=== PATIENT | male | born 1940 | race Hispanic/Latino ===

== ENCOUNTER 2021-05-14 15:57 | Inpatient (IN) | payer MEDICARE, OTHER ==
--- NOTE | 2021-05-15 08:20 | History and Physical Report ---
GP History & Physical - History of Present Illness Date of admission: 05/15/21 Date of Examination: 05/15/21 Reason for Admission: Danger to self, Danger to others, Failure of Outpatient Treatment History of Present Illness: The patient is an 80 year male with history of dementia who was admitted for stabilization. In my encounter with the patient, he is alert to self and confused. The patient is not engaging. Unable to asses SI/HI/AVHs. PAST PSYCHIATRIC HISTORY PAST MEDICAL HISTORY: unknown Family Psychiatric History: unknown SOCIAL HISTORY REVIEW OF SYSTEMS MENTAL STATUS EXAMINATION Assessment and Plan (1) Dementia with behavioral disturbance Treatment Plan Patient admitted for inpatient psychiatric evaluation, medication adjustment and close monitoring The patient's behavior, mood, sleep and appetite will be closely monitored. Patient enrolled in individual and group therapeutic sessions and encouraged to attend. Patient provided with a safe and structured environment. Patient's physical health needs will be addressed by the Hospitalist. Hospitalist Consulted Labs including CBC, CMP, Lipid profile and Hemoglobin A1C levels ordered for baseline reference Social Assessment will be completed and the Primary Care Coordinator will work with patient and family to ensure a suitable and safe disposition Medication adjustment will be made as clinically indicated Continue home meds Usual Wellness Moravian/Preservation: - Start Trazodone 50 mg po QHS & 50 mg po QHS PRN between 10 PM & 2 AM for insomnia - Start Melatonin 5 mg po QHS to promote circadian rhythm The patient agreed on the treatment plan, understood the risk, benefit, alternative treatment, potential consequence of no treatment, and gave informed consent. Estimated days: 7 Post hospital care: primary care provider, psychiatric provider Case staffed with Dr. Morocho Medications and Allergies Patient Problems: Current Active Problems Medications and Allergies Medications and Allergies Allergies Allergy/AdvReac Type Severity Reaction Status Date / Time ibuprofen Allergy Unknown Unverified 05/14/21 16:04 Home Medications Medication Instructions Recorded Confirmed Last Taken Type ALPRAZolam [Xanax TAB] 0.25 mg PO UNK PRN 05/15/21 05/15/21 Unknown History Acyclovir [Zovirax Tab] 400 mg PO BID 05/15/21 05/15/21 Unknown History Apixaban [Eliquis] 2.5 mg PO QHS 05/15/21 05/15/21 Unknown History Aspirin [[place] Aspirin EC] 81 mg PO DAILY 05/15/21 05/15/21 Unknown History Carbidopa/Levodopa [Rytary ER 1 each PO UNK 05/15/21 05/15/21 Unknown History 61.25 mg-245 mg Cap] Famotidine [Pepcid] 40 mg PO DAILY 05/15/21 05/15/21 Unknown History Fluticasone/Salmeterol [Advair 1 each IH UNK 05/15/21 05/15/21 Unknown History 250-50 Diskus] Midodrine [Proamatine] 5 mg PO QDAY 05/15/21 05/15/21 Unknown History OLANzapine [ZyPREXA] 2.5 mg PO QHS 05/15/21 05/15/21 Unknown History Pimavanserin Tartrate [Nuplazid] 34 mg PO UNK 05/15/21 05/15/21 Unknown History Venlafaxine [Effexor] 75 mg PO DAILY 05/15/21 05/15/21 Unknown History amantadine HCL [Amantadine] 100 mg PO QDAY 05/15/21 05/15/21 Unknown History traZODone [Desyrel] 100 mg PO QHS 05/15/21 05/15/21 Unknown History Results - Results Labs/Vitals: Last Vital Signs Temp 98.9 F 05/14/21 22:55 Pulse 97 H 05/14/21 22:55 Resp 20 05/14/21 22:55 BP 177/102 05/14/21 22:55 Pulse Ox 98 05/14/21 22:55 Physical Examination - Constitutional Vitals: Vital Signs Temp Pulse Resp BP Pulse Ox 98.9 F 97 H 20 177/102 98 05/14/21 22:55 05/14/21 22:55 05/14/21 22:55 05/14/21 22:55 05/14/21 22:55 Temperature -Last 24 Hours Temperature 98.9 F Mental Status Exam - Vital signs Last Vital Signs Temp 98.9 F 05/14/21 22:55 Pulse 97 H 05/14/21 22:55 Resp 20 05/14/21 22:55 BP 177/102 05/14/21 22:55 Pulse Ox 98 05/14/21 22:55 Physician Certification - Certification Statement Physician Certification Statement: This is an acknowledgement statement that NAVEEN HOFFMAN JOSE is a 80 year old M who requires inpatient psychiatric admission for treatment which could reasonably be expected to improve the patient's condition for Estimated period of time patient will need to remain in the hospital: [ ] Plan for post-hospital care: [ ]
[2021-05-15] MEDS ORDERED: [UNRECOGNIZED DRUG - OTHER] PO SCH (08:30)
[2021-05-15] MEDS ORDERED: LEVODOPA PO SCH (08:30)
[2021-05-15] MEDS ORDERED: CARBIDOPA PO SCH (08:30)
[2021-05-15] MEDS ORDERED: NON-FORMULARY EACH (Fluticasone/Salmeterol [Advair Diskus 250-50 Mcg] 1 EACH Blst.W.Dev) IH SCH (08:30)
--- NOTE | 2021-05-15 09:11 | Consultation ---
History of Present Illness - Reason for Consult Consult date: 05/15/21 Medical consult Requesting physician: DIPAK HUDSON - History of Present Illness Patient was admitted to [facility] for further evaluation and management Hospitalist service was requested for medical consult Past History Past Medical History: other (Organic brain syndrome, depression, dementia, Parkinson's disease) Past Surgical History: No surgical history Social history: smoking (Former smoker/quit many years ago). denies: alcohol abuse Family history: no significant family history Medications and Allergies Allergies Allergy/AdvReac Type Severity Reaction Status Date / Time ibuprofen Allergy Unknown Unverified 05/14/21 16:04 Home Medications Medication Instructions Recorded Confirmed Last Taken Type ALPRAZolam [Xanax TAB] 0.25 mg PO UNK PRN 05/15/21 05/15/21 Unknown History Acyclovir [Zovirax Tab] 400 mg PO BID 05/15/21 05/15/21 Unknown History Apixaban [Eliquis] 2.5 mg PO QHS 05/15/21 05/15/21 Unknown History Aspirin [[place] Aspirin EC] 81 mg PO DAILY 05/15/21 05/15/21 Unknown History Carbidopa/Levodopa [Rytary ER 1 each PO QID 05/15/21 05/16/21 Unknown History 61.25 mg-245 mg Cap] Famotidine [Pepcid] 40 mg PO DAILY 05/15/21 05/15/21 Unknown History Fluticasone/Salmeterol [Advair 1 each IH UNK 05/15/21 05/15/21 Unknown History 250-50 Diskus] Midodrine [Proamatine] 5 mg PO QDAY 05/15/21 05/15/21 Unknown History OLANzapine [ZyPREXA] 2.5 mg PO QHS 05/15/21 05/15/21 Unknown History Pimavanserin Tartrate [Nuplazid] 34 mg PO UNK 05/15/21 05/15/21 Unknown History Venlafaxine [Effexor] 75 mg PO DAILY 05/15/21 05/15/21 Unknown History amantadine HCL [Amantadine] 100 mg PO QDAY 05/15/21 05/15/21 Unknown History traZODone [Desyrel] 100 mg PO QHS 05/15/21 05/15/21 Unknown History Active Meds: Active Medications Alprazolam (Alprazolam 0.25 Mg Tab) 0.25 mg PO UNK PRN PRN Reason: UNK Amantadine HCl (Amantadine 100 Mg Cap) 100 mg PO QDAY NIELS Aspirin (Aspirin Ec 81 Mg Tab) 81 mg PO DAILY NIELS Miscellaneous Medication (Acyclovir [Zovirax Tab]) 400 mg PO BID NIELS Miscellaneous Medication (Apixaban) 2.5 mg PO QHS NIELS Miscellaneous Medication (Carbidopa/Levodopa [Rytary Er 61.25 Mg-245 Mg Cap]) 1 each PO UNK NIELS Miscellaneous Medication (Famotidine [Pepcid]) 40 mg PO DAILY NIELS Miscellaneous Medication (Fluticasone/Salmeterol [Advair Diskus 250-50 Mcg]) 1 each IH UNK NIELS Olanzapine (Olanzapine 2.5 Mg Tab) 2.5 mg PO QHS NIELS Trazodone HCl (Trazodone 100 Mg Tab) 100 mg PO QHS NIELS Venlafaxine HCl (Venlafaxine 75 Mg Tab) 75 mg PO DAILY [facility] Review of Systems ROS unobtainable: due to mental status Exam - Constitutional Vitals: Temp Pulse Resp BP Pulse Ox 98.9 F 97 H 20 177/102 98 05/14/21 22:55 05/14/21 22:55 05/14/21 22:55 05/14/21 22:55 05/14/21 22:55 General appearance: Present: no acute distress, well-nourished - EENT Eyes: Present: PERRL, EOM intact - Neck Neck: Present: supple, normal ROM - Respiratory Respiratory effort: normal Respiratory: bilateral: diminished, negative: rales, rhonchi, wheezing - Cardiovascular Rhythm: regular Heart Sounds: Present: S1 & S2 - Extremities Extremities: no ischemia, No edema - Abdominal General gastrointestinal: Present: soft, non-tender, non-distended, normal bowel sounds - Integumentary Integumentary: Present: clear, warm - Musculoskeletal Musculoskeletal: strength equal bilaterally, generalized weakness - Psychiatric Psychiatric: appropriate mood/affect, cooperative, other (Confused at times) - Neurologic Neurologic: moves all extremities Results - Labs CBC & Chem 7: 05/15/21 14:49 05/15/21 14:49 Assessment and Plan --History of depression; Management per psych team Supportive care --Dementia; Resume home medications, supportive care --Parkinson's disease; Resume home Parkinson's medications Physical therapy, fall precautions Supportive care --History of atrial fibrillation; Rate controlled, continue current management --Chronic anticoagulation/A. fib Continue Eliquis, supportive care --DVT prophylaxis; Patient is already on Eliquis --Full CODE STATUS; Closely monitor the patient and adjust the management as needed Plan of care reviewed with the patient and his nurse Thank you for this consultation We will follow the patient along with you Call us with questions
[2021-05-15] MEDS ORDERED: ACYCLOVIR 400 MG PO SCH (10:00)
[2021-05-15] MEDS ORDERED: NON-FORMULARY EACH (Famotidine [Pepcid] 40 MG Tablet) PO SCH (10:00)
[2021-05-15] MEDS: ASPIRIN EC 81 MG TAB PO SCH (10:02)
[2021-05-15] MEDS: FAMOTIDINE 20 MG TAB PO SCH (10:03)
[2021-05-15] MEDS: VENLAFAXINE 75 MG TAB PO SCH (10:03)
[2021-05-15] MEDS: ACYCLOVIR 200 MG CAP PO SCH ×2 (13:00→21:04)
[2021-05-15] MEDS: APIXABAN 2.5 MG TAB PO SCH ×2 (14:45→21:04)
[2021-05-15 15:37] LABS: Basophils % (Auto) 0.6 % (0.0-1.8); Eosinophils # (Auto) 0.1 K/mm3 (0.0-0.4); Eosinophils % (Auto) 1.4 % (0.0-4.3); Hemoglobin 12.4 gm/dl (11.8-15.2); Lymphocytes # (Auto) 0.5 K/mm3 (1.2-5.4); Lymphocytes % (Auto) 6.8 % (13.4-35.0); Mean Corpuscular HGB Conc 34 % (32-34); Mean Corpuscular Volume 103 fl (84-94); Monocytes # (Auto) 0.5 K/mm3 (0.0-0.8); Monocytes % (Auto) 6.6 % (0.0-7.3); Platelet Count 292 K/mm3 (140-440); Red Blood Count 3.49 M/mm3 (3.65-5.03); Red Cell Distribution Width 13.4 % (13.2-15.2)
[2021-05-15 15:53] LABS: Albumin 4.3 g/dL (3.9-5); Calcium 9.5 mg/dL (8.4-10.2)
[2021-05-15 16:23] LABS: Chol/HDL Ratio 3.85 %
[2021-05-15] MEDS ORDERED: ALPRAZolam 0.25 MG TAB PO PRN (18:00)
[2021-05-15] MEDS: traZODone 100 MG TAB PO SCH (21:04)
[2021-05-15] MEDS ORDERED: NON-FORMULARY EACH (Apixaban 2.5 MG Tablet) PO SCH (22:00)
[2021-05-16] MEDS: APIXABAN 2.5 MG TAB PO SCH ×3 (01:46→21:28)
[2021-05-16] MEDS: traZODone 100 MG TAB PO SCH ×2 (01:46→21:23)
[2021-05-16] MEDS: ACYCLOVIR 200 MG CAP PO SCH ×3 (01:47→21:22)
[2021-05-16] MEDS: FAMOTIDINE 20 MG TAB PO SCH (09:35)
[2021-05-16] MEDS: ASPIRIN EC 81 MG TAB PO SCH (09:35)
[2021-05-16] MEDS: VENLAFAXINE 75 MG TAB PO SCH (09:35)
--- NOTE | 2021-05-16 10:32 | Progress Note ---
Subjective Date of service: 05/16/21 Subjective Comment: 05/16/21: The patient was seen this morning with his head downward and poor eye contact. The patient is confused. He states " I want to take a nap, that's all I want to do." He denies any current suicidal/homicidal ideation and denies hallucinations. per nurse, "pt is alert and oriented to person, irritable, combative, refused medication." REVIEW OF SYSTEMS MENTAL STATUS EXAMINATION Assessment and Plan (1) Dementia with behavioral disturbance Treatment Plan Patient admitted for inpatient psychiatric evaluation, medication adjustment and close monitoring The patient's behavior, mood, sleep and appetite will be closely monitored. Patient enrolled in individual and group therapeutic sessions and encouraged to attend. Patient provided with a safe and structured environment. Patient's physical health needs will be addressed by the Hospitalist. Hospitalist Consulted Labs including CBC, CMP, Lipid profile and Hemoglobin A1C levels ordered for baseline reference Social Assessment will be completed and the Auto Mechanics Instructor will work with patient and family to ensure a suitable and safe disposition Medication adjustment will be made as clinically indicated Continue home meds Usual Wellness Shinto/Preservation: - Start Trazodone 50 mg po QHS & 50 mg po QHS PRN between 10 PM & 2 AM for insomnia - Start Melatonin 5 mg po QHS to promote circadian rhythm The patient agreed on the treatment plan, understood the risk, benefit, alternative treatment, potential consequence of no treatment, and gave informed consent. Estimated days: 6 Post hospital care: primary care provider, psychiatric provider Case staffed with Dr. Morocho Medications and Allergies Patient Problems: Current Active Problems Medications and Allergies Medications and Allergies Allergies Allergy/AdvReac Type Severity Reaction Status Date / Time ibuprofen Allergy Unknown Unverified 05/14/21 16:04 Home Medications Medication Instructions Recorded Confirmed Last Taken Type ALPRAZolam [Xanax TAB] 0.25 mg PO UNK PRN 05/15/21 05/15/21 Unknown History Acyclovir [Zovirax Tab] 400 mg PO BID 05/15/21 05/15/21 Unknown History Apixaban [Eliquis] 2.5 mg PO QHS 05/15/21 05/15/21 Unknown History Aspirin [[place] Aspirin EC] 81 mg PO DAILY 05/15/21 05/15/21 Unknown History Carbidopa/Levodopa [Rytary ER 1 each PO UNK 05/15/21 05/15/21 Unknown History 61.25 mg-245 mg Cap] Famotidine [Pepcid] 40 mg PO DAILY 05/15/21 05/15/21 Unknown History Fluticasone/Salmeterol [Advair 1 each IH UNK 05/15/21 05/15/21 Unknown History 250-50 Diskus] Midodrine [Proamatine] 5 mg PO QDAY 05/15/21 05/15/21 Unknown History OLANzapine [ZyPREXA] 2.5 mg PO QHS 05/15/21 05/15/21 Unknown History Pimavanserin Tartrate [Nuplazid] 34 mg PO UNK 05/15/21 05/15/21 Unknown History Venlafaxine [Effexor] 75 mg PO DAILY 05/15/21 05/15/21 Unknown History amantadine HCL [Amantadine] 100 mg PO QDAY 05/15/21 05/15/21 Unknown History traZODone [Desyrel] 100 mg PO QHS 05/15/21 05/15/21 Unknown History Active Meds: Active Medications Acyclovir (Acyclovir 200 Mg Cap) 400 mg PO BID [facility] Last Admin: 05/16/21 09:35 Dose: 400 mg Alprazolam (Alprazolam 0.25 Mg Tab) 0.25 mg PO QPM PRN PRN Reason: NERVES Amantadine HCl (Amantadine 100 Mg Cap) 100 mg PO QDAY [facility] Last Admin: 05/15/21 13:00 Dose: 100 mg Apixaban (Apixaban 2.5 Mg Tab) 2.5 mg PO Q12HR [facility]; Protocol Last Admin: 05/16/21 09:35 Dose: 2.5 mg Arformoterol Tartrate (Arformoterol 15 Mcg/2 Ml Nebu) 15 mcg IH Q12HRT [facility] Aspirin (Aspirin Ec 81 Mg Tab) 81 mg PO DAILY [facility] Last Admin: 05/16/21 09:35 Dose: 81 mg Budesonide (Budesonide 0.5 Mg/2 Ml Nebu) 0.5 mg IH Q12HRT [facility] Famotidine (Famotidine 20 Mg Tab) 40 mg PO DAILY [facility] Last Admin: 05/16/21 09:35 Dose: 40 mg Miscellaneous Medication (Carbidopa/Levodopa [Rytary Er 61.25 Mg-245 Mg Cap]) 1 each PO UNK [facility] Olanzapine (Olanzapine 2.5 Mg Tab) 2.5 mg PO QHS [facility] Last Admin: 05/15/21 21:04 Dose: 2.5 mg Trazodone HCl (Trazodone 100 Mg Tab) 100 mg PO QHS [facility] Last Admin: 05/16/21 01:46 Dose: Not Given Venlafaxine HCl (Venlafaxine 75 Mg Tab) 75 mg PO DAILY [facility] Last Admin: 05/16/21 09:35 Dose: 75 mg Results - Results Labs/Vitals: Laboratory Last Values WBC 8.0 K/mm3 (4.5-11.0) 05/15/21 14:49 RBC 3.49 M/mm3 (3.65-5.03) L 05/15/21 14:49 Hgb 12.4 gm/dl (11.8-15.2) 05/15/21 14:49 Hct 36.0 % (35.5-45.6) 05/15/21 14:49 MCV 103 fl (84-94) H 05/15/21 14:49 MCH 36 pg (28-32) H 05/15/21 14:49 MCHC 34 % (32-34) 05/15/21 14:49 RDW 13.4 % (13.2-15.2) 05/15/21 14:49 Plt Count 292 K/mm3 (140-440) 05/15/21 14:49 Lymph % (Auto) 6.8 % (13.4-35.0) L 05/15/21 14:49 [place] % (Auto) 6.6 % (0.0-7.3) 05/15/21 14:49 Eos % (Auto) 1.4 % (0.0-4.3) 05/15/21 14:49 Baso % (Auto) 0.6 % (0.0-1.8) 05/15/21 14:49 Lymph # (Auto) 0.5 K/mm3 (1.2-5.4) L 05/15/21 14:49 [place] # (Auto) 0.5 K/mm3 (0.0-0.8) 05/15/21 14:49 Eos # (Auto) 0.1 K/mm3 (0.0-0.4) 05/15/21 14:49 Baso # (Auto) 0.0 K/mm3 (0.0-0.1) 05/15/21 14:49 Seg Neutrophils % 84.6 % (40.0-70.0) H 05/15/21 14:49 Seg Neutrophils # 6.8 K/mm3 (1.8-7.7) 05/15/21 14:49 Sodium 140 mmol/L (137-145) 05/15/21 14:49 Potassium 4.7 mmol/L (3.6-5.0) 05/15/21 14:49 Chloride 101.5 mmol/L (98-107) 05/15/21 14:49 Carbon Dioxide 21 mmol/L (22-30) L 05/15/21 14:49 Anion Gap 22 mmol/L 05/15/21 14:49 BUN 45 mg/dL (9-20) H 05/15/21 14:49 Creatinine 1.8 mg/dL (0.8-1.3) H 05/15/21 14:49 Estimated GFR 36 ml/min 05/15/21 14:49 BUN/Creatinine Ratio 25 % 05/15/21 14:49 Glucose 117 mg/dL (75-100) H 05/15/21 14:49 Hemoglobin A1c 4.9 % (4-6) 05/15/21 14:49 Calcium 9.5 mg/dL (8.4-10.2) 05/15/21 14:49 Total Bilirubin 0.30 mg/dL (0.1-1.2) 05/15/21 14:49 AST 19 units/L (5-40) 05/15/21 14:49 ALT 14 units/L (7-56) 05/15/21 14:49 Alkaline Phosphatase 89 units/L (35-129) 05/15/21 14:49 Total Protein 7.5 g/dL (6.3-8.2) 05/15/21 14:49 Albumin 4.3 g/dL (3.9-5) 05/15/21 14:49 Albumin/Globulin Ratio 1.3 % 05/15/21 14:49 Triglycerides 119 mg/dL (2-149) 05/15/21 14:49 Cholesterol 235 mg/dL (50-199) H 05/15/21 14:49 LDL Cholesterol Direct 161 mg/dL (50-130) H 05/15/21 14:49 HDL Cholesterol 61 mg/dL (40-59) H 05/15/21 14:49 Cholesterol/HDL Ratio 3.85 % 05/15/21 14:49 TSH 6.060 mlU/mL (0.270-4.200) H 05/15/21 14:49 Last Vital Signs Temp 98.7 F 05/15/21 19:20 Pulse 104 H 05/15/21 19:20 Resp 17 05/15/21 19:20 BP 176/88 05/15/21 19:20 Pulse Ox 96 05/15/21 19:20
[2021-05-16] MEDS: ARFORMOTEROL 15 MCG/2 ML NEBU IH SCH ×3 (12:21→22:17)
[2021-05-16] MEDS: BUDESONIDE 0.5 MG/2 ML NEBU IH SCH ×3 (12:22→22:17)
[2021-05-16] MEDS: LEVODOPA PO SCH ×2 (18:51→21:19)
[2021-05-16] MEDS: CARBIDOPA PO SCH ×2 (18:51→21:19)
--- NOTE | 2021-05-16 21:42 | Progress Note ---
Assessment and Plan Assessment and plan: --Parkinson's disease; Resume home Parkinson's medications Physical therapy, fall precautions Supportive care --History of atrial fibrillation; Rate controlled, continue current management --Chronic anticoagulation/A. fib Continue Eliquis, supportive care --History of depression; Management per psych team Supportive care --Dementia; Resume home medications, supportive care --DVT prophylaxis; Patient is already on Eliquis --Full CODE STATUS; Closely monitor the patient and adjust the management as needed Plan of care reviewed with the patient and his nurse Thank you for this consultation We will follow the patient along with you Call us with questions Continue current management Call us with questions History Interval history: I have seen and examined the patient in day room Fixing to have lunch, patient is cheerful Responding to simple questions appropriately No new complaints not in acute distress Vital signs reviewed Hospitalist Physical - Constitutional Vitals: Temp Pulse Resp BP Pulse Ox 98.6 F 80 20 159/81 97 05/16/21 19:59 05/16/21 19:59 05/16/21 19:59 05/16/21 19:59 05/16/21 19:59 General appearance: Present: no acute distress, well-nourished, other ( patient is cheerful) - EENT Eyes: Present: PERRL, EOM intact - Neck Neck: Present: supple, normal ROM - Respiratory Respiratory effort: normal Respiratory: bilateral: diminished, negative: rales, rhonchi, wheezing - Cardiovascular Rhythm: regular Heart Sounds: Present: S1 & S2 - Extremities Extremities: no ischemia, No edema - Abdominal General gastrointestinal: soft, non-tender, non-distended, normal bowel sounds - Integumentary Integumentary: Present: clear, warm - Psychiatric Psychiatric: appropriate mood/affect, cooperative - Neurologic Neurologic: CNII-XII intact, moves all extremities Results - Labs CBC & Chem 7: 05/15/21 14:49 05/15/21 14:49 Labs: Laboratory Last Values WBC 8.0 K/mm3 (4.5-11.0) 05/15/21 14:49 RBC 3.49 M/mm3 (3.65-5.03) L 05/15/21 14:49 Hgb 12.4 gm/dl (11.8-15.2) 05/15/21 14:49 Hct 36.0 % (35.5-45.6) 05/15/21 14:49 MCV 103 fl (84-94) H 05/15/21 14:49 MCH 36 pg (28-32) H 05/15/21 14:49 MCHC 34 % (32-34) 05/15/21 14:49 RDW 13.4 % (13.2-15.2) 05/15/21 14:49 Plt Count 292 K/mm3 (140-440) 05/15/21 14:49 Lymph % (Auto) 6.8 % (13.4-35.0) L 05/15/21 14:49 [place] % (Auto) 6.6 % (0.0-7.3) 05/15/21 14:49 Eos % (Auto) 1.4 % (0.0-4.3) 05/15/21 14:49 Baso % (Auto) 0.6 % (0.0-1.8) 05/15/21 14:49 Lymph # (Auto) 0.5 K/mm3 (1.2-5.4) L 05/15/21 14:49 [place] # (Auto) 0.5 K/mm3 (0.0-0.8) 05/15/21 14:49 Eos # (Auto) 0.1 K/mm3 (0.0-0.4) 05/15/21 14:49 Baso # (Auto) 0.0 K/mm3 (0.0-0.1) 05/15/21 14:49 Seg Neutrophils % 84.6 % (40.0-70.0) H 05/15/21 14:49 Seg Neutrophils # 6.8 K/mm3 (1.8-7.7) 05/15/21 14:49 Sodium 140 mmol/L (137-145) 05/15/21 14:49 Potassium 4.7 mmol/L (3.6-5.0) 05/15/21 14:49 Chloride 101.5 mmol/L (98-107) 05/15/21 14:49 Carbon Dioxide 21 mmol/L (22-30) L 05/15/21 14:49 Anion Gap 22 mmol/L 05/15/21 14:49 BUN 45 mg/dL (9-20) H 05/15/21 14:49 Creatinine 1.8 mg/dL (0.8-1.3) H 05/15/21 14:49 Estimated GFR 36 ml/min 05/15/21 14:49 BUN/Creatinine Ratio 25 % 05/15/21 14:49 Glucose 117 mg/dL (75-100) H 05/15/21 14:49 Hemoglobin A1c 4.9 % (4-6) 05/15/21 14:49 Calcium 9.5 mg/dL (8.4-10.2) 05/15/21 14:49 Total Bilirubin 0.30 mg/dL (0.1-1.2) 05/15/21 14:49 AST 19 units/L (5-40) 05/15/21 14:49 ALT 14 units/L (7-56) 05/15/21 14:49 Alkaline Phosphatase 89 units/L (35-129) 05/15/21 14:49 Total Protein 7.5 g/dL (6.3-8.2) 05/15/21 14:49 Albumin 4.3 g/dL (3.9-5) 05/15/21 14:49 Albumin/Globulin Ratio 1.3 % 05/15/21 14:49 Triglycerides 119 mg/dL (2-149) 05/15/21 14:49 Cholesterol 235 mg/dL (50-199) H 05/15/21 14:49 LDL Cholesterol Direct 161 mg/dL (50-130) H 05/15/21 14:49 HDL Cholesterol 61 mg/dL (40-59) H 05/15/21 14:49 Cholesterol/HDL Ratio 3.85 % 05/15/21 14:49 TSH 6.060 mlU/mL (0.270-4.200) H 05/15/21 14:49 Hernandez/IV: Voiding Method Diaper Active Medications - Current Medications Current Medications: Generic Name Dose Route Start Last Admin Trade Name Freq PRN Reason Stop Dose Admin Acyclovir 400 mg 05/15/21 10:00 05/16/21 21:22 Acyclovir 200 Mg Cap PO 400 mg BID NIELS Administration Alprazolam 0.25 mg 05/15/21 18:00 05/16/21 21:24 Alprazolam 0.25 Mg Tab PO 0.25 mg QPM PRN Administration NERVES Amantadine HCl 100 mg 05/15/21 10:00 05/16/21 10:46 Amantadine 100 Mg Cap PO Not Given QDAY NIELS Apixaban 2.5 mg 05/15/21 14:00 05/16/21 21:28 Apixaban 2.5 Mg Tab PO Not Given Q12HR [facility] Protocol Arformoterol Tartrate 15 mcg 05/15/21 12:00 05/16/21 12:22 Arformoterol 15 Mcg/2 Ml Nebu IH Not Given Q12HRT NIELS Aspirin 81 mg 05/15/21 10:00 05/16/21 09:35 Aspirin Ec 81 Mg Tab PO Not Given DAILY NIELS Budesonide 0.5 mg 05/15/21 12:00 05/16/21 12:23 Budesonide 0.5 Mg/2 Ml Nebu IH Not Given Q12HRT NIELS Famotidine 40 mg 05/15/21 10:00 05/16/21 09:35 Famotidine 20 Mg Tab PO Not Given DAILY NIELS Miscellaneous Medication 0 each 05/16/21 17:00 05/16/21 21:19 Carbidopa/Levodopa [Rytary Er 61.25 Mg-245 Mg Cap] PO 61.25 each 0700,1200,1700,2200 NIELS Administration Olanzapine 2.5 mg 05/15/21 22:00 05/16/21 21:27 Olanzapine 2.5 Mg Tab PO 2.5 mg QHS NIELS Administration Trazodone HCl 100 mg 05/15/21 22:00 05/16/21 21:23 Trazodone 100 Mg Tab PO 100 mg QHS NIELS Administration Venlafaxine HCl 75 mg 05/15/21 10:00 05/16/21 09:35 Venlafaxine 75 Mg Tab PO Not Given DAILY [facility]EL[facility]
[2021-05-17] MEDS: ARFORMOTEROL 15 MCG/2 ML NEBU IH SCH (07:56)
[2021-05-17] MEDS: BUDESONIDE 0.5 MG/2 ML NEBU IH SCH (07:56)
[2021-05-17] MEDS: LEVODOPA PO SCH ×4 (08:24→21:48)
[2021-05-17] MEDS: CARBIDOPA PO SCH ×4 (08:24→21:48)
--- NOTE | 2021-05-17 08:58 | Progress Note ---
Subjective Date of service: 05/17/21 Subjective Comment: 05/17/21: The patient was seen this morning. He asked time it was " I'm ready for breakfast." The patient states sleep and appetite as ok. He denies any current suicidal/homicidal ideation and when asked about AVHs he states " I don't know." 05/16/21: The patient was seen this morning with his head downward and poor eye contact. The patient is confused. He states " I want to take a nap, that's all I want to do." He denies any current suicidal/homicidal ideation and denies hallucinations. per nurse, "pt is alert and oriented to person, irritable, combative, refused medication." REVIEW OF SYSTEMS MENTAL STATUS EXAMINATION Assessment and Plan (1) Dementia with behavioral disturbance Treatment Plan Patient admitted for inpatient psychiatric evaluation, medication adjustment and close monitoring The patient's behavior, mood, sleep and appetite will be closely monitored. Patient enrolled in individual and group therapeutic sessions and encouraged to attend. Patient provided with a safe and structured environment. Patient's physical health needs will be addressed by the Hospitalist. Hospitalist Consulted Labs including CBC, CMP, Lipid profile and Hemoglobin A1C levels ordered for baseline reference Social Assessment will be completed and the Automatic Typewriter Inspector will work with patient and family to ensure a suitable and safe disposition Medication adjustment will be made as clinically indicated Continue home meds Usual Wellness Gnosticism/Preservation: - Start Trazodone 50 mg po QHS & 50 mg po QHS PRN between 10 PM & 2 AM for insomnia - Start Melatonin 5 mg po QHS to promote circadian rhythm The patient agreed on the treatment plan, understood the risk, benefit, alternative treatment, potential consequence of no treatment, and gave informed consent. Estimated days: 5 Post hospital care: primary care provider, psychiatric provider Case staffed with Dr. Morocho Medications and Allergies Patient Problems: Current Active Problems Medications and Allergies Medications and Allergies Allergies Allergy/AdvReac Type Severity Reaction Status Date / Time ibuprofen Allergy Unknown Unverified 05/14/21 16:04 Home Medications Medication Instructions Recorded Confirmed Last Taken Type ALPRAZolam [Xanax TAB] 0.25 mg PO UNK PRN 05/15/21 05/15/21 Unknown History Acyclovir [Zovirax Tab] 400 mg PO BID 05/15/21 05/15/21 Unknown History Apixaban [Eliquis] 2.5 mg PO QHS 05/15/21 05/15/21 Unknown History Aspirin [[place] Aspirin EC] 81 mg PO DAILY 05/15/21 05/15/21 Unknown History Carbidopa/Levodopa [Rytary ER 1 each PO QID 05/15/21 05/16/21 Unknown History 61.25 mg-245 mg Cap] Famotidine [Pepcid] 40 mg PO DAILY 05/15/21 05/15/21 Unknown History Fluticasone/Salmeterol [Advair 1 each IH UNK 05/15/21 05/15/21 Unknown History 250-50 Diskus] Midodrine [Proamatine] 5 mg PO QDAY 05/15/21 05/15/21 Unknown History OLANzapine [ZyPREXA] 2.5 mg PO QHS 05/15/21 05/15/21 Unknown History Pimavanserin Tartrate [Nuplazid] 34 mg PO UNK 05/15/21 05/15/21 Unknown History Venlafaxine [Effexor] 75 mg PO DAILY 05/15/21 05/15/21 Unknown History amantadine HCL [Amantadine] 100 mg PO QDAY 05/15/21 05/15/21 Unknown History traZODone [Desyrel] 100 mg PO QHS 05/15/21 05/15/21 Unknown History Active Meds: Active Medications Acyclovir (Acyclovir 200 Mg Cap) 400 mg PO BID [facility] Last Admin: 05/16/21 21:22 Dose: 400 mg Alprazolam (Alprazolam 0.25 Mg Tab) 0.25 mg PO QPM PRN PRN Reason: NERVES Last Admin: 05/16/21 21:24 Dose: 0.25 mg Amantadine HCl (Amantadine 100 Mg Cap) 100 mg PO QDAY [facility] Last Admin: 05/16/21 10:46 Dose: Not Given Apixaban (Apixaban 2.5 Mg Tab) 2.5 mg PO Q12HR [facility]; Protocol Last Admin: 05/16/21 21:28 Dose: Not Given Arformoterol Tartrate (Arformoterol 15 Mcg/2 Ml Nebu) 15 mcg IH Q12HRT [facility] Last Admin: 05/17/21 07:56 Dose: 15 mcg Aspirin (Aspirin Ec 81 Mg Tab) 81 mg PO DAILY [facility] Last Admin: 05/16/21 09:35 Dose: Not Given Budesonide (Budesonide 0.5 Mg/2 Ml Nebu) 0.5 mg IH Q12HRT [facility] Last Admin: 05/17/21 07:56 Dose: 0.5 mg Famotidine (Famotidine 20 Mg Tab) 40 mg PO DAILY [facility] Last Admin: 05/16/21 09:35 Dose: Not Given Miscellaneous Medication (Carbidopa/Levodopa [Rytary Er 61.25 Mg-245 Mg Cap]) 0 each PO 0700,1200,1700,2200 [facility] Last Admin: 05/17/21 08:24 Dose: Not Given Olanzapine (Olanzapine 2.5 Mg Tab) 2.5 mg PO QHS [facility] Last Admin: 05/16/21 21:27 Dose: 2.5 mg Trazodone HCl (Trazodone 100 Mg Tab) 100 mg PO QHS [facility] Last Admin: 05/16/21 21:23 Dose: 100 mg Venlafaxine HCl (Venlafaxine 75 Mg Tab) 75 mg PO DAILY [facility] Last Admin: 05/16/21 09:35 Dose: Not Given Results - Results Labs/Vitals: Laboratory Last Values WBC 8.0 K/mm3 (4.5-11.0) 05/15/21 14:49 RBC 3.49 M/mm3 (3.65-5.03) L 05/15/21 14:49 Hgb 12.4 gm/dl (11.8-15.2) 05/15/21 14:49 Hct 36.0 % (35.5-45.6) 05/15/21 14:49 MCV 103 fl (84-94) H 05/15/21 14:49 MCH 36 pg (28-32) H 05/15/21 14:49 MCHC 34 % (32-34) 05/15/21 14:49 RDW 13.4 % (13.2-15.2) 05/15/21 14:49 Plt Count 292 K/mm3 (140-440) 05/15/21 14:49 Lymph % (Auto) 6.8 % (13.4-35.0) L 05/15/21 14:49 [place] % (Auto) 6.6 % (0.0-7.3) 05/15/21 14:49 Eos % (Auto) 1.4 % (0.0-4.3) 05/15/21 14:49 Baso % (Auto) 0.6 % (0.0-1.8) 05/15/21 14:49 Lymph # (Auto) 0.5 K/mm3 (1.2-5.4) L 05/15/21 14:49 [place] # (Auto) 0.5 K/mm3 (0.0-0.8) 05/15/21 14:49 Eos # (Auto) 0.1 K/mm3 (0.0-0.4) 05/15/21 14:49 Baso # (Auto) 0.0 K/mm3 (0.0-0.1) 05/15/21 14:49 Seg Neutrophils % 84.6 % (40.0-70.0) H 05/15/21 14:49 Seg Neutrophils # 6.8 K/mm3 (1.8-7.7) 05/15/21 14:49 Sodium 140 mmol/L (137-145) 05/15/21 14:49 Potassium 4.7 mmol/L (3.6-5.0) 05/15/21 14:49 Chloride 101.5 mmol/L (98-107) 05/15/21 14:49 Carbon Dioxide 21 mmol/L (22-30) L 05/15/21 14:49 Anion Gap 22 mmol/L 05/15/21 14:49 BUN 45 mg/dL (9-20) H 05/15/21 14:49 Creatinine 1.8 mg/dL (0.8-1.3) H 05/15/21 14:49 Estimated GFR 36 ml/min 05/15/21 14:49 BUN/Creatinine Ratio 25 % 05/15/21 14:49 Glucose 117 mg/dL (75-100) H 05/15/21 14:49 Hemoglobin A1c 4.9 % (4-6) 05/15/21 14:49 Calcium 9.5 mg/dL (8.4-10.2) 05/15/21 14:49 Total Bilirubin 0.30 mg/dL (0.1-1.2) 05/15/21 14:49 AST 19 units/L (5-40) 05/15/21 14:49 ALT 14 units/L (7-56) 05/15/21 14:49 Alkaline Phosphatase 89 units/L (35-129) 05/15/21 14:49 Total Protein 7.5 g/dL (6.3-8.2) 05/15/21 14:49 Albumin 4.3 g/dL (3.9-5) 05/15/21 14:49 Albumin/Globulin Ratio 1.3 % 05/15/21 14:49 Triglycerides 119 mg/dL (2-149) 05/15/21 14:49 Cholesterol 235 mg/dL (50-199) H 05/15/21 14:49 LDL Cholesterol Direct 161 mg/dL (50-130) H 05/15/21 14:49 HDL Cholesterol 61 mg/dL (40-59) H 05/15/21 14:49 Cholesterol/HDL Ratio 3.85 % 05/15/21 14:49 TSH 6.060 mlU/mL (0.270-4.200) H 05/15/21 14:49 Last Vital Signs Temp 98.6 F 05/16/21 19:59 Pulse 69 05/17/21 07:56 Resp 18 05/17/21 07:56 BP 159/81 05/16/21 19:59 Pulse Ox 97 05/16/21 19:59
[2021-05-17] MEDS: VENLAFAXINE 75 MG TAB PO SCH (10:53)
[2021-05-17] MEDS: ACYCLOVIR 200 MG CAP PO SCH ×2 (11:10→21:52)
[2021-05-17] MEDS: ASPIRIN EC 81 MG TAB PO SCH (11:15)
[2021-05-17] MEDS: APIXABAN 2.5 MG TAB PO SCH ×2 (11:16→21:52)
[2021-05-17] MEDS: FAMOTIDINE 20 MG TAB PO SCH (11:52)
--- NOTE | 2021-05-17 20:48 | Progress Note ---
Assessment and Plan Assessment and plan: --History of atrial fibrillation; Rate controlled, continue current management --Chronic anticoagulation/A. fib On Eliquis, supportive care --History of depression; Management per psych team Supportive care --Parkinson's disease; Resume home Parkinson's medications Physical therapy, fall precautions Supportive care --Dementia; Resume home medications, supportive care --DVT prophylaxis; Patient is already on Eliquis --Full CODE STATUS; Closely monitor the patient and adjust the management as needed Plan of care reviewed with the patient and his nurse Thank you for this consultation We will follow the patient along with you Call us with questions Continue current management Call us with questions History Interval history: I have seen and examined the patient in his room No new events reported by the nursing staff Patient was reading a book, cheerful No new complaints Vital signs reviewed Hospitalist Physical - Constitutional Vitals: Temp Pulse Resp BP Pulse Ox 98.6 F 69 18 159/81 97 05/16/21 19:59 05/17/21 07:56 05/17/21 07:56 05/16/21 19:59 05/16/21 19:59 General appearance: Present: no acute distress, well-nourished, other ( patient is cheerful) - EENT Eyes: Present: PERRL, EOM intact - Neck Neck: Present: supple, normal ROM - Respiratory Respiratory effort: normal Respiratory: bilateral: diminished, negative: rales, rhonchi, wheezing - Cardiovascular Rhythm: regular Heart Sounds: Present: S1 & S2 - Extremities Extremities: no ischemia, No edema - Abdominal General gastrointestinal: soft, non-tender, non-distended, normal bowel sounds - Integumentary Integumentary: Present: clear, warm - Psychiatric Psychiatric: appropriate mood/affect, cooperative - Neurologic Neurologic: moves all extremities Results - Labs CBC & Chem 7: 05/15/21 14:49 05/15/21 14:49 Labs: Laboratory Last Values WBC 8.0 K/mm3 (4.5-11.0) 05/15/21 14:49 RBC 3.49 M/mm3 (3.65-5.03) L 05/15/21 14:49 Hgb 12.4 gm/dl (11.8-15.2) 05/15/21 14:49 Hct 36.0 % (35.5-45.6) 05/15/21 14:49 MCV 103 fl (84-94) H 05/15/21 14:49 MCH 36 pg (28-32) H 05/15/21 14:49 MCHC 34 % (32-34) 05/15/21 14:49 RDW 13.4 % (13.2-15.2) 05/15/21 14:49 Plt Count 292 K/mm3 (140-440) 05/15/21 14:49 Lymph % (Auto) 6.8 % (13.4-35.0) L 05/15/21 14:49 [place] % (Auto) 6.6 % (0.0-7.3) 05/15/21 14:49 Eos % (Auto) 1.4 % (0.0-4.3) 05/15/21 14:49 Baso % (Auto) 0.6 % (0.0-1.8) 05/15/21 14:49 Lymph # (Auto) 0.5 K/mm3 (1.2-5.4) L 05/15/21 14:49 [place] # (Auto) 0.5 K/mm3 (0.0-0.8) 05/15/21 14:49 Eos # (Auto) 0.1 K/mm3 (0.0-0.4) 05/15/21 14:49 Baso # (Auto) 0.0 K/mm3 (0.0-0.1) 05/15/21 14:49 Seg Neutrophils % 84.6 % (40.0-70.0) H 05/15/21 14:49 Seg Neutrophils # 6.8 K/mm3 (1.8-7.7) 05/15/21 14:49 Sodium 140 mmol/L (137-145) 05/15/21 14:49 Potassium 4.7 mmol/L (3.6-5.0) 05/15/21 14:49 Chloride 101.5 mmol/L (98-107) 05/15/21 14:49 Carbon Dioxide 21 mmol/L (22-30) L 05/15/21 14:49 Anion Gap 22 mmol/L 05/15/21 14:49 BUN 45 mg/dL (9-20) H 05/15/21 14:49 Creatinine 1.8 mg/dL (0.8-1.3) H 05/15/21 14:49 Estimated GFR 36 ml/min 05/15/21 14:49 BUN/Creatinine Ratio 25 % 05/15/21 14:49 Glucose 117 mg/dL (75-100) H 05/15/21 14:49 Hemoglobin A1c 4.9 % (4-6) 05/15/21 14:49 Calcium 9.5 mg/dL (8.4-10.2) 05/15/21 14:49 Total Bilirubin 0.30 mg/dL (0.1-1.2) 05/15/21 14:49 AST 19 units/L (5-40) 05/15/21 14:49 ALT 14 units/L (7-56) 05/15/21 14:49 Alkaline Phosphatase 89 units/L (35-129) 05/15/21 14:49 Total Protein 7.5 g/dL (6.3-8.2) 05/15/21 14:49 Albumin 4.3 g/dL (3.9-5) 05/15/21 14:49 Albumin/Globulin Ratio 1.3 % 05/15/21 14:49 Triglycerides 119 mg/dL (2-149) 05/15/21 14:49 Cholesterol 235 mg/dL (50-199) H 05/15/21 14:49 LDL Cholesterol Direct 161 mg/dL (50-130) H 05/15/21 14:49 HDL Cholesterol 61 mg/dL (40-59) H 05/15/21 14:49 Cholesterol/HDL Ratio 3.85 % 05/15/21 14:49 TSH 6.060 mlU/mL (0.270-4.200) H 05/15/21 14:49 Hernandez/IV: Voiding Method Diaper Active Medications - Current Medications Current Medications: Generic Name Dose Route Start Last Admin Trade Name Freq PRN Reason Stop Dose Admin Acyclovir 400 mg 05/15/21 10:00 05/17/21 11:10 Acyclovir 200 Mg Cap PO 400 mg BID NIELS Administration Alprazolam 0.25 mg 05/15/21 18:00 05/16/21 21:24 Alprazolam 0.25 Mg Tab PO 0.25 mg QPM PRN Administration NERVES Amantadine HCl 100 mg 05/15/21 10:00 05/17/21 11:05 Amantadine 100 Mg Cap PO 100 mg QDAY NIELS Administration Apixaban 2.5 mg 05/15/21 14:00 05/17/21 11:16 Apixaban 2.5 Mg Tab PO 2.5 mg Q12HR NIELS Administration Protocol Arformoterol Tartrate 15 mcg 05/15/21 12:00 05/17/21 07:56 Arformoterol 15 Mcg/2 Ml Nebu IH 15 mcg Q12HRT NIELS Administration Aspirin 81 mg 05/15/21 10:00 05/17/21 11:15 Aspirin Ec 81 Mg Tab PO 81 mg DAILY NIELS Administration Budesonide 0.5 mg 05/15/21 12:00 05/17/21 07:56 Budesonide 0.5 Mg/2 Ml Nebu IH 0.5 mg Q12HRT NIELS Administration Famotidine 40 mg 05/15/21 10:00 05/17/21 11:52 Famotidine 20 Mg Tab PO 40 mg DAILY NIELS Administration Miscellaneous Medication 0 each 05/16/21 17:00 05/17/21 18:37 Carbidopa/Levodopa [Rytary Er 61.25 Mg-245 Mg Cap] PO 1 each 0700,1200,1700,2200 NIELS Administration Olanzapine 2.5 mg 05/15/21 22:00 05/16/21 21:27 Olanzapine 2.5 Mg Tab PO 2.5 mg QHS NIELS Administration Trazodone HCl 100 mg 05/15/21 22:00 05/16/21 21:23 Trazodone 100 Mg Tab PO 100 mg QHS NIELS Administration Venlafaxine HCl 75 mg 05/15/21 10:00 05/17/21 10:53 Venlafaxine 75 Mg Tab PO 75 mg DAILY NIELS Administration
[2021-05-17] MEDS: traZODone 100 MG TAB PO SCH (21:51)
[2021-05-18] MEDS: ARFORMOTEROL 15 MCG/2 ML NEBU IH SCH ×2 (04:53→08:09)
[2021-05-18] MEDS: BUDESONIDE 0.5 MG/2 ML NEBU IH SCH ×2 (04:54→08:09)
[2021-05-18] MEDS: CARBIDOPA PO SCH ×4 (06:04→20:59)
[2021-05-18] MEDS: LEVODOPA PO SCH ×4 (06:04→20:59)
--- NOTE | 2021-05-18 08:49 | Progress Note ---
Subjective Date of service: 05/18/21 Subjective Comment: 05/18/21:The patient was seen this morning. He reports doing well. The patient is tearful and depressed. He reports having auditory hallucinations " I hear it everyday, it's like hearing a show on the TV." 05/17/21: The patient was seen this morning. He asked time it was " I'm ready for breakfast." The patient states sleep and appetite as ok. He denies any current suicidal/homicidal ideation and when asked about AVHs he states " I d on't know." 05/16/21: The patient was seen this morning with his head downward and poor eye contact. The patient is confused. He states " I want to take a nap, that's all I want to do." He denies any current suicidal/homicidal ideation and denies hallucinations. per nurse, "pt is alert and oriented to person, irritable, combative, refused medication." REVIEW OF SYSTEMS MENTAL STATUS EXAMINATION Assessment and Plan (1) Dementia with behavioral disturbance Treatment Plan Patient admitted for inpatient psychiatric evaluation, medication adjustment and close monitoring The patient's behavior, mood, sleep and appetite will be closely monitored. Patient enrolled in individual and group therapeutic sessions and encouraged to attend. Patient provided with a safe and structured environment. Patient's physical health needs will be addressed by the Hospitalist. Hospitalist Consulted Labs including CBC, CMP, Lipid profile and Hemoglobin A1C levels ordered for baseline reference Social Assessment will be completed and the Master Dyer will work with patient and family to ensure a suitable and safe disposition Medication adjustment will be made as clinically indicated Continue home meds Start Effexor 75mg po BID Usual Wellness Episcopal/Preservation: - Start Trazodone 50 mg po QHS & 50 mg po QHS PRN between 10 PM & 2 AM for insomnia - Start Melatonin 5 mg po QHS to promote circadian rhythm The patient agreed on the treatment plan, understood the risk, benefit, alternative treatment, potential consequence of no treatment, and gave informed consent. Estimated days: 5 Post hospital care: primary care provider, psychiatric provider Case staffed with Dr. Morocho Medications and Allergies Patient Problems: Current Active Problems Medications and Allergies Medications and Allergies Allergies Allergy/AdvReac Type Severity Reaction Status Date / Time ibuprofen Allergy Unknown Unverified 05/14/21 16:04 Home Medications Medication Instructions Recorded Confirmed Last Taken Type ALPRAZolam [Xanax TAB] 0.25 mg PO UNK PRN 05/15/21 05/15/21 Unknown History Acyclovir [Zovirax Tab] 400 mg PO BID 05/15/21 05/15/21 Unknown History Apixaban [Eliquis] 2.5 mg PO QHS 05/15/21 05/15/21 Unknown History Aspirin [[place] Aspirin EC] 81 mg PO DAILY 05/15/21 05/15/21 Unknown History Carbidopa/Levodopa [Rytary ER 1 each PO QID 05/15/21 05/16/21 Unknown History 61.25 mg-245 mg Cap] Famotidine [Pepcid] 40 mg PO DAILY 05/15/21 05/15/21 Unknown History Fluticasone/Salmeterol [Advair 1 each IH UNK 05/15/21 05/15/21 Unknown History 250-50 Diskus] Midodrine [Proamatine] 5 mg PO QDAY 05/15/21 05/15/21 Unknown History OLANzapine [ZyPREXA] 2.5 mg PO QHS 05/15/21 05/15/21 Unknown History Pimavanserin Tartrate [Nuplazid] 34 mg PO UNK 05/15/21 05/15/21 Unknown History Venlafaxine [Effexor] 75 mg PO DAILY 05/15/21 05/15/21 Unknown History amantadine HCL [Amantadine] 100 mg PO QDAY 05/15/21 05/15/21 Unknown History traZODone [Desyrel] 100 mg PO QHS 05/15/21 05/15/21 Unknown History Active Meds: Active Medications Acyclovir (Acyclovir 200 Mg Cap) 400 mg PO BID [facility] Last Admin: 05/17/21 21:52 Dose: 400 mg Alprazolam (Alprazolam 0.25 Mg Tab) 0.25 mg PO QPM PRN PRN Reason: NERVES Last Admin: 05/16/21 21:24 Dose: 0.25 mg Amantadine HCl (Amantadine 100 Mg Cap) 100 mg PO QDAY [facility] Last Admin: 05/17/21 11:05 Dose: 100 mg Apixaban (Apixaban 2.5 Mg Tab) 2.5 mg PO Q12HR [facility]; Protocol Last Admin: 05/17/21 21:52 Dose: 2.5 mg Arformoterol Tartrate (Arformoterol 15 Mcg/2 Ml Nebu) 15 mcg IH Q12HRT [facility] Last Admin: 05/18/21 08:09 Dose: 15 mcg Aspirin (Aspirin Ec 81 Mg Tab) 81 mg PO DAILY [facility] Last Admin: 05/17/21 11:15 Dose: 81 mg Budesonide (Budesonide 0.5 Mg/2 Ml Nebu) 0.5 mg IH Q12HRT [facility] Last Admin: 05/18/21 08:09 Dose: 0.5 mg Famotidine (Famotidine 20 Mg Tab) 40 mg PO DAILY [facility] Last Admin: 05/17/21 11:52 Dose: 40 mg Miscellaneous Medication (Carbidopa/Levodopa [Rytary Er 61.25 Mg-245 Mg Cap]) 0 each PO 0700,1200,1700,2200 [facility] Last Admin: 05/18/21 06:04 Dose: 3 each Olanzapine (Olanzapine 2.5 Mg Tab) 2.5 mg PO QHS [facility] Last Admin: 05/17/21 21:52 Dose: 2.5 mg Trazodone HCl (Trazodone 100 Mg Tab) 100 mg PO QHS [facility] Last Admin: 05/17/21 21:51 Dose: 100 mg Venlafaxine HCl (Venlafaxine 75 Mg Tab) 75 mg PO DAILY [facility] Last Admin: 05/17/21 10:53 Dose: 75 mg Results - Results Labs/Vitals: Laboratory Last Values WBC 8.0 K/mm3 (4.5-11.0) 05/15/21 14:49 RBC 3.49 M/mm3 (3.65-5.03) L 05/15/21 14:49 Hgb 12.4 gm/dl (11.8-15.2) 05/15/21 14:49 Hct 36.0 % (35.5-45.6) 05/15/21 14:49 MCV 103 fl (84-94) H 05/15/21 14:49 MCH 36 pg (28-32) H 05/15/21 14:49 MCHC 34 % (32-34) 05/15/21 14:49 RDW 13.4 % (13.2-15.2) 05/15/21 14:49 Plt Count 292 K/mm3 (140-440) 05/15/21 14:49 Lymph % (Auto) 6.8 % (13.4-35.0) L 05/15/21 14:49 [place] % (Auto) 6.6 % (0.0-7.3) 05/15/21 14:49 Eos % (Auto) 1.4 % (0.0-4.3) 05/15/21 14:49 Baso % (Auto) 0.6 % (0.0-1.8) 05/15/21 14:49 Lymph # (Auto) 0.5 K/mm3 (1.2-5.4) L 05/15/21 14:49 [place] # (Auto) 0.5 K/mm3 (0.0-0.8) 05/15/21 14:49 Eos # (Auto) 0.1 K/mm3 (0.0-0.4) 05/15/21 14:49 Baso # (Auto) 0.0 K/mm3 (0.0-0.1) 05/15/21 14:49 Seg Neutrophils % 84.6 % (40.0-70.0) H 05/15/21 14:49 Seg Neutrophils # 6.8 K/mm3 (1.8-7.7) 05/15/21 14:49 Sodium 140 mmol/L (137-145) 05/15/21 14:49 Potassium 4.7 mmol/L (3.6-5.0) 05/15/21 14:49 Chloride 101.5 mmol/L (98-107) 05/15/21 14:49 Carbon Dioxide 21 mmol/L (22-30) L 05/15/21 14:49 Anion Gap 22 mmol/L 05/15/21 14:49 BUN 45 mg/dL (9-20) H 05/15/21 14:49 Creatinine 1.8 mg/dL (0.8-1.3) H 05/15/21 14:49 Estimated GFR 36 ml/min 05/15/21 14:49 BUN/Creatinine Ratio 25 % 05/15/21 14:49 Glucose 117 mg/dL (75-100) H 05/15/21 14:49 Hemoglobin A1c 4.9 % (4-6) 05/15/21 14:49 Calcium 9.5 mg/dL (8.4-10.2) 05/15/21 14:49 Total Bilirubin 0.30 mg/dL (0.1-1.2) 05/15/21 14:49 AST 19 units/L (5-40) 05/15/21 14:49 ALT 14 units/L (7-56) 05/15/21 14:49 Alkaline Phosphatase 89 units/L (35-129) 05/15/21 14:49 Total Protein 7.5 g/dL (6.3-8.2) 05/15/21 14:49 Albumin 4.3 g/dL (3.9-5) 05/15/21 14:49 Albumin/Globulin Ratio 1.3 % 05/15/21 14:49 Triglycerides 119 mg/dL (2-149) 05/15/21 14:49 Cholesterol 235 mg/dL (50-199) H 05/15/21 14:49 LDL Cholesterol Direct 161 mg/dL (50-130) H 05/15/21 14:49 HDL Cholesterol 61 mg/dL (40-59) H 05/15/21 14:49 Cholesterol/HDL Ratio 3.85 % 05/15/21 14:49 TSH 6.060 mlU/mL (0.270-4.200) H 05/15/21 14:49 Last Vital Signs Temp 98.6 F 05/17/21 20:01 Pulse 74 05/18/21 08:09 Resp 18 05/18/21 08:09 BP 127/71 05/17/21 20:01 Pulse Ox 98 05/17/21 20:01
[2021-05-18] MEDS: FAMOTIDINE 20 MG TAB PO SCH (09:57)
[2021-05-18] MEDS: ASPIRIN EC 81 MG TAB PO SCH (09:58)
[2021-05-18] MEDS: VENLAFAXINE 75 MG TAB PO SCH ×2 (09:58→21:00)
[2021-05-18] MEDS: APIXABAN 2.5 MG TAB PO SCH ×2 (09:59→21:00)
[2021-05-18] MEDS: ACYCLOVIR 200 MG CAP PO SCH ×2 (09:59→20:59)
[2021-05-18] MEDS: traZODone 100 MG TAB PO SCH (21:00)
[2021-05-19] MEDS: BUDESONIDE 0.5 MG/2 ML NEBU IH SCH ×3 (04:04→22:44)
[2021-05-19] MEDS: ARFORMOTEROL 15 MCG/2 ML NEBU IH SCH ×3 (04:04→22:44)
[2021-05-19] MEDS: LEVODOPA PO SCH ×4 (08:31→21:02)
[2021-05-19] MEDS: CARBIDOPA PO SCH ×4 (08:31→21:02)
--- NOTE | 2021-05-19 08:52 | Progress Note ---
Subjective Date of service: 05/19/21 Subjective Comment: 05/19/21: The patient was seen eating breakfast. He states he is doing ok. He reports sleep and appetite as fair. The patient presents with constricted affect. He denies being depressed, rates anxiety as 9/10. He denies any current suicidal/homicidal ideation but admits to auditory hallucinations " voices don't make sense." 05/18/21:The patient was seen this morning. He reports doing well. The patient is tearful and depressed. He reports having auditory hallucinations " I hear it everyday, it's like hearing a show on the TV." 05/17/21: The patient was seen this morning. He asked time it was " I'm ready for breakfast." The patient states sleep and appetite as ok. He denies any current suicidal/homicidal ideation and when asked about AVHs he states " I don't know." 05/16/21: The patient was seen this morning with his head downward and poor eye contact. The patient is confused. He states " I want to take a nap, that's all I want to do." He denies any current suicidal/homicidal ideation and denies hallucinations. per nurse, "pt is alert and oriented to person, irritable, combative, refused medication." REVIEW OF SYSTEMS MENTAL STATUS EXAMINATION Assessment and Plan (1) Dementia with behavioral disturbance Treatment Plan Patient admitted for inpatient psychiatric evaluation, medication adjustment and close monitoring The patient's behavior, mood, sleep and appetite will be closely monitored. Patient enrolled in individual and group therapeutic sessions and encouraged to attend. Patient provided with a safe and structured environment. Patient's physical health needs will be addressed by the Hospitalist. Hospitalist Consulted Labs including CBC, CMP, Lipid profile and Hemoglobin A1C levels ordered for baseline reference Social Assessment will be completed and the Mobile Development Manager will work with patient and family to ensure a suitable and safe disposition Medication adjustment will be made as clinically indicated Continue home meds Start Effexor 75mg po BID Usual Wellness [employer]: - Start Trazodone 50 mg po QHS & 50 mg po QHS PRN between 10 PM & 2 AM for insomnia - Start Melatonin 5 mg po QHS to promote circadian rhythm The patient agreed on the treatment plan, understood the risk, benefit, alternative treatment, potential consequence of no treatment, and gave informed consent. Estimated days: 5 Post hospital care: primary care provider, psychiatric provider Case staffed with Dr. Morocho Medications and Allergies Patient Problems: Current Active Problems Medications and Allergies Medications and Allergies Allergies Allergy/AdvReac Type Severity Reaction Status Date / Time ibuprofen Allergy Unknown Unverified 05/14/21 16:04 Home Medications Medication Instructions Recorded Confirmed Last Taken Type ALPRAZolam [Xanax TAB] 0.25 mg PO UNK PRN 05/15/21 05/15/21 Unknown History Acyclovir [Zovirax Tab] 400 mg PO BID 05/15/21 05/15/21 Unknown History Apixaban [Eliquis] 2.5 mg PO QHS 05/15/21 05/15/21 Unknown History Aspirin [Wolfe Aspirin EC] 81 mg PO DAILY 05/15/21 05/15/21 Unknown History Carbidopa/Levodopa [Rytary ER 1 each PO QID 05/15/21 05/16/21 Unknown History 61.25 mg-245 mg Cap] Famotidine [Pepcid] 40 mg PO DAILY 05/15/21 05/15/21 Unknown History Fluticasone/Salmeterol [Advair 1 each IH UNK 05/15/21 05/15/21 Unknown History 250-50 Diskus] Midodrine [Proamatine] 5 mg PO QDAY 05/15/21 05/15/21 Unknown History OLANzapine [ZyPREXA] 2.5 mg PO QHS 05/15/21 05/15/21 Unknown History Pimavanserin Tartrate [Nuplazid] 34 mg PO UNK 05/15/21 05/15/21 Unknown History Venlafaxine [Effexor] 75 mg PO DAILY 05/15/21 05/15/21 Unknown History amantadine HCL [Amantadine] 100 mg PO QDAY 05/15/21 05/15/21 Unknown History traZODone [Desyrel] 100 mg PO QHS 05/15/21 05/15/21 Unknown History Active Meds: Active Medications Acyclovir (Acyclovir 200 Mg Cap) 400 mg PO BID NIELS Last Admin: 05/18/21 20:59 Dose: 400 mg Alprazolam (Alprazolam 0.25 Mg Tab) 0.25 mg PO QPM PRN PRN Reason: NERVES Last Admin: 05/16/21 21:24 Dose: 0.25 mg Amantadine HCl (Amantadine 100 Mg Cap) 100 mg PO QDAY [facility] Last Admin: 05/18/21 09:58 Dose: 100 mg Apixaban (Apixaban 2.5 Mg Tab) 2.5 mg PO Q12HR [facility]; Protocol Last Admin: 05/18/21 21:00 Dose: 2.5 mg Arformoterol Tartrate (Arformoterol 15 Mcg/2 Ml Nebu) 15 mcg IH Q12HRT [facility] Last Admin: 05/19/21 07:34 Dose: 15 mcg Aspirin (Aspirin Ec 81 Mg Tab) 81 mg PO DAILY [facility] Last Admin: 05/18/21 09:58 Dose: 81 mg Budesonide (Budesonide 0.5 Mg/2 Ml Nebu) 0.5 mg IH Q12HRT [facility] Last Admin: 05/19/21 07:35 Dose: 0.5 mg Famotidine (Famotidine 20 Mg Tab) 40 mg PO DAILY [facility] Last Admin: 05/18/21 09:57 Dose: 40 mg Miscellaneous Medication (Carbidopa/Levodopa [Rytary Er 61.25 Mg-245 Mg Cap]) 0 each PO 0700,1200,1700,2200 [facility] Last Admin: 05/19/21 08:31 Dose: 735 each Olanzapine (Olanzapine 2.5 Mg Tab) 2.5 mg PO QHS [facility] Last Admin: 05/18/21 21:00 Dose: 2.5 mg Trazodone HCl (Trazodone 100 Mg Tab) 100 mg PO QHS [facility] Last Admin: 05/18/21 21:00 Dose: 100 mg Venlafaxine HCl (Venlafaxine 75 Mg Tab) 75 mg PO BID [facility] Last Admin: 05/18/21 21:00 Dose: 75 mg Results - Results Labs/Vitals: Laboratory Last Values WBC 8.0 K/mm3 (4.5-11.0) 05/15/21 14:49 RBC 3.49 M/mm3 (3.65-5.03) L 05/15/21 14:49 Hgb 12.4 gm/dl (11.8-15.2) 05/15/21 14:49 Hct 36.0 % (35.5-45.6) 05/15/21 14:49 MCV 103 fl (84-94) H 05/15/21 14:49 MCH 36 pg (28-32) H 05/15/21 14:49 MCHC 34 % (32-34) 05/15/21 14:49 RDW 13.4 % (13.2-15.2) 05/15/21 14:49 Plt Count 292 K/mm3 (140-440) 05/15/21 14:49 Lymph % (Auto) 6.8 % (13.4-35.0) L 05/15/21 14:49 [place] % (Auto) 6.6 % (0.0-7.3) 05/15/21 14:49 Eos % (Auto) 1.4 % (0.0-4.3) 05/15/21 14:49 Baso % (Auto) 0.6 % (0.0-1.8) 05/15/21 14:49 Lymph # (Auto) 0.5 K/mm3 (1.2-5.4) L 05/15/21 14:49 [place] # (Auto) 0.5 K/mm3 (0.0-0.8) 05/15/21 14:49 Eos # (Auto) 0.1 K/mm3 (0.0-0.4) 05/15/21 14:49 Baso # (Auto) 0.0 K/mm3 (0.0-0.1) 05/15/21 14:49 Seg Neutrophils % 84.6 % (40.0-70.0) H 05/15/21 14:49 Seg Neutrophils # 6.8 K/mm3 (1.8-7.7) 05/15/21 14:49 Sodium 140 mmol/L (137-145) 05/15/21 14:49 Potassium 4.7 mmol/L (3.6-5.0) 05/15/21 14:49 Chloride 101.5 mmol/L (98-107) 05/15/21 14:49 Carbon Dioxide 21 mmol/L (22-30) L 05/15/21 14:49 Anion Gap 22 mmol/L 05/15/21 14:49 BUN 45 mg/dL (9-20) H 05/15/21 14:49 Creatinine 1.8 mg/dL (0.8-1.3) H 05/15/21 14:49 Estimated GFR 36 ml/min 05/15/21 14:49 BUN/Creatinine Ratio 25 % 05/15/21 14:49 Glucose 117 mg/dL (75-100) H 05/15/21 14:49 Hemoglobin A1c 4.9 % (4-6) 05/15/21 14:49 Calcium 9.5 mg/dL (8.4-10.2) 05/15/21 14:49 Total Bilirubin 0.30 mg/dL (0.1-1.2) 05/15/21 14:49 AST 19 units/L (5-40) 05/15/21 14:49 ALT 14 units/L (7-56) 05/15/21 14:49 Alkaline Phosphatase 89 units/L (35-129) 05/15/21 14:49 Total Protein 7.5 g/dL (6.3-8.2) 05/15/21 14:49 Albumin 4.3 g/dL (3.9-5) 05/15/21 14:49 Albumin/Globulin Ratio 1.3 % 05/15/21 14:49 Triglycerides 119 mg/dL (2-149) 05/15/21 14:49 Cholesterol 235 mg/dL (50-199) H 05/15/21 14:49 LDL Cholesterol Direct 161 mg/dL (50-130) H 05/15/21 14:49 HDL Cholesterol 61 mg/dL (40-59) H 05/15/21 14:49 Cholesterol/HDL Ratio 3.85 % 05/15/21 14:49 TSH 6.060 mlU/mL (0.270-4.200) H 05/15/21 14:49 Last Vital Signs Temp 97.5 F L 05/18/21 10:05 Pulse 75 05/19/21 07:35 Resp 18 05/19/21 07:35 BP 151/80 05/18/21 10:05 Pulse Ox 97 05/18/21 10:05
--- NOTE | 2021-05-19 09:39 | Event Note ---
Date: 05/19/21 Communicated with patient's Cristina Edwards @ [phone] and updated her on the current treatment plan. She states that the patient will be assessed for memory care placement this week.
[2021-05-19] MEDS: ASPIRIN EC 81 MG TAB PO SCH (09:40)
[2021-05-19] MEDS: APIXABAN 2.5 MG TAB PO SCH ×2 (09:41→21:03)
[2021-05-19] MEDS: VENLAFAXINE 75 MG TAB PO SCH ×2 (09:41→21:03)
[2021-05-19] MEDS: FAMOTIDINE 20 MG TAB PO SCH (09:41)
[2021-05-19] MEDS: ACYCLOVIR 200 MG CAP PO SCH ×2 (09:42→21:03)
--- NOTE | 2021-05-19 15:24 | Progress Note ---
Assessment and Plan Assessment and plan: --History of atrial fibrillation; Rate controlled, continue current management --Chronic anticoagulation/A. fib Continue Eliquis, supportive care --History of depression; Management per psych team Supportive care --Parkinson's disease; Resume home Parkinson's medications Physical therapy, fall precautions Supportive care --Dementia; Resume home medications, supportive care --DVT prophylaxis; Patient is already on Eliquis --Full CODE STATUS; Closely monitor the patient and adjust the management as needed Continue current management We will follow the patient along with you History Interval history: I have seen and examined the patient in his room Patient's chart and medications reviewed Patient has no new complaints No new new overnight events reported by nursing Vital signs stable Hospitalist Physical - Constitutional Vitals: Temp Pulse Resp BP Pulse Ox 98.4 F 84 18 138/74 99 05/19/21 09:32 05/19/21 09:32 05/19/21 09:32 05/19/21 09:32 05/19/21 09:32 General appearance: Present: no acute distress, well-nourished, other ( patient is cheerful) - EENT Eyes: Present: PERRL, EOM intact - Neck Neck: Present: supple, normal ROM - Respiratory Respiratory effort: normal Respiratory: bilateral: diminished, negative: rales, rhonchi, wheezing - Cardiovascular Rhythm: regular Heart Sounds: Present: S1 & S2 - Extremities Extremities: no ischemia, No edema - Abdominal General gastrointestinal: soft, non-tender, non-distended, normal bowel sounds - Integumentary Integumentary: Present: clear, warm, erythema - Psychiatric Psychiatric: appropriate mood/affect, cooperative, other - Neurologic Neurologic: moves all extremities Results - Labs CBC & Chem 7: 05/15/21 14:49 05/15/21 14:49 Labs: Laboratory Last Values WBC 8.0 K/mm3 (4.5-11.0) 05/15/21 14:49 RBC 3.49 M/mm3 (3.65-5.03) L 05/15/21 14:49 Hgb 12.4 gm/dl (11.8-15.2) 05/15/21 14:49 Hct 36.0 % (35.5-45.6) 05/15/21 14:49 MCV 103 fl (84-94) H 05/15/21 14:49 MCH 36 pg (28-32) H 05/15/21 14:49 MCHC 34 % (32-34) 05/15/21 14:49 RDW 13.4 % (13.2-15.2) 05/15/21 14:49 Plt Count 292 K/mm3 (140-440) 05/15/21 14:49 Lymph % (Auto) 6.8 % (13.4-35.0) L 05/15/21 14:49 [place] % (Auto) 6.6 % (0.0-7.3) 05/15/21 14:49 Eos % (Auto) 1.4 % (0.0-4.3) 05/15/21 14:49 Baso % (Auto) 0.6 % (0.0-1.8) 05/15/21 14:49 Lymph # (Auto) 0.5 K/mm3 (1.2-5.4) L 05/15/21 14:49 [place] # (Auto) 0.5 K/mm3 (0.0-0.8) 05/15/21 14:49 Eos # (Auto) 0.1 K/mm3 (0.0-0.4) 05/15/21 14:49 Baso # (Auto) 0.0 K/mm3 (0.0-0.1) 05/15/21 14:49 Seg Neutrophils % 84.6 % (40.0-70.0) H 05/15/21 14:49 Seg Neutrophils # 6.8 K/mm3 (1.8-7.7) 05/15/21 14:49 Sodium 140 mmol/L (137-145) 05/15/21 14:49 Potassium 4.7 mmol/L (3.6-5.0) 05/15/21 14:49 Chloride 101.5 mmol/L (98-107) 05/15/21 14:49 Carbon Dioxide 21 mmol/L (22-30) L 05/15/21 14:49 Anion Gap 22 mmol/L 05/15/21 14:49 BUN 45 mg/dL (9-20) H 05/15/21 14:49 Creatinine 1.8 mg/dL (0.8-1.3) H 05/15/21 14:49 Estimated GFR 36 ml/min 05/15/21 14:49 BUN/Creatinine Ratio 25 % 05/15/21 14:49 Glucose 117 mg/dL (75-100) H 05/15/21 14:49 Hemoglobin A1c 4.9 % (4-6) 05/15/21 14:49 Calcium 9.5 mg/dL (8.4-10.2) 05/15/21 14:49 Total Bilirubin 0.30 mg/dL (0.1-1.2) 05/15/21 14:49 AST 19 units/L (5-40) 05/15/21 14:49 ALT 14 units/L (7-56) 05/15/21 14:49 Alkaline Phosphatase 89 units/L (35-129) 05/15/21 14:49 Total Protein 7.5 g/dL (6.3-8.2) 05/15/21 14:49 Albumin 4.3 g/dL (3.9-5) 05/15/21 14:49 Albumin/Globulin Ratio 1.3 % 05/15/21 14:49 Triglycerides 119 mg/dL (2-149) 05/15/21 14:49 Cholesterol 235 mg/dL (50-199) H 05/15/21 14:49 LDL Cholesterol Direct 161 mg/dL (50-130) H 05/15/21 14:49 HDL Cholesterol 61 mg/dL (40-59) H 05/15/21 14:49 Cholesterol/HDL Ratio 3.85 % 05/15/21 14:49 TSH 6.060 mlU/mL (0.270-4.200) H 05/15/21 14:49 Hernandez/IV: Voiding Method Diaper Active Medications - Current Medications Current Medications: Generic Name Dose Route Start Last Admin Trade Name Freq PRN Reason Stop Dose Admin Acyclovir 400 mg 05/15/21 10:00 05/19/21 09:42 Acyclovir 200 Mg Cap PO 400 mg BID NIELS Administration Alprazolam 0.25 mg 05/15/21 18:00 05/16/21 21:24 Alprazolam 0.25 Mg Tab PO 0.25 mg QPM PRN Administration NERVES Amantadine HCl 100 mg 05/15/21 10:00 05/19/21 09:40 Amantadine 100 Mg Cap PO 100 mg QDAY NIELS Administration Apixaban 2.5 mg 05/15/21 14:00 05/19/21 09:41 Apixaban 2.5 Mg Tab PO 2.5 mg Q12HR NIELS Administration Protocol Arformoterol Tartrate 15 mcg 05/15/21 12:00 05/19/21 07:34 Arformoterol 15 Mcg/2 Ml Nebu IH 15 mcg Q12HRT NIELS Administration Aspirin 81 mg 05/15/21 10:00 05/19/21 09:40 Aspirin Ec 81 Mg Tab PO 81 mg DAILY NIELS Administration Budesonide 0.5 mg 05/15/21 12:00 05/19/21 07:35 Budesonide 0.5 Mg/2 Ml Nebu IH 0.5 mg Q12HRT NIELS Administration Famotidine 40 mg 05/15/21 10:00 05/19/21 09:41 Famotidine 20 Mg Tab PO 40 mg DAILY NIELS Administration Hydroxyzine Pamoate 25 mg 05/19/21 09:34 Hydroxyzine Pamoate 25 Mg Cap PO Q6H PRN Anxiety Miscellaneous Medication 0 each 05/16/21 17:00 05/19/21 12:50 Carbidopa/Levodopa [Rytary Er 61.25 Mg-245 Mg Cap] PO 490 each 0700,1200,1700,2200 NIELS Administration Olanzapine 2.5 mg 05/15/21 22:00 05/18/21 21:00 Olanzapine 2.5 Mg Tab PO 2.5 mg QHS NIELS Administration Trazodone HCl 100 mg 05/15/21 22:00 05/18/21 21:00 Trazodone 100 Mg Tab PO 100 mg QHS NIELS Administration Venlafaxine HCl 75 mg 05/18/21 10:00 05/19/21 09:41 Venlafaxine 75 Mg Tab PO 75 mg BID NIELS Administration
[2021-05-19] MEDS: traZODone 100 MG TAB PO SCH (21:03)
[2021-05-20] MEDS: hydrOXYzine PAMOATE 25 MG CAP PO PRN (00:34)
[2021-05-20] MEDS: CARBIDOPA PO SCH ×5 (08:20→21:04)
[2021-05-20] MEDS: LEVODOPA PO SCH ×5 (08:20→21:04)
--- NOTE | 2021-05-20 09:50 | Progress Note ---
Subjective Date of service: 05/20/21 Principal diagnosis: Dementia with Behavioral disturbance Subjective Comment: The patient was seen today. He is sleeping. He easily arouses. He is confused. He believes he's "at the front entrance." The patient denies SI/HI. When asked about hallucinations, the patient replies "not this time, but I've been asleep very deeply." 05/19/21: The patient was seen eating breakfast. He states he is doing ok. He reports sleep and appetite as fair. The patient presents with constricted affect. He denies being depressed, rates anxiety as 9/10. He denies any current suicidal/homicidal ideation but admits to auditory hallucinations " voices don't make sense." 05/18/21:The patient was seen this morning. He reports doing well. The patient is tearful and depressed. He reports having auditory hallucinations " I hear it everyday, it's like hearing a show on the TV." 05/17/21: The patient was seen this morning. He asked time it was " I'm ready for breakfast." The patient states sleep and appetite as ok. He denies any current suicidal/homicidal ideation and when asked about AVHs he states " I don't know." 05/16/21: The patient was seen this morning with his head downward and poor eye contact. The patient is confused. He states " I want to take a nap, that's all I want to do." He denies any current suicidal/homicidal ideation and denies hallucinations. per nurse, "pt is alert and oriented to person, irritable, combative, refused medication." REVIEW OF SYSTEMS MENTAL STATUS EXAMINATION Assessment and Plan (1) Dementia with behavioral disturbance Treatment Plan Patient admitted for inpatient psychiatric evaluation, medication adjustment and close monitoring The patient's behavior, mood, sleep and appetite will be closely monitored. Patient enrolled in individual and group therapeutic sessions and encouraged to attend. Patient provided with a safe and structured environment. Patient's physical health needs will be addressed by the Hospitalist. Hospitalist Consulted Labs including CBC, CMP, Lipid profile and Hemoglobin A1C levels ordered for baseline reference Social Assessment will be completed and the Linter Drier Operator will work with patient and family to ensure a suitable and safe disposition Medication adjustment will be made as clinically indicated Continue home meds Start Effexor 75mg po BID Usual Wellness [employer]/Preservation: - Start Trazodone 50 mg po QHS & 50 mg po QHS PRN between 10 PM & 2 AM for insomnia - Start Melatonin 5 mg po QHS to promote circadian rhythm The patient agreed on the treatment plan, understood the risk, benefit, alternative treatment, potential consequence of no treatment, and gave informed consent. Estimated days: 5 Post hospital care: primary care provider, psychiatric provider Case staffed with Dr. Morocho Medications and Allergies Allergies Allergy/AdvReac Type Severity Reaction Status Date / Time ibuprofen Allergy Unknown Unverified 05/14/21 16:04 Home Medications Medication Instructions Recorded Confirmed Last Taken Type ALPRAZolam [Xanax TAB] 0.25 mg PO UNK PRN 05/15/21 05/15/21 Unknown History Acyclovir [Zovirax Tab] 400 mg PO BID 05/15/21 05/15/21 Unknown History Apixaban [Eliquis] 2.5 mg PO QHS 05/15/21 05/15/21 Unknown History Aspirin [Ecru Aspirin EC] 81 mg PO DAILY 05/15/21 05/15/21 Unknown History Carbidopa/Levodopa [Rytary ER 1 each PO QID 05/15/21 05/16/21 Unknown History 61.25 mg-245 mg Cap] Famotidine [Pepcid] 40 mg PO DAILY 05/15/21 05/15/21 Unknown History Fluticasone/Salmeterol [Advair 1 each IH UNK 05/15/21 05/15/21 Unknown History 250-50 Diskus] Midodrine [Proamatine] 5 mg PO QDAY 05/15/21 05/15/21 Unknown History OLANzapine [ZyPREXA] 2.5 mg PO QHS 05/15/21 05/15/21 Unknown History Pimavanserin Tartrate [Nuplazid] 34 mg PO UNK 05/15/21 05/15/21 Unknown History Venlafaxine [Effexor] 75 mg PO DAILY 05/15/21 05/15/21 Unknown History amantadine HCL [Amantadine] 100 mg PO QDAY 05/15/21 05/15/21 Unknown History traZODone [Desyrel] 100 mg PO QHS 05/15/21 05/15/21 Unknown History Active Meds: Active Medications Acyclovir (Acyclovir 200 Mg Cap) 400 mg PO BID [facility] Last Admin: 05/19/21 21:03 Dose: 400 mg Alprazolam (Alprazolam 0.25 Mg Tab) 0.25 mg PO QPM PRN PRN Reason: NERVES Last Admin: 05/16/21 21:24 Dose: 0.25 mg Amantadine HCl (Amantadine 100 Mg Cap) 100 mg PO QDAY [facility] Last Admin: 05/19/21 09:40 Dose: 100 mg Apixaban (Apixaban 2.5 Mg Tab) 2.5 mg PO Q12HR [facility]; Protocol Last Admin: 05/19/21 21:03 Dose: 2.5 mg Arformoterol Tartrate (Arformoterol 15 Mcg/2 Ml Nebu) 15 mcg IH Q12HRT [facility] Last Admin: 05/19/21 22:44 Dose: Not Given Aspirin (Aspirin Ec 81 Mg Tab) 81 mg PO DAILY [facility] Last Admin: 05/19/21 09:40 Dose: 81 mg Budesonide (Budesonide 0.5 Mg/2 Ml Nebu) 0.5 mg IH Q12HRT [facility] Last Admin: 05/19/21 22:44 Dose: Not Given Famotidine (Famotidine 20 Mg Tab) 40 mg PO DAILY [facility] Last Admin: 05/19/21 09:41 Dose: 40 mg Hydroxyzine Pamoate (Hydroxyzine Pamoate 25 Mg Cap) 25 mg PO Q6H PRN PRN Reason: Anxiety Miscellaneous Medication (Carbidopa/Levodopa [Rytary Er 61.25 Mg-245 Mg Cap]) 0 each PO 0700,1200,1700,2200 [facility] Last Admin: 05/19/21 21:02 Dose: 1 each Olanzapine (Olanzapine 2.5 Mg Tab) 2.5 mg PO QHS [facility] Last Admin: 05/19/21 21:03 Dose: 2.5 mg Trazodone HCl (Trazodone 100 Mg Tab) 100 mg PO QHS [facility] Last Admin: 05/19/21 21:03 Dose: 100 mg Venlafaxine HCl (Venlafaxine 75 Mg Tab) 75 mg PO BID [facility] Last Admin: 05/19/21 21:03 Dose: 75 mg Results - Results Labs/Vitals: Laboratory Last Values WBC 8.0 K/mm3 (4.5-11.0) 05/15/21 14:49 RBC 3.49 M/mm3 (3.65-5.03) L 05/15/21 14:49 Hgb 12.4 gm/dl (11.8-15.2) 05/15/21 14:49 Hct 36.0 % (35.5-45.6) 05/15/21 14:49 MCV 103 fl (84-94) H 05/15/21 14:49 MCH 36 pg (28-32) H 05/15/21 14:49 MCHC 34 % (32-34) 05/15/21 14:49 RDW 13.4 % (13.2-15.2) 05/15/21 14:49 Plt Count 292 K/mm3 (140-440) 05/15/21 14:49 Lymph % (Auto) 6.8 % (13.4-35.0) L 05/15/21 14:49 [place] % (Auto) 6.6 % (0.0-7.3) 05/15/21 14:49 Eos % (Auto) 1.4 % (0.0-4.3) 05/15/21 14:49 Baso % (Auto) 0.6 % (0.0-1.8) 05/15/21 14:49 Lymph # (Auto) 0.5 K/mm3 (1.2-5.4) L 05/15/21 14:49 [place] # (Auto) 0.5 K/mm3 (0.0-0.8) 05/15/21 14:49 Eos # (Auto) 0.1 K/mm3 (0.0-0.4) 05/15/21 14:49 Baso # (Auto) 0.0 K/mm3 (0.0-0.1) 05/15/21 14:49 Seg Neutrophils % 84.6 % (40.0-70.0) H 05/15/21 14:49 Seg Neutrophils # 6.8 K/mm3 (1.8-7.7) 05/15/21 14:49 Sodium 140 mmol/L (137-145) 05/15/21 14:49 Potassium 4.7 mmol/L (3.6-5.0) 05/15/21 14:49 Chloride 101.5 mmol/L (98-107) 05/15/21 14:49 Carbon Dioxide 21 mmol/L (22-30) L 05/15/21 14:49 Anion Gap 22 mmol/L 05/15/21 14:49 BUN 45 mg/dL (9-20) H 05/15/21 14:49 Creatinine 1.8 mg/dL (0.8-1.3) H 05/15/21 14:49 Estimated GFR 36 ml/min 05/15/21 14:49 BUN/Creatinine Ratio 25 % 05/15/21 14:49 Glucose 117 mg/dL (75-100) H 05/15/21 14:49 Hemoglobin A1c 4.9 % (4-6) 05/15/21 14:49 Calcium 9.5 mg/dL (8.4-10.2) 05/15/21 14:49 Total Bilirubin 0.30 mg/dL (0.1-1.2) 05/15/21 14:49 AST 19 units/L (5-40) 05/15/21 14:49 ALT 14 units/L (7-56) 05/15/21 14:49 Alkaline Phosphatase 89 units/L (35-129) 05/15/21 14:49 Total Protein 7.5 g/dL (6.3-8.2) 05/15/21 14:49 Albumin 4.3 g/dL (3.9-5) 05/15/21 14:49 Albumin/Globulin Ratio 1.3 % 05/15/21 14:49 Triglycerides 119 mg/dL (2-149) 05/15/21 14:49 Cholesterol 235 mg/dL (50-199) H 05/15/21 14:49 LDL Cholesterol Direct 161 mg/dL (50-130) H 05/15/21 14:49 HDL Cholesterol 61 mg/dL (40-59) H 05/15/21 14:49 Cholesterol/HDL Ratio 3.85 % 05/15/21 14:49 TSH 6.060 mlU/mL (0.270-4.200) H 05/15/21 14:49 Last Vital Signs Temp 98.4 F 05/19/21 09:32 Pulse 80 05/19/21 19:19 Resp 17 05/19/21 19:19 BP 98/58 05/19/21 19:19 Pulse Ox 97 05/19/21 19:19
[2021-05-20] MEDS: BUDESONIDE 0.5 MG/2 ML NEBU IH SCH ×2 (10:20→20:45)
[2021-05-20] MEDS: ARFORMOTEROL 15 MCG/2 ML NEBU IH SCH ×2 (10:20→20:45)
[2021-05-20] MEDS: APIXABAN 2.5 MG TAB PO SCH ×2 (10:55→21:09)
[2021-05-20] MEDS: ASPIRIN EC 81 MG TAB PO SCH (10:55)
[2021-05-20] MEDS: VENLAFAXINE 75 MG TAB PO SCH ×2 (10:55→21:09)
[2021-05-20] MEDS: FAMOTIDINE 20 MG TAB PO SCH (10:56)
[2021-05-20] MEDS: ACYCLOVIR 200 MG CAP PO SCH ×2 (10:56→21:09)
--- NOTE | 2021-05-20 20:34 | Progress Note ---
Assessment and Plan Assessment and plan: --History of atrial fibrillation; Rate controlled, continue current management --Chronic anticoagulation/A. fib Continue Eliquis, supportive care --History of depression; Management per psych team Supportive care --Parkinson's disease; Resume home Parkinson's medications Physical therapy, fall precautions Supportive care --Dementia; Resume home medications, supportive care --DVT prophylaxis; Patient is already on Eliquis --Full CODE STATUS; Closely monitor the patient and adjust the management as needed Continue current management We will follow the patient along with you History Interval history: I have seen and examined the patient today Patient is sleeping in his room easily awakens No new events reported by nursing staff Patient does not have any complaints Vital signs reviewed Hospitalist Physical - Constitutional Vitals: Temp Pulse Resp BP Pulse Ox 98.2 F 84 18 101/62 98 05/20/21 09:12 05/20/21 14:00 05/20/21 10:20 05/20/21 14:00 05/20/21 09:12 General appearance: Present: no acute distress, well-nourished, other (Sleeping easily awakens) - EENT Eyes: Present: PERRL, EOM intact - Neck Neck: Present: supple, normal ROM - Respiratory Respiratory effort: normal Respiratory: bilateral: diminished, negative: rales, rhonchi, wheezing - Cardiovascular Rhythm: regular Heart Sounds: Present: S1 & S2 - Extremities Extremities: no ischemia, No edema - Abdominal General gastrointestinal: soft, non-tender, non-distended, normal bowel sounds - Integumentary Integumentary: Present: clear, warm - Psychiatric Psychiatric: appropriate mood/affect, cooperative - Neurologic Neurologic: CNII-XII intact, moves all extremities Results - Labs CBC & Chem 7: 05/15/21 14:49 05/15/21 14:49 Labs: Laboratory Last Values WBC 8.0 K/mm3 (4.5-11.0) 05/15/21 14:49 RBC 3.49 M/mm3 (3.65-5.03) L 05/15/21 14:49 Hgb 12.4 gm/dl (11.8-15.2) 05/15/21 14:49 Hct 36.0 % (35.5-45.6) 05/15/21 14:49 MCV 103 fl (84-94) H 05/15/21 14:49 MCH 36 pg (28-32) H 05/15/21 14:49 MCHC 34 % (32-34) 05/15/21 14:49 RDW 13.4 % (13.2-15.2) 05/15/21 14:49 Plt Count 292 K/mm3 (140-440) 05/15/21 14:49 Lymph % (Auto) 6.8 % (13.4-35.0) L 05/15/21 14:49 [place] % (Auto) 6.6 % (0.0-7.3) 05/15/21 14:49 Eos % (Auto) 1.4 % (0.0-4.3) 05/15/21 14:49 Baso % (Auto) 0.6 % (0.0-1.8) 05/15/21 14:49 Lymph # (Auto) 0.5 K/mm3 (1.2-5.4) L 05/15/21 14:49 [place] # (Auto) 0.5 K/mm3 (0.0-0.8) 05/15/21 14:49 Eos # (Auto) 0.1 K/mm3 (0.0-0.4) 05/15/21 14:49 Baso # (Auto) 0.0 K/mm3 (0.0-0.1) 05/15/21 14:49 Seg Neutrophils % 84.6 % (40.0-70.0) H 05/15/21 14:49 Seg Neutrophils # 6.8 K/mm3 (1.8-7.7) 05/15/21 14:49 Sodium 140 mmol/L (137-145) 05/15/21 14:49 Potassium 4.7 mmol/L (3.6-5.0) 05/15/21 14:49 Chloride 101.5 mmol/L (98-107) 05/15/21 14:49 Carbon Dioxide 21 mmol/L (22-30) L 05/15/21 14:49 Anion Gap 22 mmol/L 05/15/21 14:49 BUN 45 mg/dL (9-20) H 05/15/21 14:49 Creatinine 1.8 mg/dL (0.8-1.3) H 05/15/21 14:49 Estimated GFR 36 ml/min 05/15/21 14:49 BUN/Creatinine Ratio 25 % 05/15/21 14:49 Glucose 117 mg/dL (75-100) H 05/15/21 14:49 Hemoglobin A1c 4.9 % (4-6) 05/15/21 14:49 Calcium 9.5 mg/dL (8.4-10.2) 05/15/21 14:49 Total Bilirubin 0.30 mg/dL (0.1-1.2) 05/15/21 14:49 AST 19 units/L (5-40) 05/15/21 14:49 ALT 14 units/L (7-56) 05/15/21 14:49 Alkaline Phosphatase 89 units/L (35-129) 05/15/21 14:49 Total Protein 7.5 g/dL (6.3-8.2) 05/15/21 14:49 Albumin 4.3 g/dL (3.9-5) 05/15/21 14:49 Albumin/Globulin Ratio 1.3 % 05/15/21 14:49 Triglycerides 119 mg/dL (2-149) 05/15/21 14:49 Cholesterol 235 mg/dL (50-199) H 05/15/21 14:49 LDL Cholesterol Direct 161 mg/dL (50-130) H 05/15/21 14:49 HDL Cholesterol 61 mg/dL (40-59) H 05/15/21 14:49 Cholesterol/HDL Ratio 3.85 % 05/15/21 14:49 TSH 6.060 mlU/mL (0.270-4.200) H 05/15/21 14:49 Hernandez/IV: Voiding Method Diaper Active Medications - Current Medications Current Medications: Generic Name Dose Route Start Last Admin Trade Name Freq PRN Reason Stop Dose Admin Acyclovir 400 mg 05/15/21 10:00 05/20/21 10:56 Acyclovir 200 Mg Cap PO 400 mg BID NIELS Administration Alprazolam 0.25 mg 05/15/21 18:00 05/16/21 21:24 Alprazolam 0.25 Mg Tab PO 0.25 mg QPM PRN Administration NERVES Amantadine HCl 100 mg 05/15/21 10:00 05/20/21 10:55 Amantadine 100 Mg Cap PO 100 mg QDAY NIELS Administration Apixaban 2.5 mg 05/15/21 14:00 05/20/21 10:55 Apixaban 2.5 Mg Tab PO 2.5 mg Q12HR NIELS Administration Protocol Arformoterol Tartrate 15 mcg 05/15/21 12:00 05/20/21 10:20 Arformoterol 15 Mcg/2 Ml Nebu IH 15 mcg Q12HRT NIELS Administration Aspirin 81 mg 05/15/21 10:00 05/20/21 10:55 Aspirin Ec 81 Mg Tab PO 81 mg DAILY NIELS Administration Budesonide 0.5 mg 05/15/21 12:00 05/20/21 10:20 Budesonide 0.5 Mg/2 Ml Nebu IH 0.5 mg Q12HRT NIELS Administration Famotidine 40 mg 05/15/21 10:00 05/20/21 10:56 Famotidine 20 Mg Tab PO 40 mg DAILY NIELS Administration Hydroxyzine Pamoate 25 mg 05/19/21 09:34 Hydroxyzine Pamoate 25 Mg Cap PO Q6H PRN Anxiety Miscellaneous Medication 0 each 05/16/21 17:00 05/20/21 17:14 Carbidopa/Levodopa [Rytary Er 61.25 Mg-245 Mg Cap] PO 1 each 0700,1200,1700,2200 NIELS Administration Olanzapine 2.5 mg 05/15/21 22:00 05/19/21 21:03 Olanzapine 2.5 Mg Tab PO 2.5 mg QHS NIELS Administration Trazodone HCl 100 mg 05/15/21 22:00 05/19/21 21:03 Trazodone 100 Mg Tab PO 100 mg QHS NIELS Administration Venlafaxine HCl 75 mg 05/18/21 10:00 05/20/21 10:55 Venlafaxine 75 Mg Tab PO 75 mg BID NIELS Administration
[2021-05-20] MEDS: traZODone 100 MG TAB PO SCH (21:05)
[2021-05-21] MEDS: hydrOXYzine PAMOATE 25 MG CAP PO PRN (01:01)
[2021-05-21] MEDS ORDERED: WATER FOR INJ Sterile (PF) 10 ML ONE (01:21)
[2021-05-21] MEDS ORDERED: ZIPRASIDONE MESYLATE 20 MG VIAL IM ONE (01:30)
[2021-05-21] MEDS: CARBIDOPA PO SCH ×5 (06:12→21:39)
[2021-05-21] MEDS: LEVODOPA PO SCH ×5 (06:12→21:39)
--- NOTE | 2021-05-21 08:31 | Progress Note ---
Subjective Date of service: 05/21/21 Principal diagnosis: Dementia with Behavioral disturbance Subjective Comment: Per nurse note: Patient's bed alarm went off. Tech found patient with both legs over railing of bed. He was rocking back and forth to get himself out of bed. When staff attempted to assist him he became angry and tried to kick staff. He was confused and thought his daughter was in his room. Staff tried to reorient patient and help him calm down but he continued to call out and try to get out of bed. This telegraphic typewriter mechanic and tech asked patient how we could help him. He yelled and tried to kick and hit staff with his fists. Staff had to hold his ankles for a short time to keep him from kicking and getting out of bed. Patient yelled that he could walk and that he wanted to kill this telegraphic typewriter mechanic. Each time staff moved away from patient he would begin to try to throw his legs over the railing and rock to get up. Hospitalist was called and order received for Geodon 10 mg IM for agitation. Patient continually threatening staff with harm and threatening to get staff fired. After receiving Geodon the patient slowly relaxed and was able to sleep. Will continue to monitor patient for safety. The patient was seen today. He is lying in bed. He easily arouses. He is confused and shocked to hear that he is in the hospital. He replies "the hospital?" when I inform him. He says he slept well. He denies SI/HI. When asked about any hallucinations, the patient replies "I don't think so." The patient has episodes of combativeness, and agitation as reported by the nursing staff. 05/20 The patient was seen today. He is sleeping. He easily arouses. He is confused. He believes he's "at the front entrance." The patient denies SI/HI. When asked about hallucinations, the patient replies "not this time, but I've been asleep very deeply." 05/19/21: The patient was seen eating breakfast. He states he is doing ok. He reports sleep and appetite as fair. The patient presents with constricted affect. He denies being depressed, rates anxiety as 9/10. He denies any current suicidal/homicidal ideation but admits to auditory hallucinations " voices don't make sense." 05/18/21:The patient was seen this morning. He reports doing well. The patient is tearful and depressed. He reports having auditory hallucinations " I hear it everyday, it's like hearing a show on the TV." 05/17/21: The patient was seen this morning. He asked time it was " I'm ready for breakfast." The patient states sleep and appetite as ok. He denies any current suicidal/homicidal ideation and when asked about AVHs he states " I don't know." 05/16/21: The patient was seen this morning with his head downward and poor eye contact. The patient is confused. He states " I want to take a nap, that's all I want to do." He denies any current suicidal/homicidal ideation and denies hallucinations. per nurse, "pt is alert and oriented to person, irritable, combative, refused medication." REVIEW OF SYSTEMS MENTAL STATUS EXAMINATION Assessment and Plan (1) Dementia with behavioral disturbance Treatment Plan Patient admitted for inpatient psychiatric evaluation, medication adjustment and close monitoring The patient's behavior, mood, sleep and appetite will be closely monitored. Patient enrolled in individual and group therapeutic sessions and encouraged to attend. Patient provided with a safe and structured environment. Patient's physical health needs will be addressed by the Hospitalist. Hospitalist Consulted Labs including CBC, CMP, Lipid profile and Hemoglobin A1C levels ordered for baseline reference Social Assessment will be completed and the Steam Locomotive Firer/Fireman will work with patient and family to ensure a suitable and safe disposition Medication adjustment will be made as clinically indicated Start Valproic Acid 125mg po daily Usual Wellness Sikh/Preservation: - Start Trazodone 50 mg po QHS & 50 mg po QHS PRN between 10 PM & 2 AM for insomnia - Start Melatonin 5 mg po QHS to promote circadian rhythm The patient agreed on the treatment plan, understood the risk, benefit, alternative treatment, potential consequence of no treatment, and gave informed consent. Estimated days: 5 Post hospital care: primary care provider, psychiatric provider Case staffed with Dr. Morocho Medications and Allergies Allergies Allergy/AdvReac Type Severity Reaction Status Date / Time ibuprofen Allergy Unknown Unverified 05/14/21 16:04 Home Medications Medication Instructions Recorded Confirmed Last Taken Type ALPRAZolam [Xanax TAB] 0.25 mg PO UNK PRN 05/15/21 05/15/21 Unknown History Acyclovir [Zovirax Tab] 400 mg PO BID 05/15/21 05/15/21 Unknown History Apixaban [Eliquis] 2.5 mg PO QHS 05/15/21 05/15/21 Unknown History Aspirin [[place] Aspirin EC] 81 mg PO DAILY 05/15/21 05/15/21 Unknown History Carbidopa/Levodopa [Rytary ER 1 each PO QID 05/15/21 05/16/21 Unknown History 61.25 mg-245 mg Cap] Famotidine [Pepcid] 40 mg PO DAILY 05/15/21 05/15/21 Unknown History Fluticasone/Salmeterol [Advair 1 each IH UNK 05/15/21 05/15/21 Unknown History 250-50 Diskus] Midodrine [Proamatine] 5 mg PO QDAY 05/15/21 05/15/21 Unknown History OLANzapine [ZyPREXA] 2.5 mg PO QHS 05/15/21 05/15/21 Unknown History Pimavanserin Tartrate [Nuplazid] 34 mg PO UNK 05/15/21 05/15/21 Unknown History Venlafaxine [Effexor] 75 mg PO DAILY 05/15/21 05/15/21 Unknown History amantadine HCL [Amantadine] 100 mg PO QDAY 05/15/21 05/15/21 Unknown History traZODone [Desyrel] 100 mg PO QHS 05/15/21 05/15/21 Unknown History Active Meds: Active Medications Acyclovir (Acyclovir 200 Mg Cap) 400 mg PO BID [facility] Last Admin: 05/20/21 21:09 Dose: 400 mg Alprazolam (Alprazolam 0.25 Mg Tab) 0.25 mg PO QPM PRN PRN Reason: NERVES Last Admin: 05/16/21 21:24 Dose: 0.25 mg Amantadine HCl (Amantadine 100 Mg Cap) 100 mg PO QDAY [facility] Last Admin: 05/20/21 10:55 Dose: 100 mg Apixaban (Apixaban 2.5 Mg Tab) 2.5 mg PO Q12HR [facility]; Protocol Last Admin: 05/20/21 21:09 Dose: 2.5 mg Arformoterol Tartrate (Arformoterol 15 Mcg/2 Ml Nebu) 15 mcg IH Q12HRT [facility] Last Admin: 05/20/21 20:45 Dose: 15 mcg Aspirin (Aspirin Ec 81 Mg Tab) 81 mg PO DAILY [facility] Last Admin: 05/20/21 10:55 Dose: 81 mg Budesonide (Budesonide 0.5 Mg/2 Ml Nebu) 0.5 mg IH Q12HRT [facility] Last Admin: 05/20/21 20:45 Dose: 0.5 mg Famotidine (Famotidine 20 Mg Tab) 20 mg PO DAILY [facility] Hydroxyzine Pamoate (Hydroxyzine Pamoate 25 Mg Cap) 25 mg PO Q6H PRN PRN Reason: Anxiety Miscellaneous Medication (Carbidopa/Levodopa [Rytary Er 61.25 Mg-245 Mg Cap]) 0 each PO 0700,1200,1700,2200 [facility] Last Admin: 05/21/21 07:58 Dose: 3 each Olanzapine (Olanzapine 2.5 Mg Tab) 2.5 mg PO QHS [facility] Last Admin: 05/20/21 21:10 Dose: 2.5 mg Trazodone HCl (Trazodone 100 Mg Tab) 100 mg PO QHS [facility] Last Admin: 05/20/21 21:05 Dose: 100 mg Venlafaxine HCl (Venlafaxine 75 Mg Tab) 75 mg PO BID [facility] Last Admin: 05/20/21 21:09 Dose: 75 mg Results - Results Labs/Vitals: Laboratory Last Values WBC 8.0 K/mm3 (4.5-11.0) 05/15/21 14:49 RBC 3.49 M/mm3 (3.65-5.03) L 05/15/21 14:49 Hgb 12.4 gm/dl (11.8-15.2) 05/15/21 14:49 Hct 36.0 % (35.5-45.6) 05/15/21 14:49 MCV 103 fl (84-94) H 05/15/21 14:49 MCH 36 pg (28-32) H 05/15/21 14:49 MCHC 34 % (32-34) 05/15/21 14:49 RDW 13.4 % (13.2-15.2) 05/15/21 14:49 Plt Count 292 K/mm3 (140-440) 05/15/21 14:49 Lymph % (Auto) 6.8 % (13.4-35.0) L 05/15/21 14:49 [place] % (Auto) 6.6 % (0.0-7.3) 05/15/21 14:49 Eos % (Auto) 1.4 % (0.0-4.3) 05/15/21 14:49 Baso % (Auto) 0.6 % (0.0-1.8) 05/15/21 14:49 Lymph # (Auto) 0.5 K/mm3 (1.2-5.4) L 05/15/21 14:49 [place] # (Auto) 0.5 K/mm3 (0.0-0.8) 05/15/21 14:49 Eos # (Auto) 0.1 K/mm3 (0.0-0.4) 05/15/21 14:49 Baso # (Auto) 0.0 K/mm3 (0.0-0.1) 05/15/21 14:49 Seg Neutrophils % 84.6 % (40.0-70.0) H 05/15/21 14:49 Seg Neutrophils # 6.8 K/mm3 (1.8-7.7) 05/15/21 14:49 Sodium 140 mmol/L (137-145) 05/15/21 14:49 Potassium 4.7 mmol/L (3.6-5.0) 05/15/21 14:49 Chloride 101.5 mmol/L (98-107) 05/15/21 14:49 Carbon Dioxide 21 mmol/L (22-30) L 05/15/21 14:49 Anion Gap 22 mmol/L 05/15/21 14:49 BUN 45 mg/dL (9-20) H 05/15/21 14:49 Creatinine 1.8 mg/dL (0.8-1.3) H 05/15/21 14:49 Estimated GFR 36 ml/min 05/15/21 14:49 BUN/Creatinine Ratio 25 % 05/15/21 14:49 Glucose 117 mg/dL (75-100) H 05/15/21 14:49 Hemoglobin A1c 4.9 % (4-6) 05/15/21 14:49 Calcium 9.5 mg/dL (8.4-10.2) 05/15/21 14:49 Total Bilirubin 0.30 mg/dL (0.1-1.2) 05/15/21 14:49 AST 19 units/L (5-40) 05/15/21 14:49 ALT 14 units/L (7-56) 05/15/21 14:49 Alkaline Phosphatase 89 units/L (35-129) 05/15/21 14:49 Total Protein 7.5 g/dL (6.3-8.2) 05/15/21 14:49 Albumin 4.3 g/dL (3.9-5) 05/15/21 14:49 Albumin/Globulin Ratio 1.3 % 05/15/21 14:49 Triglycerides 119 mg/dL (2-149) 05/15/21 14:49 Cholesterol 235 mg/dL (50-199) H 05/15/21 14:49 LDL Cholesterol Direct 161 mg/dL (50-130) H 05/15/21 14:49 HDL Cholesterol 61 mg/dL (40-59) H 05/15/21 14:49 Cholesterol/HDL Ratio 3.85 % 05/15/21 14:49 TSH 6.060 mlU/mL (0.270-4.200) H 05/15/21 14:49 Last Vital Signs Temp 98.4 F 05/20/21 20:16 Pulse 68 05/20/21 20:45 Resp 16 05/20/21 20:45 BP 137/80 05/20/21 20:16 Pulse Ox 100 05/20/21 20:16
[2021-05-21] MEDS: ARFORMOTEROL 15 MCG/2 ML NEBU IH SCH ×2 (08:55→19:58)
[2021-05-21] MEDS: BUDESONIDE 0.5 MG/2 ML NEBU IH SCH ×2 (08:55→19:58)
[2021-05-21] MEDS: ASPIRIN EC 81 MG TAB PO SCH (09:57)
[2021-05-21] MEDS: APIXABAN 2.5 MG TAB PO SCH ×2 (09:57→21:30)
[2021-05-21] MEDS: VENLAFAXINE 75 MG TAB PO SCH ×2 (09:57→21:30)
[2021-05-21] MEDS: FAMOTIDINE 20 MG TAB PO SCH (09:58)
[2021-05-21] MEDS: ACYCLOVIR 200 MG CAP PO SCH ×2 (09:58→21:30)
[2021-05-21] MEDS: VALPROIC ACID 250 MG/5 ML ORAL LIQD PO SCH (10:23)
[2021-05-21] MEDS: traZODone 100 MG TAB PO SCH (21:30)
[2021-05-22] MEDS: CARBIDOPA PO SCH ×5 (08:00→21:13)
[2021-05-22] MEDS: LEVODOPA PO SCH ×5 (08:00→21:13)
[2021-05-22] MEDS: ARFORMOTEROL 15 MCG/2 ML NEBU IH SCH ×2 (08:20→21:46)
[2021-05-22] MEDS: BUDESONIDE 0.5 MG/2 ML NEBU IH SCH ×2 (08:20→21:46)
--- NOTE | 2021-05-22 09:04 | Progress Note ---
Subjective Date of service: 05/22/21 Principal diagnosis: Dementia with Behavioral disturbance Subjective Comment: 05/22 The patient was seen today. He is sleeping, but easily arouses. He says he's cold. I pulled the blanket up on the patient. He thanks me. He says he slept well. He denies SI/HI. The patient says "I'm ready to go home." 05/21 Per nurse note: Patient's bed alarm went off. Tech found patient with both legs over railing of bed. He was rocking back and forth to get himself out of bed. When staff attempted to assist him he became angry and tried to kick staff. He was confused and thought his daughter was in his room. Staff tried to reorient patient and help him calm down but he continued to call out and try to get out of bed. This communications writer and tech asked patient how we could help him. He yelled and tried to kick and hit staff with his fists. Staff had to hold his ankles for a short time to keep him from kicking and getting out of bed. Patient yelled that he could walk and that he wanted to kill this communications writer. Each time staff moved away from patient he would begin to try to throw his legs over the railing and rock to get up. Hospitalist was called and order received for Geodon 10 mg IM for agitation. Patient continually threatening staff with harm and threatening to get staff fired. After receiving Geodon the patient slowly relaxed and was able to sleep. Will continue to monitor patient for safety. The patient was seen today. He is lying in bed. He easily arouses. He is confused and shocked to hear that he is in the hospital. He replies "the hospital?" when I inform him. He says he slept well. He denies SI/HI. When asked about any hallucinations, the patient replies "I don't think so." The patient has episodes of combativeness, and agitation as reported by the nursing staff. 05/20 The patient was seen today. He is sleeping. He easily arouses. He is confused. He believes he's "at the front entrance." The patient denies SI/HI. When asked about hallucinations, the patient replies "not this time, but I've been asleep very deeply." 05/19/21: The patient was seen eating breakfast. He states he is doing ok. He reports sleep and appetite as fair. The patient presents with constricted affect. He denies being depressed, rates anxiety as 9/10. He denies any current suicidal/homicidal ideation but admits to auditory hallucinations " voices don't make sense." 05/18/21:The patient was seen this morning. He reports doing well. The patient is tearful and depressed. He reports having auditory hallucinations " I hear it everyday, it's like hearing a show on the TV." 05/17/21: The patient was seen this morning. He asked time it was " I'm ready for breakfast." The patient states sleep and appetite as ok. He denies any curre nt suicidal/homicidal ideation and when asked about AVHs he states " I don't know." 05/16/21: The patient was seen this morning with his head downward and poor eye contact. The patient is confused. He states " I want to take a nap, that's all I want to do." He denies any current suicidal/homicidal ideation and denies maribell lucinations. per nurse, "pt is alert and oriented to person, irritable, combative, refused medication." REVIEW OF SYSTEMS MENTAL STATUS EXAMINATION Assessment and Plan (1) Dementia with behavioral disturbance Treatment Plan Patient admitted for inpatient psychiatric evaluation, medication adjustment and close monitoring The patient's behavior, mood, sleep and appetite will be closely monitored. Patient enrolled in individual and group therapeutic sessions and encouraged to attend. Patient provided with a safe and structured environment. Patient's physical health needs will be addressed by the Hospitalist. Hospitalist Consulted Labs including CBC, CMP, Lipid profile and Hemoglobin A1C levels ordered for baseline reference Social Assessment will be completed and the Scrummaster will work with patient and family to ensure a suitable and safe disposition Medication adjustment will be made as clinically indicated Start Valproic Acid 125mg po daily Usual Wellness Muslim/Preservation: - Start Trazodone 50 mg po QHS & 50 mg po QHS PRN between 10 PM & 2 AM for insomnia - Start Melatonin 5 mg po QHS to promote circadian rhythm The patient agreed on the treatment plan, understood the risk, benefit, alternative treatment, potential consequence of no treatment, and gave informed consent. Estimated days: 5 Post hospital care: primary care provider, psychiatric provider Case staffed with Dr. Rashawn Medications and Allergies Allergies Allergy/AdvReac Type Severity Reaction Status Date / Time ibuprofen Allergy Unknown Unverified 05/14/21 16:04 Home Medications Medication Instructions Recorded Confirmed Last Taken Type ALPRAZolam [Xanax TAB] 0.25 mg PO UNK PRN 05/15/21 05/15/21 Unknown History Acyclovir [Zovirax Tab] 400 mg PO BID 05/15/21 05/15/21 Unknown History Apixaban [Eliquis] 2.5 mg PO QHS 05/15/21 05/15/21 Unknown History Aspirin [[place] Aspirin EC] 81 mg PO DAILY 05/15/21 05/15/21 Unknown History Carbidopa/Levodopa [Rytary ER 1 each PO QID 05/15/21 05/16/21 Unknown History 61.25 mg-245 mg Cap] Famotidine [Pepcid] 40 mg PO DAILY 05/15/21 05/15/21 Unknown History Fluticasone/Salmeterol [Advair 1 each IH UNK 05/15/21 05/15/21 Unknown History 250-50 Diskus] Midodrine [Proamatine] 5 mg PO QDAY 05/15/21 05/15/21 Unknown History OLANzapine [ZyPREXA] 2.5 mg PO QHS 05/15/21 05/15/21 Unknown History Pimavanserin Tartrate [Nuplazid] 34 mg PO UNK 05/15/21 05/15/21 Unknown History Venlafaxine [Effexor] 75 mg PO DAILY 05/15/21 05/15/21 Unknown History amantadine HCL [Amantadine] 100 mg PO QDAY 05/15/21 05/15/21 Unknown History traZODone [Desyrel] 100 mg PO QHS 05/15/21 05/15/21 Unknown History Active Meds: Active Medications Acyclovir (Acyclovir 200 Mg Cap) 400 mg PO BID [facility] Last Admin: 05/21/21 21:30 Dose: 400 mg Alprazolam (Alprazolam 0.25 Mg Tab) 0.25 mg PO QPM PRN PRN Reason: NERVES Last Admin: 05/16/21 21:24 Dose: 0.25 mg Amantadine HCl (Amantadine 100 Mg Cap) 100 mg PO QDAY [facility] Last Admin: 05/21/21 09:57 Dose: 100 mg Apixaban (Apixaban 2.5 Mg Tab) 2.5 mg PO Q12HR [facility]; Protocol Last Admin: 05/21/21 21:30 Dose: 2.5 mg Arformoterol Tartrate (Arformoterol 15 Mcg/2 Ml Nebu) 15 mcg IH Q12HRT [facility] Last Admin: 05/22/21 08:20 Dose: 15 mcg Aspirin (Aspirin Ec 81 Mg Tab) 81 mg PO DAILY [facility] Last Admin: 05/21/21 09:57 Dose: 81 mg Budesonide (Budesonide 0.5 Mg/2 Ml Nebu) 0.5 mg IH Q12HRT [facility] Last Admin: 05/22/21 08:20 Dose: 0.5 mg Famotidine (Famotidine 20 Mg Tab) 20 mg PO DAILY [facility] Last Admin: 05/21/21 09:58 Dose: 20 mg Hydroxyzine Pamoate (Hydroxyzine Pamoate 25 Mg Cap) 25 mg PO Q6H PRN PRN Reason: Anxiety Miscellaneous Medication (Carbidopa/Levodopa [Rytary Er 61.25 Mg-245 Mg Cap]) 0 each PO 0700,1200,1700,2200 [facility] Last Admin: 05/21/21 21:39 Dose: 1 each Olanzapine (Olanzapine 2.5 Mg Tab) 2.5 mg PO QHS [facility] Last Admin: 05/21/21 21:31 Dose: 2.5 mg Trazodone HCl (Trazodone 100 Mg Tab) 100 mg PO QHS [facility] Last Admin: 05/21/21 21:30 Dose: 100 mg Valproic Acid (Valproic Acid 250 Mg/5 Ml Oral Liqd) 125 mg PO DAILY [facility] Last Admin: 05/21/21 10:23 Dose: 125 mg Venlafaxine HCl (Venlafaxine 75 Mg Tab) 75 mg PO BID [facility] Last Admin: 05/21/21 21:30 Dose: 75 mg Results - Results Labs/Vitals: Laboratory Last Values WBC 8.0 K/mm3 (4.5-11.0) 05/15/21 14:49 RBC 3.49 M/mm3 (3.65-5.03) L 05/15/21 14:49 Hgb 12.4 gm/dl (11.8-15.2) 05/15/21 14:49 Hct 36.0 % (35.5-45.6) 05/15/21 14:49 MCV 103 fl (84-94) H 05/15/21 14:49 MCH 36 pg (28-32) H 05/15/21 14:49 MCHC 34 % (32-34) 05/15/21 14:49 RDW 13.4 % (13.2-15.2) 05/15/21 14:49 Plt Count 292 K/mm3 (140-440) 05/15/21 14:49 Lymph % (Auto) 6.8 % (13.4-35.0) L 05/15/21 14:49 [place] % (Auto) 6.6 % (0.0-7.3) 05/15/21 14:49 Eos % (Auto) 1.4 % (0.0-4.3) 05/15/21 14:49 Baso % (Auto) 0.6 % (0.0-1.8) 05/15/21 14:49 Lymph # (Auto) 0.5 K/mm3 (1.2-5.4) L 05/15/21 14:49 [place] # (Auto) 0.5 K/mm3 (0.0-0.8) 05/15/21 14:49 Eos # (Auto) 0.1 K/mm3 (0.0-0.4) 05/15/21 14:49 Baso # (Auto) 0.0 K/mm3 (0.0-0.1) 05/15/21 14:49 Seg Neutrophils % 84.6 % (40.0-70.0) H 05/15/21 14:49 Seg Neutrophils # 6.8 K/mm3 (1.8-7.7) 05/15/21 14:49 Sodium 140 mmol/L (137-145) 05/15/21 14:49 Potassium 4.7 mmol/L (3.6-5.0) 05/15/21 14:49 Chloride 101.5 mmol/L (98-107) 05/15/21 14:49 Carbon Dioxide 21 mmol/L (22-30) L 05/15/21 14:49 Anion Gap 22 mmol/L 05/15/21 14:49 BUN 45 mg/dL (9-20) H 05/15/21 14:49 Creatinine 1.8 mg/dL (0.8-1.3) H 05/15/21 14:49 Estimated GFR 36 ml/min 05/15/21 14:49 BUN/Creatinine Ratio 25 % 05/15/21 14:49 Glucose 117 mg/dL (75-100) H 05/15/21 14:49 Hemoglobin A1c 4.9 % (4-6) 05/15/21 14:49 Calcium 9.5 mg/dL (8.4-10.2) 05/15/21 14:49 Total Bilirubin 0.30 mg/dL (0.1-1.2) 05/15/21 14:49 AST 19 units/L (5-40) 05/15/21 14:49 ALT 14 units/L (7-56) 05/15/21 14:49 Alkaline Phosphatase 89 units/L (35-129) 05/15/21 14:49 Total Protein 7.5 g/dL (6.3-8.2) 05/15/21 14:49 Albumin 4.3 g/dL (3.9-5) 05/15/21 14:49 Albumin/Globulin Ratio 1.3 % 05/15/21 14:49 Triglycerides 119 mg/dL (2-149) 05/15/21 14:49 Cholesterol 235 mg/dL (50-199) H 05/15/21 14:49 LDL Cholesterol Direct 161 mg/dL (50-130) H 05/15/21 14:49 HDL Cholesterol 61 mg/dL (40-59) H 05/15/21 14:49 Cholesterol/HDL Ratio 3.85 % 05/15/21 14:49 TSH 6.060 mlU/mL (0.270-4.200) H 05/15/21 14:49 Last Vital Signs Temp 98.4 F 05/21/21 19:42 Pulse 72 05/22/21 08:30 Resp 16 05/22/21 08:30 BP 157/80 05/21/21 19:42 Pulse Ox 99 05/21/21 19:42
[2021-05-22] MEDS: ACYCLOVIR 200 MG CAP PO SCH ×2 (10:59→21:14)
[2021-05-22] MEDS: ASPIRIN EC 81 MG TAB PO SCH (10:59)
[2021-05-22] MEDS: APIXABAN 2.5 MG TAB PO SCH ×2 (10:59→21:14)
[2021-05-22] MEDS: FAMOTIDINE 20 MG TAB PO SCH (11:00)
[2021-05-22] MEDS: VALPROIC ACID 250 MG/5 ML ORAL LIQD PO SCH (11:00)
[2021-05-22] MEDS: VENLAFAXINE 75 MG TAB PO SCH ×2 (11:00→21:14)
--- NOTE | 2021-05-22 12:34 | Event Note ---
Date: 05/22/21 Spoke with the patient's spouse concerning treatment plan, progress and discharge planning. She says the patient has been combative at home and del usional. The patient is awaiting placement.
--- NOTE | 2021-05-22 16:36 | Progress Note ---
Assessment and Plan - Patient Problems (1) Atrial fibrillation Current Visit: Yes Status: Acute Plan to address problem: Continue therapeutic anticoagulation, supportive care, outpatient primary care physician follow-up. (2) Vascular dementia with behavior disturbance Current Visit: Yes Status: Acute Plan to address problem: Verbal prompting, verbal redirection, benzodiazepine therapy as clinical indicated. (3) Cerebral atherosclerosis Current Visit: Yes Status: Acute Plan to address problem: Risk factor reduction, antiplatelet therapy as clinically indicated, supportive care. Continue medical management. (4) Malnutrition Current Visit: Yes Status: Acute Qualifiers: Protein-calorie malnutrition severity: moderate Plan to address problem: Increase protein intake, dietary supplementation. (5) Advance care planning Current Visit: Yes Status: Acute Plan to address problem: Disease education done, care plan discussed, diagnoses discussed, prognosis discussed, patient is full code. Patient knowledges understanding and agreed w ith care plan, +30 minutes. History Interval history: 80 YO Male with Vascular Dementia with Behavioral Disturbance, Cerebral Atherosclerosis, HTN, Atrial Fib on therapeutic anticoagulation, Malnutrition, admitted to [facility] for psychiatric stabilization. Consult placed by Dr. Gr for medical management. The patient was seen and evaluated in the recreation room. No reported nursing events. Patient is at baseline level of cognition and function. Hospitalist Physical - Constitutional Vitals: Temp Pulse Resp BP Pulse Ox 98.4 F 72 16 157/80 99 05/21/21 19:42 05/22/21 08:30 05/22/21 08:30 05/21/21 19:42 05/21/21 19:42 General appearance: Present: no acute distress, well-nourished, other ( patient is cheerful) - EENT Eyes: Present: PERRL ENT: hearing decreased - Neck Neck: Present: supple - Respiratory Respiratory effort: normal Respiratory: bilateral: CTA - Cardiovascular Rhythm: irregularly irregular - Extremities Extremities: no ischemia Peripheral Pulses: within normal limits - Abdominal General gastrointestinal: soft, non-tender, non-distended - Integumentary Integumentary: Present: clear, dry - Psychiatric Psychiatric: cooperative - Neurologic Neurologic: CNII-XII intact Results - Labs CBC & Chem 7: 05/15/21 14:49 05/15/21 14:49 Labs: Laboratory Last Values WBC 8.0 K/mm3 (4.5-11.0) 05/15/21 14:49 RBC 3.49 M/mm3 (3.65-5.03) L 05/15/21 14:49 Hgb 12.4 gm/dl (11.8-15.2) 05/15/21 14:49 Hct 36.0 % (35.5-45.6) 05/15/21 14:49 MCV 103 fl (84-94) H 05/15/21 14:49 MCH 36 pg (28-32) H 05/15/21 14:49 MCHC 34 % (32-34) 05/15/21 14:49 RDW 13.4 % (13.2-15.2) 05/15/21 14:49 Plt Count 292 K/mm3 (140-440) 05/15/21 14:49 Lymph % (Auto) 6.8 % (13.4-35.0) L 05/15/21 14:49 [place] % (Auto) 6.6 % (0.0-7.3) 05/15/21 14:49 Eos % (Auto) 1.4 % (0.0-4.3) 05/15/21 14:49 Baso % (Auto) 0.6 % (0.0-1.8) 05/15/21 14:49 Lymph # (Auto) 0.5 K/mm3 (1.2-5.4) L 05/15/21 14:49 [place] # (Auto) 0.5 K/mm3 (0.0-0.8) 05/15/21 14:49 Eos # (Auto) 0.1 K/mm3 (0.0-0.4) 05/15/21 14:49 Baso # (Auto) 0.0 K/mm3 (0.0-0.1) 05/15/21 14:49 Seg Neutrophils % 84.6 % (40.0-70.0) H 05/15/21 14:49 Seg Neutrophils # 6.8 K/mm3 (1.8-7.7) 05/15/21 14:49 Sodium 140 mmol/L (137-145) 05/15/21 14:49 Potassium 4.7 mmol/L (3.6-5.0) 05/15/21 14:49 Chloride 101.5 mmol/L (98-107) 05/15/21 14:49 Carbon Dioxide 21 mmol/L (22-30) L 05/15/21 14:49 Anion Gap 22 mmol/L 05/15/21 14:49 BUN 45 mg/dL (9-20) H 05/15/21 14:49 Creatinine 1.8 mg/dL (0.8-1.3) H 05/15/21 14:49 Estimated GFR 36 ml/min 05/15/21 14:49 BUN/Creatinine Ratio 25 % 05/15/21 14:49 Glucose 117 mg/dL (75-100) H 05/15/21 14:49 Hemoglobin A1c 4.9 % (4-6) 05/15/21 14:49 Calcium 9.5 mg/dL (8.4-10.2) 05/15/21 14:49 Total Bilirubin 0.30 mg/dL (0.1-1.2) 05/15/21 14:49 AST 19 units/L (5-40) 05/15/21 14:49 ALT 14 units/L (7-56) 05/15/21 14:49 Alkaline Phosphatase 89 units/L (35-129) 05/15/21 14:49 Total Protein 7.5 g/dL (6.3-8.2) 05/15/21 14:49 Albumin 4.3 g/dL (3.9-5) 05/15/21 14:49 Albumin/Globulin Ratio 1.3 % 05/15/21 14:49 Triglycerides 119 mg/dL (2-149) 05/15/21 14:49 Cholesterol 235 mg/dL (50-199) H 05/15/21 14:49 LDL Cholesterol Direct 161 mg/dL (50-130) H 05/15/21 14:49 HDL Cholesterol 61 mg/dL (40-59) H 05/15/21 14:49 Cholesterol/HDL Ratio 3.85 % 05/15/21 14:49 TSH 6.060 mlU/mL (0.270-4.200) H 05/15/21 14:49 Hernandez/IV: Voiding Method Diaper Active Medications - Current Medications Current Medications: Generic Name Dose Route Start Last Admin Trade Name Freq PRN Reason Stop Dose Admin Acyclovir 400 mg 05/15/21 10:00 05/22/21 10:59 Acyclovir 200 Mg Cap PO 400 mg BID NIELS Administration Alprazolam 0.25 mg 05/15/21 18:00 05/16/21 21:24 Alprazolam 0.25 Mg Tab PO 0.25 mg QPM PRN Administration NERVES Amantadine HCl 100 mg 05/15/21 10:00 05/22/21 11:00 Amantadine 100 Mg Cap PO 100 mg QDAY NIELS Administration Apixaban 2.5 mg 05/15/21 14:00 05/22/21 10:59 Apixaban 2.5 Mg Tab PO 2.5 mg Q12HR NIELS Administration Protocol Arformoterol Tartrate 15 mcg 05/15/21 12:00 05/22/21 08:20 Arformoterol 15 Mcg/2 Ml Nebu IH 15 mcg Q12HRT NIELS Administration Aspirin 81 mg 05/15/21 10:00 05/22/21 10:59 Aspirin Ec 81 Mg Tab PO 81 mg DAILY NIELS Administration Budesonide 0.5 mg 05/15/21 12:00 05/22/21 08:20 Budesonide 0.5 Mg/2 Ml Nebu IH 0.5 mg Q12HRT NIELS Administration Famotidine 20 mg 05/21/21 10:00 05/22/21 11:00 Famotidine 20 Mg Tab PO 20 mg DAILY NIELS Administration Hydroxyzine Pamoate 25 mg 05/19/21 09:34 Hydroxyzine Pamoate 25 Mg Cap PO Q6H PRN Anxiety Miscellaneous Medication 0 each 05/16/21 17:00 05/22/21 14:58 Carbidopa/Levodopa [Rytary Er 61.25 Mg-245 Mg Cap] PO Not Given 0700,1200,1700,2200 NIELS Olanzapine 2.5 mg 05/15/21 22:00 05/21/21 21:31 Olanzapine 2.5 Mg Tab PO 2.5 mg QHS NIELS Administration Trazodone HCl 100 mg 05/15/21 22:00 05/21/21 21:30 Trazodone 100 Mg Tab PO 100 mg QHS NIELS Administration Valproic Acid 125 mg 05/21/21 10:00 05/22/21 11:00 Valproic Acid 250 Mg/5 Ml Oral Liqd PO 125 mg DAILY [facility]S Administration Venlafaxine HCl 75 mg 05/18/21 10:00 05/22/21 11:00 Venlafaxine 75 Mg Tab PO 75 mg BID NIELS Administration
[2021-05-22] MEDS: traZODone 100 MG TAB PO SCH (21:14)
[2021-05-23] MEDS: ARFORMOTEROL 15 MCG/2 ML NEBU IH SCH ×2 (07:48→20:15)
[2021-05-23] MEDS: BUDESONIDE 0.5 MG/2 ML NEBU IH SCH ×2 (07:48→20:15)
--- NOTE | 2021-05-23 07:56 | Progress Note ---
Subjective Date of service: 05/23/21 Principal diagnosis: Dementia with Behavioral disturbance Subjective Comment: 05/23 The patient was seen today. He is sleeping. He is confused, but pleasant. He says he slept well. He denies SI/HI. When asking about hallucinations, he says "I don't think I do." According to the spouse, the patient hallucinates a lot and is very delusional. 05/22 The patient was seen today. He is sleeping, but easily arouses. He says he's cold. I pulled the blanket up on the patient. He thanks me. He says he slept well. He denies SI/HI. The patient says "I'm ready to go home." 05/21 Per nurse note: Patient's bed alarm went off. Tech found patient with both legs over railing of bed. He was rocking back and forth to get himself out of bed. When staff attempted to assist him he became angry and tried to kick staff. He was confused and thought his daughter was in his room. Staff tried to reorient patient and help him calm down but he continued to call out and try to get out of bed. This ticket writer and tech asked patient how we could help him. He yelled and tried to kick and hit staff with his fists. Staff had to hold his ankles for a short time to keep him from kicking and getting out of bed. Patient yelled that he could walk and that he wanted to kill this ticket writer. Each time staff moved away from patient he would begin to try to throw his legs over the railing and rock to get up. Hospitalist was called and order received for Geodon 10 mg IM for agitation. Patient continually threatening staff with harm and threatening to get staff fired. After receiving Geodon the patient slowly relaxed and was able to sleep. Will continue to monitor patient for safety. The patient was seen today. He is lying in bed. He easily arouses. He is confused and shocked to hear that he is in the hospital. He replies "the ho spital?" when I inform him. He says he slept well. He denies SI/HI. When asked about any hallucinations, the patient replies "I don't think so." The patient has episodes of combativeness, and agitation as reported by the nursing staff. 05/20 The patient was seen today. He is sleeping. He easily arouses. He is confused. He believes he's "at the front entrance." The patient denies SI/HI. When asked about hallucinations, the patient replies "not this time, but I've been asleep very deeply." 05/19/21: The patient was seen eating breakfast. He states he is doing ok. He reports sleep and appetite as fair. The patient presents with constricted affect. He denies being depressed, rates anxiety as 9/10. He denies any current suicidal/homicidal ideation but admits to auditory hallucinations " voices don't make sense." 05/18/21:The patient was seen this morning. He reports doing well. The patient is tearful and depressed. He reports having auditory hallucinations " I hear it everyday, it's like hearing a show on the TV." 05/17/21: The patient was seen this morning. He asked time it was " I'm ready for breakfast." The patient states sleep and appetite as ok. He denies any current suicidal/homicidal ideation and when asked about AVHs he states " I don't know." 05/16/21: The patient was seen this morning with his head downward and poor eye contact. The patient is confused. He states " I want to take a nap, that's all I want to do." He denies any current suicidal/homicidal ideation and denies hallucinations. per nurse, "pt is alert and oriented to person, irritable, combative, refused medication." REVIEW OF SYSTEMS MENTAL STATUS EXAMINATION Assessment and Plan (1) Dementia with behavioral disturbance Treatment Plan Patient admitted for inpatient psychiatric evaluation, medication adjustment and close monitoring The patient's behavior, mood, sleep and appetite will be closely monitored. Patient enrolled in individual and group therapeutic sessions and encouraged to attend. Patient provided with a safe and structured environment. Patient's physical health needs will be addressed by the Hospitalist. Hospitalist Consulted Labs including CBC, CMP, Lipid profile and Hemoglobin A1C levels ordered for baseline reference Social Assessment will be completed and the Local Delivery Driver will work with patient and family to ensure a suitable and safe disposition Medication adjustment will be made as clinically indicated Start Valproic Acid 125mg po daily yesterday Increase Olanzapine 5mg po daily [facility]/Preservation: - Start Trazodone 50 mg po QHS & 50 mg po QHS PRN between 10 PM & 2 AM for insomnia - Start Melatonin 5 mg po QHS to promote circadian rhythm The patient agreed on the treatment plan, understood the risk, benefit, alternative treatment, potential consequence of no treatment, and gave informed consent. Estimated days: 5 Post hospital care: primary care provider, psychiatric provider Case staffed with Dr. Morocho Medications and Allergies Allergies Allergy/AdvReac Type Severity Reaction Status Date / Time ibuprofen Allergy Unknown Unverified 05/14/21 16:04 Home Medications Medication Instructions Recorded Confirmed Last Taken Type ALPRAZolam [Xanax TAB] 0.25 mg PO UNK PRN 05/15/21 05/15/21 Unknown History Acyclovir [Zovirax Tab] 400 mg PO BID 05/15/21 05/15/21 Unknown History Apixaban [Eliquis] 2.5 mg PO QHS 05/15/21 05/15/21 Unknown History Aspirin [[place] Aspirin EC] 81 mg PO DAILY 05/15/21 05/15/21 Unknown History Carbidopa/Levodopa [Rytary ER 1 each PO QID 05/15/21 05/16/21 Unknown History 61.25 mg-245 mg Cap] Famotidine [Pepcid] 40 mg PO DAILY 05/15/21 05/15/21 Unknown History Fluticasone/Salmeterol [Advair 1 each IH UNK 05/15/21 05/15/21 Unknown History 250-50 Diskus] Midodrine [Proamatine] 5 mg PO QDAY 05/15/21 05/15/21 Unknown History OLANzapine [ZyPREXA] 2.5 mg PO QHS 05/15/21 05/15/21 Unknown History Pimavanserin Tartrate [Nuplazid] 34 mg PO UNK 05/15/21 05/15/21 Unknown History Venlafaxine [Effexor] 75 mg PO DAILY 05/15/21 05/15/21 Unknown History amantadine HCL [Amantadine] 100 mg PO QDAY 05/15/21 05/15/21 Unknown History traZODone [Desyrel] 100 mg PO QHS 05/15/21 05/15/21 Unknown History Active Meds: Active Medications Acyclovir (Acyclovir 200 Mg Cap) 400 mg PO BID NIELS Last Admin: 05/22/21 21:14 Dose: 400 mg Alprazolam (Alprazolam 0.25 Mg Tab) 0.25 mg PO QPM PRN PRN Reason: NERVES Last Admin: 05/16/21 21:24 Dose: 0.25 mg Amantadine HCl (Amantadine 100 Mg Cap) 100 mg PO QDAY [facility] Last Admin: 05/22/21 11:00 Dose: 100 mg Apixaban (Apixaban 2.5 Mg Tab) 2.5 mg PO Q12HR [facility]; Protocol Last Admin: 05/22/21 21:14 Dose: 2.5 mg Arformoterol Tartrate (Arformoterol 15 Mcg/2 Ml Nebu) 15 mcg IH Q12HRT [facility] Last Admin: 05/23/21 07:48 Dose: 15 mcg Aspirin (Aspirin Ec 81 Mg Tab) 81 mg PO DAILY [facility] Last Admin: 05/22/21 10:59 Dose: 81 mg Budesonide (Budesonide 0.5 Mg/2 Ml Nebu) 0.5 mg IH Q12HRT [facility] Last Admin: 05/23/21 07:48 Dose: 0.5 mg Famotidine (Famotidine 20 Mg Tab) 20 mg PO DAILY [facility] Last Admin: 05/22/21 11:00 Dose: 20 mg Hydroxyzine Pamoate (Hydroxyzine Pamoate 25 Mg Cap) 25 mg PO Q6H PRN PRN Reason: Anxiety Miscellaneous Medication (Carbidopa/Levodopa [Rytary Er 61.25 Mg-245 Mg Cap]) 0 each PO 0700,1200,1700,2200 [facility] Last Admin: 05/22/21 21:13 Dose: 1 each Olanzapine (Olanzapine 2.5 Mg Tab) 2.5 mg PO QHS [facility] Last Admin: 05/22/21 21:14 Dose: 2.5 mg Trazodone HCl (Trazodone 100 Mg Tab) 100 mg PO QHS [facility] Last Admin: 05/22/21 21:14 Dose: 100 mg Valproic Acid (Valproic Acid 250 Mg/5 Ml Oral Liqd) 125 mg PO DAILY [facility] Last Admin: 05/22/21 11:00 Dose: 125 mg Venlafaxine HCl (Venlafaxine 75 Mg Tab) 75 mg PO BID [facility] Last Admin: 05/22/21 21:14 Dose: 75 mg Results - Results Labs/Vitals: Laboratory Last Values WBC 8.0 K/mm3 (4.5-11.0) 05/15/21 14:49 RBC 3.49 M/mm3 (3.65-5.03) L 05/15/21 14:49 Hgb 12.4 gm/dl (11.8-15.2) 05/15/21 14:49 Hct 36.0 % (35.5-45.6) 05/15/21 14:49 MCV 103 fl (84-94) H 05/15/21 14:49 MCH 36 pg (28-32) H 05/15/21 14:49 MCHC 34 % (32-34) 05/15/21 14:49 RDW 13.4 % (13.2-15.2) 05/15/21 14:49 Plt Count 292 K/mm3 (140-440) 05/15/21 14:49 Lymph % (Auto) 6.8 % (13.4-35.0) L 05/15/21 14:49 [place] % (Auto) 6.6 % (0.0-7.3) 05/15/21 14:49 Eos % (Auto) 1.4 % (0.0-4.3) 05/15/21 14:49 Baso % (Auto) 0.6 % (0.0-1.8) 05/15/21 14:49 Lymph # (Auto) 0.5 K/mm3 (1.2-5.4) L 05/15/21 14:49 [place] # (Auto) 0.5 K/mm3 (0.0-0.8) 05/15/21 14:49 Eos # (Auto) 0.1 K/mm3 (0.0-0.4) 05/15/21 14:49 Baso # (Auto) 0.0 K/mm3 (0.0-0.1) 05/15/21 14:49 Seg Neutrophils % 84.6 % (40.0-70.0) H 05/15/21 14:49 Seg Neutrophils # 6.8 K/mm3 (1.8-7.7) 05/15/21 14:49 Sodium 140 mmol/L (137-145) 05/15/21 14:49 Potassium 4.7 mmol/L (3.6-5.0) 05/15/21 14:49 Chloride 101.5 mmol/L (98-107) 05/15/21 14:49 Carbon Dioxide 21 mmol/L (22-30) L 05/15/21 14:49 Anion Gap 22 mmol/L 05/15/21 14:49 BUN 45 mg/dL (9-20) H 05/15/21 14:49 Creatinine 1.8 mg/dL (0.8-1.3) H 05/15/21 14:49 Estimated GFR 36 ml/min 05/15/21 14:49 BUN/Creatinine Ratio 25 % 05/15/21 14:49 Glucose 117 mg/dL (75-100) H 05/15/21 14:49 Hemoglobin A1c 4.9 % (4-6) 05/15/21 14:49 Calcium 9.5 mg/dL (8.4-10.2) 05/15/21 14:49 Total Bilirubin 0.30 mg/dL (0.1-1.2) 05/15/21 14:49 AST 19 units/L (5-40) 05/15/21 14:49 ALT 14 units/L (7-56) 05/15/21 14:49 Alkaline Phosphatase 89 units/L (35-129) 05/15/21 14:49 Total Protein 7.5 g/dL (6.3-8.2) 05/15/21 14:49 Albumin 4.3 g/dL (3.9-5) 05/15/21 14:49 Albumin/Globulin Ratio 1.3 % 05/15/21 14:49 Triglycerides 119 mg/dL (2-149) 05/15/21 14:49 Cholesterol 235 mg/dL (50-199) H 05/15/21 14:49 LDL Cholesterol Direct 161 mg/dL (50-130) H 05/15/21 14:49 HDL Cholesterol 61 mg/dL (40-59) H 05/15/21 14:49 Cholesterol/HDL Ratio 3.85 % 05/15/21 14:49 TSH 6.060 mlU/mL (0.270-4.200) H 05/15/21 14:49 Last Vital Signs Temp 98.3 F 05/22/21 19:24 Pulse 74 05/22/21 21:47 Resp 18 05/22/21 21:47 BP 121/70 05/22/21 19:24 Pulse Ox 97 05/22/21 19:24
[2021-05-23] MEDS: VALPROIC ACID 250 MG/5 ML ORAL LIQD PO SCH (09:22)
[2021-05-23] MEDS: ASPIRIN EC 81 MG TAB PO SCH (09:23)
[2021-05-23] MEDS: FAMOTIDINE 20 MG TAB PO SCH (09:23)
[2021-05-23] MEDS: VENLAFAXINE 75 MG TAB PO SCH ×2 (09:23→21:09)
[2021-05-23] MEDS: CARBIDOPA PO SCH ×4 (09:27→21:07)
[2021-05-23] MEDS: LEVODOPA PO SCH ×4 (09:27→21:07)
[2021-05-23] MEDS: APIXABAN 2.5 MG TAB PO SCH ×2 (09:27→21:09)
[2021-05-23] MEDS: ACYCLOVIR 200 MG CAP PO SCH ×2 (09:51→21:09)
--- NOTE | 2021-05-23 20:25 | Progress Note ---
Assessment and Plan - Patient Problems (1) Atrial fibrillation Current Visit: Yes Status: Acute Plan to address problem: Continue therapeutic anticoagulation, supportive care, outpatient primary care physician follow-up. (2) Vascular dementia with behavior disturbance Current Visit: Yes Status: Acute Plan to address problem: Verbal prompting, verbal redirection, benzodiazepine therapy as clinical indicated. (3) Cerebral atherosclerosis Current Visit: Yes Status: Acute Plan to address problem: Risk factor reduction, antiplatelet therapy as clinically indicated, supportive care. Continue medical management. (4) Malnutrition Current Visit: Yes Status: Acute Qualifiers: Protein-calorie malnutrition severity: moderate Plan to address problem: Increase protein intake, dietary supplementation. (5) Advance care planning Current Visit: Yes Status: Acute Plan to address problem: Disease education done, care plan discussed, diagnoses discussed, prognosis discussed, patient is full code. Patient knowledges understanding and agreed w ith care plan, +30 minutes. History Interval history: 80 YO Male with Vascular Dementia with Behavioral Disturbance, Cerebral Atherosclerosis, HTN, Atrial Fib on therapeutic anticoagulation, Malnutrition, admitted to [facility] psych unit for psychiatric stabilization. Consult placed by Dr. Gr for medical management. The patient was seen and evaluated in the recreation room. No reported nursing events. Patient is at baseline level of cognition and function. Hospitalist Physical - Constitutional Vitals: Temp Pulse Resp BP Pulse Ox 98.3 F 89 16 121/70 97 05/22/21 19:24 05/23/21 20:00 05/23/21 20:00 05/22/21 19:24 05/22/21 19:24 General appearance: Present: no acute distress, well-nourished, other (Sleeping easily awakens) - EENT Eyes: Present: PERRL ENT: hearing decreased - Neck Neck: Present: supple - Respiratory Respiratory effort: normal Respiratory: bilateral: CTA - Cardiovascular Rhythm: regular Heart Sounds: Present: S1 & S2 - Extremities Extremities: no ischemia Peripheral Pulses: within normal limits - Abdominal General gastrointestinal: soft, non-tender, non-distended - Integumentary Integumentary: Present: clear, dry - Psychiatric Psychiatric: cooperative - Neurologic Neurologic: CNII-XII intact Results - Labs CBC & Chem 7: 05/15/21 14:49 05/15/21 14:49 Labs: Laboratory Last Values WBC 8.0 K/mm3 (4.5-11.0) 05/15/21 14:49 RBC 3.49 M/mm3 (3.65-5.03) L 05/15/21 14:49 Hgb 12.4 gm/dl (11.8-15.2) 05/15/21 14:49 Hct 36.0 % (35.5-45.6) 05/15/21 14:49 MCV 103 fl (84-94) H 05/15/21 14:49 MCH 36 pg (28-32) H 05/15/21 14:49 MCHC 34 % (32-34) 05/15/21 14:49 RDW 13.4 % (13.2-15.2) 05/15/21 14:49 Plt Count 292 K/mm3 (140-440) 05/15/21 14:49 Lymph % (Auto) 6.8 % (13.4-35.0) L 05/15/21 14:49 [place] % (Auto) 6.6 % (0.0-7.3) 05/15/21 14:49 Eos % (Auto) 1.4 % (0.0-4.3) 05/15/21 14:49 Baso % (Auto) 0.6 % (0.0-1.8) 05/15/21 14:49 Lymph # (Auto) 0.5 K/mm3 (1.2-5.4) L 05/15/21 14:49 [place] # (Auto) 0.5 K/mm3 (0.0-0.8) 05/15/21 14:49 Eos # (Auto) 0.1 K/mm3 (0.0-0.4) 05/15/21 14:49 Baso # (Auto) 0.0 K/mm3 (0.0-0.1) 05/15/21 14:49 Seg Neutrophils % 84.6 % (40.0-70.0) H 05/15/21 14:49 Seg Neutrophils # 6.8 K/mm3 (1.8-7.7) 05/15/21 14:49 Sodium 140 mmol/L (137-145) 05/15/21 14:49 Potassium 4.7 mmol/L (3.6-5.0) 05/15/21 14:49 Chloride 101.5 mmol/L (98-107) 05/15/21 14:49 Carbon Dioxide 21 mmol/L (22-30) L 05/15/21 14:49 Anion Gap 22 mmol/L 05/15/21 14:49 BUN 45 mg/dL (9-20) H 05/15/21 14:49 Creatinine 1.8 mg/dL (0.8-1.3) H 05/15/21 14:49 Estimated GFR 36 ml/min 05/15/21 14:49 BUN/Creatinine Ratio 25 % 05/15/21 14:49 Glucose 117 mg/dL (75-100) H 05/15/21 14:49 Hemoglobin A1c 4.9 % (4-6) 05/15/21 14:49 Calcium 9.5 mg/dL (8.4-10.2) 05/15/21 14:49 Total Bilirubin 0.30 mg/dL (0.1-1.2) 05/15/21 14:49 AST 19 units/L (5-40) 05/15/21 14:49 ALT 14 units/L (7-56) 05/15/21 14:49 Alkaline Phosphatase 89 units/L (35-129) 05/15/21 14:49 Total Protein 7.5 g/dL (6.3-8.2) 05/15/21 14:49 Albumin 4.3 g/dL (3.9-5) 05/15/21 14:49 Albumin/Globulin Ratio 1.3 % 05/15/21 14:49 Triglycerides 119 mg/dL (2-149) 05/15/21 14:49 Cholesterol 235 mg/dL (50-199) H 05/15/21 14:49 LDL Cholesterol Direct 161 mg/dL (50-130) H 05/15/21 14:49 HDL Cholesterol 61 mg/dL (40-59) H 05/15/21 14:49 Cholesterol/HDL Ratio 3.85 % 05/15/21 14:49 TSH 6.060 mlU/mL (0.270-4.200) H 05/15/21 14:49 Hernandez/IV: Voiding Method Diaper Active Medications - Current Medications Current Medications: Generic Name Dose Route Start Last Admin Trade Name Freq PRN Reason Stop Dose Admin Acyclovir 400 mg 05/15/21 10:00 05/23/21 09:51 Acyclovir 200 Mg Cap PO 400 mg BID NIELS Administration Alprazolam 0.25 mg 05/15/21 18:00 05/16/21 21:24 Alprazolam 0.25 Mg Tab PO 0.25 mg QPM PRN Administration NERVES Amantadine HCl 100 mg 05/15/21 10:00 05/23/21 09:51 Amantadine 100 Mg Cap PO 100 mg QDAY NIELS Administration Apixaban 2.5 mg 05/15/21 14:00 05/23/21 09:27 Apixaban 2.5 Mg Tab PO 2.5 mg Q12HR NIELS Administration Protocol Arformoterol Tartrate 15 mcg 05/15/21 12:00 05/23/21 20:15 Arformoterol 15 Mcg/2 Ml Nebu IH 15 mcg Q12HRT NIELS Administration Aspirin 81 mg 05/15/21 10:00 05/23/21 09:23 Aspirin Ec 81 Mg Tab PO 81 mg DAILY NIELS Administration Budesonide 0.5 mg 05/15/21 12:00 05/23/21 20:15 Budesonide 0.5 Mg/2 Ml Nebu IH 0.5 mg Q12HRT NIELS Administration Famotidine 20 mg 05/21/21 10:00 05/23/21 09:23 Famotidine 20 Mg Tab PO 20 mg DAILY NIELS Administration Hydroxyzine Pamoate 25 mg 05/19/21 09:34 Hydroxyzine Pamoate 25 Mg Cap PO Q6H PRN Anxiety Melatonin 5 mg 05/23/21 22:00 Melatonin 5 Mg Tab PO QHS PRN Sleep Miscellaneous Medication 0 each 05/16/21 17:00 05/23/21 16:40 Carbidopa/Levodopa [Rytary Er 61.25 Mg-245 Mg Cap] PO 1 each 0700,1200,1700,2200 NIELS Administration Olanzapine 5 mg 05/23/21 22:00 Olanzapine 5 Mg Tab PO QHS NIELS Trazodone HCl 100 mg 05/15/21 22:00 05/22/21 21:14 Trazodone 100 Mg Tab PO 100 mg QHS NIELS Administration Valproic Acid 125 mg 05/21/21 10:00 05/23/21 09:22 Valproic Acid 250 Mg/5 Ml Oral Liqd PO 125 mg DAILY NIELS Administration Venlafaxine HCl 75 mg 05/18/21 10:00 05/23/21 09:23 Venlafaxine 75 Mg Tab PO 75 mg BID NIELS Administration Nutrition/Malnutrition Assess - Dietary Evaluation Nutrition/Malnutrition Findings: Nutrition Notes Start: 05/23/21 17:07 Freq: Status: Active Protocol: Document 05/23/21 17:08 ZAHRAA (Rec: 05/23/21 17:13 [email or web address] [id number]) Nutrition Notes Need for Assessment generated from: LOS Initial or Follow up Assessment Other Pertinent Diagnosis Dementia w/Behavioral Disturbance. Current Diet Regular Diet (since B 05/15). Labs/Tests 05/23: N/A. Pertinent Medications 05/23: Nutritionally unremarkable. Height 6 ft Weight 64.8 kg [place] Body Weight (kg) 80.90 BMI 19.3 Intake Prior to Admission Good Weight change and time frame Pt states being unsure if loss body weight [employer]OUN[employer]. Weight Status Appropriate Subjective/Other Information RD consult for LOS assessment. Pt's PO intake of meals has been Good (75-100%), according to ADL notes. Percent of energy/protein needs met: Prescribed Regular Diet provides for energy/protein needs (2,289 Kcal/89 g) during LOS. Burn Absent Trauma Absent GI Symptoms None Food Allergy No Skin Integrity/Comment R-Elbow Bruises. Current % PO Good (75-100%) Minimum of two criteria No #1 Nutrition Diagnosis No nutrition diagnosis at this time Is patient on ventilator? No Is Patient Ambulatory and/or Out of Bed Yes REE-([place]-ambulatory/OOB) [ 1801.800 [id number]] Kcal/Kg value to use for calculation 31 Approximate Energy Requirements Using 2009 kcal/Kg Calculation Used for Recommendations Kcal/kg Additional Notes Protein: 1-1.2 g/Kg IBW; 81-97 g/day. Fluids: 1 ml/Kcal, or as per MD. Nutrition Intervention Revisit per MD consult or patient Sign Off request: Additional Comments Continue monitoring food tolerance, %PO intake of meals , and BM.
[2021-05-23] MEDS: traZODone 100 MG TAB PO SCH (21:08)
[2021-05-23] MEDS ORDERED: MELATONIN 5 MG TAB PO PRN (22:00)
[2021-05-24] MEDS: LEVODOPA PO SCH ×4 (06:13→21:00)
[2021-05-24] MEDS: CARBIDOPA PO SCH ×4 (06:13→21:00)
[2021-05-24] MEDS: BUDESONIDE 0.5 MG/2 ML NEBU IH SCH (08:54)
[2021-05-24] MEDS: ARFORMOTEROL 15 MCG/2 ML NEBU IH SCH (08:55)
--- NOTE | 2021-05-24 09:19 | Progress Note ---
Subjective Date of service: 05/24/21 Principal diagnosis: Dementia with Behavioral disturbance Subjective Comment: 05/24/21:The patient was seen today. He states he feels fine. The patient presents with constricted affect. He denies depression and denies suicidal/homicidal ideation. The patient reports having intermittent auditory hallucinations but unable to state what the voice is saying. Denies visual hallucinations. No aggressive behavior reported. 05/22 The patient was seen today. He is sleeping, but easily arouses. He says he's cold. I pulled the blanket up on the patient. He thanks me. He says he slept well. He denies SI/HI. The patient says "I'm ready to go home." 05/21 Per nurse note: Patient's bed alarm went off. Tech found patient with both legs over railing of bed. He was rocking back and forth to get himself out of be d. When staff attempted to assist him he became angry and tried to kick staff. He was confused and thought his daughter was in his room. Staff tried to reorient patient and help him calm down but he continued to call out and try to get out of bed. This copy writer and tech asked patient how we could help him. He yelled and tried to kick and hit staff with his fists. Staff had to hold his ankles for a short time to keep him from kicking and getting out of bed. Patient yelled that he could walk and that he wanted to kill this copy writer. Each time staff moved away from patient he would begin to try to throw his legs over the railing and rock to get up. Hospitalist was called and order received for Geodon 10 mg IM for agitation. Patient continually threatening staff with harm and threatening to get staff fired. After receiving Geodon the patient slowly relaxed and was able to sleep. Will continue to monitor patient for safety. The patient was seen today. He is lying in bed. He easily arouses. He is confused and shocked to hear that he is in the hospital. He replies "the hospital?" when I inform him. He says he slept well. He denies SI/HI. When asked about any hallucinations, the patient replies "I don't think so." The patient has episodes of combativeness, and agitation as reported by the nursing staff. 05/20 The patient was seen today. He is sleeping. He easily arouses. He is confused. He believes he's "at the front entrance." The patient denies SI/HI. When asked about hallucinations, the patient replies "not this time, but I've been asleep very deeply." 05/19/21: The patient was seen eating breakfast. He states he is doing ok. He reports sleep and appetite as fair. The patient presents with constricted affect. He denies being depressed, rates anxiety as 9/10. He denies any current suicidal/homicidal ideation but admits to auditory hallucinations " voices don't make sense." 05/18/21:The patient was seen this morning. He reports doing well. The patient is tearful and depressed. He reports having auditory hallucinations " I hear it everyday, it's like hearing a show on the TV." 05/17/21: The patient was seen this morning. He asked time it was " I'm ready for breakfast." The patient states sleep and appetite as ok. He denies any current suicidal/homicidal ideation and when asked about AVHs he states " I don't know." 05/16/21: The patient was seen this morning with his head downward and poor eye contact. The patient is confused. He states " I want to take a nap, that's all I want to do." He denies any current suicidal/homicidal ideation and denies hallucinations. per nurse, "pt is alert and oriented to person, irritable, combative, refused medication." REVIEW OF SYSTEMS MENTAL STATUS EXAMINATION Assessment and Plan (1) Dementia with behavioral disturbance Treatment Plan Patient admitted for inpatient psychiatric evaluation, medication adjustment and close monitoring The patient's behavior, mood, sleep and appetite will be closely monitored. Patient enrolled in individual and group therapeutic sessions and encouraged to attend. Patient provided with a safe and structured environment. Patient's physical health needs will be addressed by the Hospitalist. Hospitalist Consulted Labs including CBC, CMP, Lipid profile and Hemoglobin A1C levels ordered for baseline reference Social Assessment will be completed and the Geoscience Professor will work with patient and family to ensure a suitable and safe disposition Medication adjustment will be made as clinically indicated Start Valproic Acid 125mg po daily yesterday Increase Olanzapine 5mg po daily Usual Wellness [facility]/Preservation: - Start Trazodone 50 mg po QHS & 50 mg po QHS PRN between 10 PM & 2 AM for insomnia - Start Melatonin 5 mg po QHS to promote circadian rhythm The patient agreed on the treatment plan, understood the risk, benefit, alternative treatment, potential consequence of no treatment, and gave informed consent. Estimated days: 5 Post hospital care: primary care provider, psychiatric provider Case staffed with Dr. Morocho Medications and Allergies Medications and Allergies Allergies Allergy/AdvReac Type Severity Reaction Status Date / Time ibuprofen Allergy Unknown Unverified 05/14/21 16:04 Home Medications Medication Instructions Recorded Confirmed Last Taken Type ALPRAZolam [Xanax TAB] 0.25 mg PO UNK PRN 05/15/21 05/15/21 Unknown History Acyclovir [Zovirax Tab] 400 mg PO BID 05/15/21 05/15/21 Unknown History Apixaban [Eliquis] 2.5 mg PO QHS 05/15/21 05/15/21 Unknown History Aspirin [[place] Aspirin EC] 81 mg PO DAILY 05/15/21 05/15/21 Unknown History Carbidopa/Levodopa [Rytary ER 1 each PO QID 05/15/21 05/16/21 Unknown History 61.25 mg-245 mg Cap] Famotidine [Pepcid] 40 mg PO DAILY 05/15/21 05/15/21 Unknown History Fluticasone/Salmeterol [Advair 1 each IH UNK 05/15/21 05/15/21 Unknown History 250-50 Diskus] Midodrine [Proamatine] 5 mg PO QDAY 05/15/21 05/15/21 Unknown History OLANzapine [ZyPREXA] 2.5 mg PO QHS 05/15/21 05/15/21 Unknown History Pimavanserin Tartrate [Nuplazid] 34 mg PO UNK 05/15/21 05/15/21 Unknown History Venlafaxine [Effexor] 75 mg PO DAILY 05/15/21 05/15/21 Unknown History amantadine HCL [Amantadine] 100 mg PO QDAY 05/15/21 05/15/21 Unknown History traZODone [Desyrel] 100 mg PO QHS 05/15/21 05/15/21 Unknown History Active Meds: Active Medications Acyclovir (Acyclovir 200 Mg Cap) 400 mg PO BID [facility] Last Admin: 05/23/21 21:09 Dose: 400 mg Alprazolam (Alprazolam 0.25 Mg Tab) 0.25 mg PO QPM PRN PRN Reason: NERVES Last Admin: 05/16/21 21:24 Dose: 0.25 mg Amantadine HCl (Amantadine 100 Mg Cap) 100 mg PO QDAY [facility] Last Admin: 05/23/21 09:51 Dose: 100 mg Apixaban (Apixaban 2.5 Mg Tab) 2.5 mg PO Q12HR [facility]; Protocol Last Admin: 05/23/21 21:09 Dose: 2.5 mg Arformoterol Tartrate (Arformoterol 15 Mcg/2 Ml Nebu) 15 mcg IH Q12HRT [facility] Last Admin: 05/24/21 08:55 Dose: 15 mcg Aspirin (Aspirin Ec 81 Mg Tab) 81 mg PO DAILY [facility] Last Admin: 05/23/21 09:23 Dose: 81 mg Budesonide (Budesonide 0.5 Mg/2 Ml Nebu) 0.5 mg IH Q12HRT [facility] Last Admin: 05/24/21 08:54 Dose: 0.5 mg Famotidine (Famotidine 20 Mg Tab) 20 mg PO DAILY [facility] Last Admin: 05/23/21 09:23 Dose: 20 mg Hydroxyzine Pamoate (Hydroxyzine Pamoate 25 Mg Cap) 25 mg PO Q6H PRN PRN Reason: Anxiety Melatonin (Melatonin 5 Mg Tab) 5 mg PO QHS PRN PRN Reason: Sleep Miscellaneous Medication (Carbidopa/Levodopa [Rytary Er 61.25 Mg-245 Mg Cap]) 0 each PO 0700,1200,1700,2200 [facility] Last Admin: 05/24/21 06:13 Dose: 2 each Olanzapine (Olanzapine 5 Mg Tab) 5 mg PO QHS [facility] Last Admin: 05/23/21 21:10 Dose: 5 mg Trazodone HCl (Trazodone 100 Mg Tab) 100 mg PO QHS [facility] Last Admin: 05/23/21 21:08 Dose: 100 mg Valproic Acid (Valproic Acid 250 Mg/5 Ml Oral Liqd) 125 mg PO DAILY [facility] Last Admin: 05/23/21 09:22 Dose: 125 mg Venlafaxine HCl (Venlafaxine 75 Mg Tab) 75 mg PO BID [facility] Last Admin: 05/23/21 21:09 Dose: 75 mg Results - Results Labs/Vitals: Laboratory Last Values WBC 8.0 K/mm3 (4.5-11.0) 05/15/21 14:49 RBC 3.49 M/mm3 (3.65-5.03) L 05/15/21 14:49 Hgb 12.4 gm/dl (11.8-15.2) 05/15/21 14:49 Hct 36.0 % (35.5-45.6) 05/15/21 14:49 MCV 103 fl (84-94) H 05/15/21 14:49 MCH 36 pg (28-32) H 05/15/21 14:49 MCHC 34 % (32-34) 05/15/21 14:49 RDW 13.4 % (13.2-15.2) 05/15/21 14:49 Plt Count 292 K/mm3 (140-440) 05/15/21 14:49 Lymph % (Auto) 6.8 % (13.4-35.0) L 05/15/21 14:49 [place] % (Auto) 6.6 % (0.0-7.3) 05/15/21 14:49 Eos % (Auto) 1.4 % (0.0-4.3) 05/15/21 14:49 Baso % (Auto) 0.6 % (0.0-1.8) 05/15/21 14:49 Lymph # (Auto) 0.5 K/mm3 (1.2-5.4) L 05/15/21 14:49 [place] # (Auto) 0.5 K/mm3 (0.0-0.8) 05/15/21 14:49 Eos # (Auto) 0.1 K/mm3 (0.0-0.4) 05/15/21 14:49 Baso # (Auto) 0.0 K/mm3 (0.0-0.1) 05/15/21 14:49 Seg Neutrophils % 84.6 % (40.0-70.0) H 05/15/21 14:49 Seg Neutrophils # 6.8 K/mm3 (1.8-7.7) 05/15/21 14:49 Sodium 140 mmol/L (137-145) 05/15/21 14:49 Potassium 4.7 mmol/L (3.6-5.0) 05/15/21 14:49 Chloride 101.5 mmol/L (98-107) 05/15/21 14:49 Carbon Dioxide 21 mmol/L (22-30) L 05/15/21 14:49 Anion Gap 22 mmol/L 05/15/21 14:49 BUN 45 mg/dL (9-20) H 05/15/21 14:49 Creatinine 1.8 mg/dL (0.8-1.3) H 05/15/21 14:49 Estimated GFR 36 ml/min 05/15/21 14:49 BUN/Creatinine Ratio 25 % 05/15/21 14:49 Glucose 117 mg/dL (75-100) H 05/15/21 14:49 Hemoglobin A1c 4.9 % (4-6) 05/15/21 14:49 Calcium 9.5 mg/dL (8.4-10.2) 05/15/21 14:49 Total Bilirubin 0.30 mg/dL (0.1-1.2) 05/15/21 14:49 AST 19 units/L (5-40) 05/15/21 14:49 ALT 14 units/L (7-56) 05/15/21 14:49 Alkaline Phosphatase 89 units/L (35-129) 05/15/21 14:49 Total Protein 7.5 g/dL (6.3-8.2) 05/15/21 14:49 Albumin 4.3 g/dL (3.9-5) 05/15/21 14:49 Albumin/Globulin Ratio 1.3 % 05/15/21 14:49 Triglycerides 119 mg/dL (2-149) 05/15/21 14:49 Cholesterol 235 mg/dL (50-199) H 05/15/21 14:49 LDL Cholesterol Direct 161 mg/dL (50-130) H 05/15/21 14:49 HDL Cholesterol 61 mg/dL (40-59) H 05/15/21 14:49 Cholesterol/HDL Ratio 3.85 % 05/15/21 14:49 TSH 6.060 mlU/mL (0.270-4.200) H 05/15/21 14:49 Last Vital Signs Temp 97.7 F 05/23/21 19:37 Pulse 73 05/24/21 08:58 Resp 16 05/24/21 08:58 BP 149/78 05/23/21 19:37 Pulse Ox 98 05/23/21 19:37
[2021-05-24] MEDS: APIXABAN 2.5 MG TAB PO SCH ×2 (11:00→21:04)
[2021-05-24] MEDS: ASPIRIN EC 81 MG TAB PO SCH (11:15)
[2021-05-24] MEDS: VENLAFAXINE 75 MG TAB PO SCH ×2 (11:16→21:03)
[2021-05-24] MEDS: FAMOTIDINE 20 MG TAB PO SCH (11:17)
[2021-05-24] MEDS: ACYCLOVIR 200 MG CAP PO SCH ×2 (11:18→21:04)
[2021-05-24] MEDS: VALPROIC ACID 250 MG/5 ML ORAL LIQD PO SCH (11:18)
[2021-05-24] MEDS: traZODone 100 MG TAB PO SCH (21:03)
[2021-05-25] MEDS: BUDESONIDE 0.5 MG/2 ML NEBU IH SCH ×2 (01:42→13:40)
[2021-05-25] MEDS: ARFORMOTEROL 15 MCG/2 ML NEBU IH SCH ×2 (01:42→13:40)
[2021-05-25] MEDS: CARBIDOPA PO SCH ×4 (08:05→21:14)
[2021-05-25] MEDS: LEVODOPA PO SCH ×4 (08:05→21:14)
--- NOTE | 2021-05-25 08:35 | Progress Note ---
Subjective Date of service: 05/25/21 Principal diagnosis: Dementia with Behavioral disturbance Subjective Comment: 05/25/21: The patient was seen this morning. He states he is doing fine. He reports sleep and appetite as good. The patient denies depression and denies suicidal/homicidal ideation. The patient reports having intermittent auditory hallucinations " whatever is on the screen." 05/24/21:The patient was seen today. He states he feels fine. The patient pres ents with constricted affect. He denies depression and denies suicidal/homicidal ideation. The patient reports having intermittent auditory hallucinations but unable to state what the voice is saying. Denies visual hallucinations. No aggressive behavior reported. 05/22 The patient was seen today. He is sleeping, but easily arouses. He says he's cold. I pulled the blanket up on the patient. He thanks me. He says he slept well. He denies SI/HI. The patient says "I'm ready to go home." 05/21 Per nurse note: Patient's bed alarm went off. Tech found patient with both legs over railing of bed. He was rocking back and forth to get himself out of bed. When staff attempted to assist him he became angry and tried to kick staff. He was confused and thought his daughter was in his room. Staff tried to reorient patient and help him calm down but he continued to call out and try to get out of bed. This blurb writer and tech asked patient how we could help him. He yelled and tried to kick and hit staff with his fists. Staff had to hold his ankles for a short time to keep him from kicking and getting out of bed. Patient yelled that he could walk and that he wanted to kill this blurb writer. Each time staff moved away from patient he would begin to try to throw his legs over the railing and rock to get up. Hospitalist was called and order received for Geodon 10 mg IM for agitation. Patient continually threatening staff with harm and threatening to get staff fired. After receiving Geodon the patient slowly relaxed and was able to sleep. Will continue to monitor patient for safety. The patient was seen today. He is lying in bed. He easily arouses. He is confused and shocked to hear that he is in the hospital. He replies "the hospital?" when I inform him. He says he slept well. He denies SI/HI. When asked about any hallucinations, the patient replies "I don't think so." The patient has episodes of combativeness, and agitation as reported by the nursing staff. 05/20 The patient was seen today. He is sleeping. He easily arouses. He is confused. He believes he's "at the front entrance." The patient denies SI/HI. When asked about hallucinations, the patient replies "not this time, but I've been asleep very deeply." 05/19/21: The patient was seen eating breakfast. He states he is doing ok. He reports sleep and appetite as fair. The patient presents with constricted affect. He denies being depressed, rates anxiety as 9/10. He denies any current suicidal/homicidal ideation but admits to auditory hallucinations " voices don't make sense." 05/18/21:The patient was seen this morning. He reports doing well. The patient is tearful and depressed. He reports having auditory hallucinations " I hear it everyday, it's like hearing a show on the TV." 05/17/21: The patient was seen this morning. He asked time it was " I'm ready for breakfast." The patient states sleep and appetite as ok. He denies any current suicidal/homicidal ideation and when asked about AVHs he states " I don't know." 05/16/21: The patient was seen this morning with his head downward and poor eye contact. The patient is confused. He states " I want to take a nap, that's all I want to do." He denies any current suicidal/homicidal ideation and denies hallucinations. per nurse, "pt is alert and oriented to person, irritable, combative, refused medication." REVIEW OF SYSTEMS MENTAL STATUS EXAMINATION Assessment and Plan (1) Dementia with behavioral disturbance Treatment Plan Patient admitted for inpatient psychiatric evaluation, medication adjustment and close monitoring The patient's behavior, mood, sleep and appetite will be closely monitored. Patient enrolled in individual and group therapeutic sessions and encouraged to attend. Patient provided with a safe and structured environment. Patient's physical health needs will be addressed by the Hospitalist. Bonnie ospitalist Consulted Labs including CBC, CMP, Lipid profile and Hemoglobin A1C levels ordered for baseline reference Social Assessment will be completed and the Sas Bi Developer will work with patient and family to ensure a suitable and safe disposition Medication adjustment will be made as clinically indicated Start Valproic Acid 125mg po daily yesterday Increase Olanzapine 5mg po daily Usual Wellness [facility]/Preservation: - Start Trazodone 50 mg po QHS & 50 mg po QHS PRN between 10 PM & 2 AM for insomnia - Start Melatonin 5 mg po QHS to promote circadian rhythm The patient agreed on the treatment plan, understood the risk, benefit, alternative treatment, potential consequence of no treatment, and gave informed consent. Estimated days: 5 Post hospital care: primary care provider, psychiatric provider Case staffed with Dr. Morocho Medications and Allergies Medications and Allergies Allergies Allergy/AdvReac Type Severity Reaction Status Date / Time ibuprofen Allergy Anaphylaxis Verified 05/24/21 14:33 Home Medications Medication Instructions Recorded Confirmed Last Taken Type ALPRAZolam [Xanax TAB] 0.25 mg PO UNK PRN 05/15/21 05/15/21 Unknown History Acyclovir [Zovirax Tab] 400 mg PO BID 05/15/21 05/15/21 Unknown History Apixaban [Eliquis] 2.5 mg PO QHS 05/15/21 05/15/21 Unknown History Aspirin [[place] Aspirin EC] 81 mg PO DAILY 05/15/21 05/15/21 Unknown History Carbidopa/Levodopa [Rytary ER 1 each PO QID 05/15/21 05/16/21 Unknown History 61.25 mg-245 mg Cap] Famotidine [Pepcid] 40 mg PO DAILY 05/15/21 05/15/21 Unknown History Fluticasone/Salmeterol [Advair 1 each IH UNK 05/15/21 05/15/21 Unknown History 250-50 Diskus] Midodrine [Proamatine] 5 mg PO QDAY 05/15/21 05/15/21 Unknown History OLANzapine [ZyPREXA] 2.5 mg PO QHS 05/15/21 05/15/21 Unknown History Pimavanserin Tartrate [Nuplazid] 34 mg PO UNK 05/15/21 05/15/21 Unknown History Venlafaxine [Effexor] 75 mg PO DAILY 05/15/21 05/15/21 Unknown History amantadine HCL [Amantadine] 100 mg PO QDAY 05/15/21 05/15/21 Unknown History traZODone [Desyrel] 100 mg PO QHS 05/15/21 05/15/21 Unknown History Active Meds: Active Medications Acyclovir (Acyclovir 200 Mg Cap) 400 mg PO BID [facility] Last Admin: 05/24/21 21:04 Dose: 400 mg Alprazolam (Alprazolam 0.25 Mg Tab) 0.25 mg PO QPM PRN PRN Reason: NERVES Last Admin: 05/16/21 21:24 Dose: 0.25 mg Amantadine HCl (Amantadine 100 Mg Cap) 100 mg PO QDAY [facility] Last Admin: 05/24/21 11:00 Dose: 100 mg Apixaban (Apixaban 2.5 Mg Tab) 2.5 mg PO Q12HR [facility]; Protocol Last Admin: 05/24/21 21:04 Dose: 2.5 mg Arformoterol Tartrate (Arformoterol 15 Mcg/2 Ml Nebu) 15 mcg IH Q12HRT [facility] Last Admin: 05/25/21 01:42 Dose: Not Given Aspirin (Aspirin Ec 81 Mg Tab) 81 mg PO DAILY [facility] Last Admin: 05/24/21 11:15 Dose: 81 mg Budesonide (Budesonide 0.5 Mg/2 Ml Nebu) 0.5 mg IH Q12HRT [facility] Last Admin: 05/25/21 01:42 Dose: Not Given Famotidine (Famotidine 20 Mg Tab) 20 mg PO DAILY [facility] Last Admin: 05/24/21 11:17 Dose: 20 mg Hydroxyzine Pamoate (Hydroxyzine Pamoate 25 Mg Cap) 25 mg PO Q6H PRN PRN Reason: Anxiety Melatonin (Melatonin 5 Mg Tab) 5 mg PO QHS PRN PRN Reason: Sleep Miscellaneous Medication (Carbidopa/Levodopa [Rytary Er 61.25 Mg-245 Mg Cap]) 0 each PO 0700,1200,1700,2200 [facility] Last Admin: 05/25/21 08:05 Dose: 1 each Olanzapine (Olanzapine 5 Mg Tab) 5 mg PO QHS [facility] Last Admin: 05/24/21 21:05 Dose: 5 mg Trazodone HCl (Trazodone 100 Mg Tab) 100 mg PO QHS [facility] Last Admin: 05/24/21 21:03 Dose: 100 mg Valproic Acid (Valproic Acid 250 Mg/5 Ml Oral Liqd) 125 mg PO DAILY [facility] Last Admin: 05/24/21 11:18 Dose: 125 mg Venlafaxine HCl (Venlafaxine 75 Mg Tab) 75 mg PO BID [facility] Last Admin: 05/24/21 21:03 Dose: 75 mg Results - Results Labs/Vitals: Laboratory Last Values WBC 8.0 K/mm3 (4.5-11.0) 05/15/21 14:49 RBC 3.49 M/mm3 (3.65-5.03) L 05/15/21 14:49 Hgb 12.4 gm/dl (11.8-15.2) 05/15/21 14:49 Hct 36.0 % (35.5-45.6) 05/15/21 14:49 MCV 103 fl (84-94) H 05/15/21 14:49 MCH 36 pg (28-32) H 05/15/21 14:49 MCHC 34 % (32-34) 05/15/21 14:49 RDW 13.4 % (13.2-15.2) 05/15/21 14:49 Plt Count 292 K/mm3 (140-440) 05/15/21 14:49 Lymph % (Auto) 6.8 % (13.4-35.0) L 05/15/21 14:49 [place] % (Auto) 6.6 % (0.0-7.3) 05/15/21 14:49 Eos % (Auto) 1.4 % (0.0-4.3) 05/15/21 14:49 Baso % (Auto) 0.6 % (0.0-1.8) 05/15/21 14:49 Lymph # (Auto) 0.5 K/mm3 (1.2-5.4) L 05/15/21 14:49 [place] # (Auto) 0.5 K/mm3 (0.0-0.8) 05/15/21 14:49 Eos # (Auto) 0.1 K/mm3 (0.0-0.4) 05/15/21 14:49 Baso # (Auto) 0.0 K/mm3 (0.0-0.1) 05/15/21 14:49 Seg Neutrophils % 84.6 % (40.0-70.0) H 05/15/21 14:49 Seg Neutrophils # 6.8 K/mm3 (1.8-7.7) 05/15/21 14:49 Sodium 140 mmol/L (137-145) 05/15/21 14:49 Potassium 4.7 mmol/L (3.6-5.0) 05/15/21 14:49 Chloride 101.5 mmol/L (98-107) 05/15/21 14:49 Carbon Dioxide 21 mmol/L (22-30) L 05/15/21 14:49 Anion Gap 22 mmol/L 05/15/21 14:49 BUN 45 mg/dL (9-20) H 05/15/21 14:49 Creatinine 1.8 mg/dL (0.8-1.3) H 05/15/21 14:49 Estimated GFR 36 ml/min 05/15/21 14:49 BUN/Creatinine Ratio 25 % 05/15/21 14:49 Glucose 117 mg/dL (75-100) H 05/15/21 14:49 Hemoglobin A1c 4.9 % (4-6) 05/15/21 14:49 Calcium 9.5 mg/dL (8.4-10.2) 05/15/21 14:49 Total Bilirubin 0.30 mg/dL (0.1-1.2) 05/15/21 14:49 AST 19 units/L (5-40) 05/15/21 14:49 ALT 14 units/L (7-56) 05/15/21 14:49 Alkaline Phosphatase 89 units/L (35-129) 05/15/21 14:49 Total Protein 7.5 g/dL (6.3-8.2) 05/15/21 14:49 Albumin 4.3 g/dL (3.9-5) 05/15/21 14:49 Albumin/Globulin Ratio 1.3 % 05/15/21 14:49 Triglycerides 119 mg/dL (2-149) 05/15/21 14:49 Cholesterol 235 mg/dL (50-199) H 05/15/21 14:49 LDL Cholesterol Direct 161 mg/dL (50-130) H 05/15/21 14:49 HDL Cholesterol 61 mg/dL (40-59) H 05/15/21 14:49 Cholesterol/HDL Ratio 3.85 % 05/15/21 14:49 TSH 6.060 mlU/mL (0.270-4.200) H 05/15/21 14:49 Last Vital Signs Temp 97.4 F L 05/24/21 19:37 Pulse 83 05/24/21 19:37 Resp 17 05/24/21 19:37 BP 116/72 05/24/21 19:37 Pulse Ox 99 05/24/21 19:37
[2021-05-25] MEDS: VALPROIC ACID 250 MG/5 ML ORAL LIQD PO SCH (09:00)
[2021-05-25] MEDS: FAMOTIDINE 20 MG TAB PO SCH (09:00)
[2021-05-25] MEDS: ASPIRIN EC 81 MG TAB PO SCH (09:00)
[2021-05-25] MEDS: APIXABAN 2.5 MG TAB PO SCH ×2 (09:00→21:16)
[2021-05-25] MEDS: ACYCLOVIR 200 MG CAP PO SCH ×2 (09:01→21:17)
[2021-05-25] MEDS: VENLAFAXINE 75 MG TAB PO SCH ×2 (09:37→21:18)
[2021-05-25] MEDS: POLYETHYLENE GLYCOL 3350 17 GM POWDER PO PRN (17:08)
[2021-05-25] MEDS: traZODone 100 MG TAB PO SCH (21:17)
[2021-05-26] MEDS: CARBIDOPA PO SCH ×4 (08:41→21:17)
[2021-05-26] MEDS: LEVODOPA PO SCH ×4 (08:41→21:17)
[2021-05-26] MEDS: ASPIRIN EC 81 MG TAB PO SCH ×2 (08:42→10:00)
[2021-05-26] MEDS: VENLAFAXINE 75 MG TAB PO SCH ×3 (08:42→21:18)
[2021-05-26] MEDS: APIXABAN 2.5 MG TAB PO SCH ×3 (08:43→21:18)
[2021-05-26] MEDS: VALPROIC ACID 250 MG/5 ML ORAL LIQD PO SCH ×2 (08:43→10:00)
[2021-05-26] MEDS: ACYCLOVIR 200 MG CAP PO SCH (08:43)
[2021-05-26] MEDS: FAMOTIDINE 20 MG TAB PO SCH ×2 (08:43→10:00)
--- NOTE | 2021-05-26 09:02 | Progress Note ---
Subjective - Reason for Consult Consult date: 05/26/21 Reason for consult: si - Chief Complaint Chief complaint: 05/26/21:The patient was seen this at breakfast. He states he is doing fine. He reports sleep and appetite as good. The patient denies depression and denies suicidal/homicidal ideation. The patient reports having intermittent auditory hallucinations " it's part of my condition." 05/25/21: The patient was seen this morning. He states he is doing fine. He reports sleep and appetite as good. The patient denies depression and denies suicidal/homicidal ideation. The patient reports having intermittent auditory hallucinations " whatever is on the screen." 05/24/21:The patient was seen today. He states he feels fine. The patient presents with constricted affect. He denies depression and denies suicidal/homicidal ideation. The patient reports having intermittent auditory hallucinations but unable to state what the voice is saying. Denies visual hallucinations. No aggressive behavior reported. 05/22 The patient was seen today. He is sleeping, but easily arouses. He says he's cold. I pulled the blanket up on the patient. He thanks me. He says he slept well. He denies SI/HI. The patient says "I'm ready to go home." 05/21 Per nurse note: Patient's bed alarm went off. Tech found patient with both legs over railing of bed. He was rocking back and forth to get himself out of bed. When staff attempted to assist him he became angry and tried to kick staff. He was confused and thought his daughter was in his room. Staff tried to reorient patient and help him calm down but he continued to call out and try to get out of bed. This radio script writer and tech asked patient how we could help him. He yelled and tried to kick and hit staff with his fists. Staff had to hold his ankles for a short time to keep him from kicking and getting out of bed. Patient yelled that he could walk and that he wanted to kill this radio script writer. Each time staff moved away from patient he would begin to try to throw his legs over the railing and rock to get up. Hospitalist was called and order received for Geodon 10 mg IM for agitation. Patient continually threatening staff with harm and threatening to get staff fired. After receiving Geodon the patient slowly relaxed and was able to sleep. Will continue to monitor patient for safety. The patient was seen today. He is lying in bed. He easily arouses. He is confused and shocked to hear that he is in the hospital. He replies "the hospital?" when I inform him. He says he slept well. He denies SI/HI. When asked about any hallucinations, the patient replies "I don't think so." The patient has episodes of combativeness, and agitation as reported by the nursing staff. 05/20 The patient was seen today. He is sleeping. He easily arouses. He is confused. He believes he's "at the front entrance." The patient denies SI/HI. When asked about hallucinations, the patient replies "not this time, but I've been asleep very deeply." 05/19/21: The patient was seen eating breakfast. He states he is doing ok. He reports sleep and appetite as fair. The patient presents with constricted affect. He denies being depressed, rates anxiety as 9/10. He denies any current suicidal/homicidal ideation but admits to auditory hallucinations " voices don't make sense." 05/18/21:The patient was seen this morning. He reports doing well. The patient is tearful and depressed. He reports having auditory hallucinations " I hear it everyday, it's like hearing a show on the TV." 05/17/21: The patient was seen this morning. He asked time it was " I'm ready for breakfast." The patient states sleep and appetite as ok. He denies any current suicidal/homicidal ideation and when asked about AVHs he states " I don't know." 05/16/21: The patient was seen this morning with his head downward and poor eye contact. The patient is confused. He states " I want to take a nap, that's all I want to do." He denies any current suicidal/homicidal ideation and denies hallucinations. per nurse, "pt is alert and oriented to person, irritable, combative, refused medication." REVIEW OF SYSTEMS MENTAL STATUS EXAMINATION Assessment and Plan (1) Dementia with behavioral disturbance Treatment Plan Patient admitted for inpatient psychiatric evaluation, medication adjustment and close monitoring The patient's behavior, mood, sleep and appetite will be closely monitored. Patient enrolled in individual and group therapeutic sessions and encouraged to attend. Patient provided with a safe and structured environment. Patient's physical health needs will be addressed by the Hospitalist. Hospitalist Consulted Labs including CBC, CMP, Lipid profile and Hemoglobin A1C levels ordered for baseline reference Social Assessment will be completed and the Scissors Sharpener will work with patient and family to ensure a suitable and safe disposition Medication adjustment will be made as clinically indicated Continue Valproic Acid 125mg po daily yesterday Continue Olanzapine 5mg po daily [facility]ual Wellness Adventist/Preservation: - Start Trazodone 50 mg po QHS & 50 mg po QHS PRN between 10 PM & 2 AM for insomnia - Start Melatonin 5 mg po QHS to promote circadian rhythm The patient agreed on the treatment plan, understood the risk, benefit, alternative treatment, potential consequence of no treatment, and gave informed consent. Estimated days: 5 Post hospital care: primary care provider, psychiatric provider Case staffed with Dr. Morocho Medications and Allergies Mental Status Exam - Vital signs Last Vital Signs Temp 98.6 F 05/25/21 20:34 Pulse 70 05/25/21 20:34 Resp 18 05/25/21 20:34 BP 168/82 05/25/21 20:34 Pulse Ox 99 05/25/21 20:34
--- NOTE | 2021-05-26 12:56 | Progress Note ---
Assessment and Plan - Patient Problems (1) Atrial fibrillation Current Visit: Yes Status: Acute Plan to address problem: Continue therapeutic anticoagulation, supportive care, outpatient primary care physician follow-up. (2) Vascular dementia with behavior disturbance Current Visit: Yes Status: Acute Plan to address problem: Verbal prompting, verbal redirection, benzodiazepine therapy as clinical indicated. (3) Cerebral atherosclerosis Current Visit: Yes Status: Acute Plan to address problem: Risk factor reduction, antiplatelet therapy as clinically indicated, supportive care. Continue medical management. (4) Malnutrition Current Visit: Yes Status: Acute Qualifiers: Protein-calorie malnutrition severity: moderate Plan to address problem: Increase protein intake, dietary supplementation. (5) Advance care planning Current Visit: Yes Status: Acute Plan to address problem: Disease education done, care plan discussed, diagnoses discussed, prognosis discussed, patient is full code. Patient knowledges understanding and agreed w ith care plan, +30 minutes. History Interval history: 80 YO Male with Vascular Dementia with Behavioral Disturbance, Cerebral Atherosclerosis, HTN, Atrial Fib on therapeutic anticoagulation, Malnutrition, admitted to [facility] psych unit for psychiatric stabilization. Consult placed by Dr. Gr for medical management. The patient was seen and evaluated in the recreation room. No reported nursing events. Patient is at baseline level of cognition and function. Hospitalist Physical - Constitutional Vitals: Temp Pulse Resp BP Pulse Ox 98.6 F 70 18 168/82 99 05/25/21 20:34 05/25/21 20:34 05/25/21 20:34 05/25/21 20:34 05/25/21 20:34 General appearance: Present: no acute distress, well-nourished, other (Sleeping easily awakens) - EENT Eyes: Present: PERRL ENT: hearing decreased - Neck Neck: Present: supple - Respiratory Respiratory: bilateral: CTA - Cardiovascular Rhythm: regular Heart Sounds: Present: S1 & S2 - Extremities Extremities: no ischemia Peripheral Pulses: within normal limits - Abdominal General gastrointestinal: soft, non-tender, non-distended - Integumentary Integumentary: Present: clear, dry - Psychiatric Psychiatric: cooperative - Neurologic Neurologic: CNII-XII intact Results - Labs CBC & Chem 7: 05/15/21 14:49 05/15/21 14:49 Labs: Laboratory Last Values WBC 8.0 K/mm3 (4.5-11.0) 05/15/21 14:49 RBC 3.49 M/mm3 (3.65-5.03) L 05/15/21 14:49 Hgb 12.4 gm/dl (11.8-15.2) 05/15/21 14:49 Hct 36.0 % (35.5-45.6) 05/15/21 14:49 MCV 103 fl (84-94) H 05/15/21 14:49 MCH 36 pg (28-32) H 05/15/21 14:49 MCHC 34 % (32-34) 05/15/21 14:49 RDW 13.4 % (13.2-15.2) 05/15/21 14:49 Plt Count 292 K/mm3 (140-440) 05/15/21 14:49 Lymph % (Auto) 6.8 % (13.4-35.0) L 05/15/21 14:49 [place] % (Auto) 6.6 % (0.0-7.3) 05/15/21 14:49 Eos % (Auto) 1.4 % (0.0-4.3) 05/15/21 14:49 Baso % (Auto) 0.6 % (0.0-1.8) 05/15/21 14:49 Lymph # (Auto) 0.5 K/mm3 (1.2-5.4) L 05/15/21 14:49 [place] # (Auto) 0.5 K/mm3 (0.0-0.8) 05/15/21 14:49 Eos # (Auto) 0.1 K/mm3 (0.0-0.4) 05/15/21 14:49 Baso # (Auto) 0.0 K/mm3 (0.0-0.1) 05/15/21 14:49 Seg Neutrophils % 84.6 % (40.0-70.0) H 05/15/21 14:49 Seg Neutrophils # 6.8 K/mm3 (1.8-7.7) 05/15/21 14:49 Sodium 140 mmol/L (137-145) 05/15/21 14:49 Potassium 4.7 mmol/L (3.6-5.0) 05/15/21 14:49 Chloride 101.5 mmol/L (98-107) 05/15/21 14:49 Carbon Dioxide 21 mmol/L (22-30) L 05/15/21 14:49 Anion Gap 22 mmol/L 05/15/21 14:49 BUN 45 mg/dL (9-20) H 05/15/21 14:49 Creatinine 1.8 mg/dL (0.8-1.3) H 05/15/21 14:49 Estimated GFR 36 ml/min 05/15/21 14:49 BUN/Creatinine Ratio 25 % 05/15/21 14:49 Glucose 117 mg/dL (75-100) H 05/15/21 14:49 Hemoglobin A1c 4.9 % (4-6) 05/15/21 14:49 Calcium 9.5 mg/dL (8.4-10.2) 05/15/21 14:49 Total Bilirubin 0.30 mg/dL (0.1-1.2) 05/15/21 14:49 AST 19 units/L (5-40) 05/15/21 14:49 ALT 14 units/L (7-56) 05/15/21 14:49 Alkaline Phosphatase 89 units/L (35-129) 05/15/21 14:49 Total Protein 7.5 g/dL (6.3-8.2) 05/15/21 14:49 Albumin 4.3 g/dL (3.9-5) 05/15/21 14:49 Albumin/Globulin Ratio 1.3 % 05/15/21 14:49 Triglycerides 119 mg/dL (2-149) 05/15/21 14:49 Cholesterol 235 mg/dL (50-199) H 05/15/21 14:49 LDL Cholesterol Direct 161 mg/dL (50-130) H 05/15/21 14:49 HDL Cholesterol 61 mg/dL (40-59) H 05/15/21 14:49 Cholesterol/HDL Ratio 3.85 % 05/15/21 14:49 TSH 6.060 mlU/mL (0.270-4.200) H 05/15/21 14:49 Hernandez/IV: Voiding Method Diaper Active Medications - Current Medications Current Medications: Generic Name Dose Route Start Last Admin Trade Name Freq PRN Reason Stop Dose Admin Alprazolam 0.25 mg 05/15/21 18:00 05/16/21 21:24 Alprazolam 0.25 Mg Tab PO 0.25 mg QPM PRN Administration NERVES Amantadine HCl 100 mg 05/15/21 10:00 05/26/21 10:00 Amantadine 100 Mg Cap PO Not Given QDAY NIELS Apixaban 2.5 mg 05/15/21 14:00 05/26/21 10:00 Apixaban 2.5 Mg Tab PO Not Given Q12HR [facility] Protocol Aspirin 81 mg 05/15/21 10:00 05/26/21 10:00 Aspirin Ec 81 Mg Tab PO Not Given DAILY NIELS Famotidine 20 mg 05/21/21 10:00 05/26/21 10:00 Famotidine 20 Mg Tab PO Not Given DAILY [facility] Hydroxyzine Pamoate 25 mg 05/19/21 09:34 Hydroxyzine Pamoate 25 Mg Cap PO Q6H PRN Anxiety Melatonin 5 mg 05/23/21 22:00 Melatonin 5 Mg Tab PO QHS PRN Sleep Miscellaneous Medication 0 each 05/16/21 17:00 05/26/21 11:32 Carbidopa/Levodopa [Rytary Er 61.25 Mg-245 Mg Cap] PO 61.25 each 0700,1200,1700,2200 NIELS Administration Olanzapine 5 mg 05/23/21 22:00 05/25/21 21:17 Olanzapine 5 Mg Tab PO 5 mg QHS NIELS Administration Polyethylene Glycol 17 gm 05/25/21 16:09 05/25/21 17:08 Polyethylene Glycol 3350 17 Gm Powder PO 17 gm QDAY PRN Administration Constipation Trazodone HCl 100 mg 05/15/21 22:00 05/25/21 21:17 Trazodone 100 Mg Tab PO 100 mg QHS NIELS Administration Valproic Acid 125 mg 05/21/21 10:00 05/26/21 10:00 Valproic Acid 250 Mg/5 Ml Oral Liqd PO Not Given DAILY [facility] Venlafaxine HCl 75 mg 05/18/21 10:00 05/26/21 10:00 Venlafaxine 75 Mg Tab PO Not Given BID [facility] Nutrition/Malnutrition Assess - Dietary Evaluation Nutrition/Malnutrition Findings: Nutrition Notes Start: 05/23/21 17:07 Freq: Status: Active Protocol: Document 05/23/21 17:08 ZAHRAA (Rec: 05/23/21 17:13 [email or web address] [id number]) Nutrition Notes Need for Assessment generated from: LOS Initial or Follow up Assessment Other Pertinent Diagnosis Dementia w/Behavioral Disturbance. Current Diet Regular Diet (since B 05/15). Labs/Tests 05/23: N/A. Pertinent Medications 05/23: Nutritionally unremarkable. 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 Weight Status Appropriate Subjective/Other Information RD consult for LOS assessment. Pt's PO intake of meals has been Good (75-100%), according to ADL notes. Percent of energy/protein needs met: Prescribed Regular Diet provides for energy/protein needs (2,289 Kcal/89 g) during LOS. Burn Absent Trauma Absent GI Symptoms None Food Allergy No Skin Integrity/Comment R-Elbow Bruises. Current % PO Good (75-100%) Minimum of two criteria No #1 Nutrition Diagnosis No nutrition diagnosis at this time Is patient on ventilator? No Is Patient Ambulatory and/or Out of Bed Yes REE-([place]-. [facility]-ambulatory/OOB) [ 1801.800 NUTR.[email or web address]] Kcal/Kg value to use for calculation 31 Approximate Energy Requirements Using 2009 kcal/Kg Calculation Used for Recommendations Kcal/kg Additional Notes Protein: 1-1.2 g/Kg IBW; 81-97 g/day. Fluids: 1 ml/Kcal, or as per MD. Nutrition Intervention Revisit per MD consult or patient Sign Off request: Additional Comments Continue monitoring food tolerance, %PO intake of meals , and BM.
--- NOTE | 2021-05-26 12:57 | Progress Note ---
Assessment and Plan - Patient Problems (1) Atrial fibrillation Current Visit: Yes Status: Acute Plan to address problem: Continue therapeutic anticoagulation, supportive care, outpatient primary care physician follow-up. (2) Vascular dementia with behavior disturbance Current Visit: Yes Status: Acute Plan to address problem: Verbal prompting, verbal redirection, benzodiazepine therapy as clinical indicated. (3) Cerebral atherosclerosis Current Visit: Yes Status: Acute Plan to address problem: Risk factor reduction, antiplatelet therapy as clinically indicated, supportive care. Continue medical management. (4) Malnutrition Current Visit: Yes Status: Acute Qualifiers: Protein-calorie malnutrition severity: moderate Plan to address problem: Increase protein intake, dietary supplementation. (5) Advance care planning Current Visit: Yes Status: Acute Plan to address problem: Disease education done, care plan discussed, diagnoses discussed, prognosis discussed, patient is full code. Patient knowledges understanding and agreed w ith care plan, +30 minutes. History Interval history: 80 YO Male with Vascular Dementia with Behavioral Disturbance, Cerebral Atherosclerosis, HTN, Atrial Fib on therapeutic anticoagulation, Malnutrition, admitted to [facility] psych unit for psychiatric stabilization. Consult placed by Dr. Gr for medical management. The patient was seen and evaluated in the recreation room. No reported nursing events. Patient is at baseline level of cognition and function. Hospitalist Physical - Constitutional Vitals: Temp Pulse Resp BP Pulse Ox 98.6 F 70 18 168/82 99 05/25/21 20:34 05/25/21 20:34 05/25/21 20:34 05/25/21 20:34 05/25/21 20:34 General appearance: Present: no acute distress, well-nourished, other (Sleeping easily awakens) - EENT Eyes: Present: PERRL ENT: hearing decreased - Neck Neck: Present: supple - Respiratory Respiratory: bilateral: CTA - Cardiovascular Rhythm: irregularly irregular Heart Sounds: Present: S1 & S2 - Extremities Extremities: no ischemia Peripheral Pulses: within normal limits - Abdominal General gastrointestinal: soft, non-tender, non-distended - Integumentary Integumentary: Present: clear, dry - Psychiatric Psychiatric: cooperative - Neurologic Neurologic: CNII-XII intact Results - Labs CBC & Chem 7: 05/15/21 14:49 05/15/21 14:49 Labs: Laboratory Last Values WBC 8.0 K/mm3 (4.5-11.0) 05/15/21 14:49 RBC 3.49 M/mm3 (3.65-5.03) L 05/15/21 14:49 Hgb 12.4 gm/dl (11.8-15.2) 05/15/21 14:49 Hct 36.0 % (35.5-45.6) 05/15/21 14:49 MCV 103 fl (84-94) H 05/15/21 14:49 MCH 36 pg (28-32) H 05/15/21 14:49 MCHC 34 % (32-34) 05/15/21 14:49 RDW 13.4 % (13.2-15.2) 05/15/21 14:49 Plt Count 292 K/mm3 (140-440) 05/15/21 14:49 Lymph % (Auto) 6.8 % (13.4-35.0) L 05/15/21 14:49 [place] % (Auto) 6.6 % (0.0-7.3) 05/15/21 14:49 Eos % (Auto) 1.4 % (0.0-4.3) 05/15/21 14:49 Baso % (Auto) 0.6 % (0.0-1.8) 05/15/21 14:49 Lymph # (Auto) 0.5 K/mm3 (1.2-5.4) L 05/15/21 14:49 [place] # (Auto) 0.5 K/mm3 (0.0-0.8) 05/15/21 14:49 Eos # (Auto) 0.1 K/mm3 (0.0-0.4) 05/15/21 14:49 Baso # (Auto) 0.0 K/mm3 (0.0-0.1) 05/15/21 14:49 Seg Neutrophils % 84.6 % (40.0-70.0) H 05/15/21 14:49 Seg Neutrophils # 6.8 K/mm3 (1.8-7.7) 05/15/21 14:49 Sodium 140 mmol/L (137-145) 05/15/21 14:49 Potassium 4.7 mmol/L (3.6-5.0) 05/15/21 14:49 Chloride 101.5 mmol/L (98-107) 05/15/21 14:49 Carbon Dioxide 21 mmol/L (22-30) L 05/15/21 14:49 Anion Gap 22 mmol/L 05/15/21 14:49 BUN 45 mg/dL (9-20) H 05/15/21 14:49 Creatinine 1.8 mg/dL (0.8-1.3) H 05/15/21 14:49 Estimated GFR 36 ml/min 05/15/21 14:49 BUN/Creatinine Ratio 25 % 05/15/21 14:49 Glucose 117 mg/dL (75-100) H 05/15/21 14:49 Hemoglobin A1c 4.9 % (4-6) 05/15/21 14:49 Calcium 9.5 mg/dL (8.4-10.2) 05/15/21 14:49 Total Bilirubin 0.30 mg/dL (0.1-1.2) 05/15/21 14:49 AST 19 units/L (5-40) 05/15/21 14:49 ALT 14 units/L (7-56) 05/15/21 14:49 Alkaline Phosphatase 89 units/L (35-129) 05/15/21 14:49 Total Protein 7.5 g/dL (6.3-8.2) 05/15/21 14:49 Albumin 4.3 g/dL (3.9-5) 05/15/21 14:49 Albumin/Globulin Ratio 1.3 % 05/15/21 14:49 Triglycerides 119 mg/dL (2-149) 05/15/21 14:49 Cholesterol 235 mg/dL (50-199) H 05/15/21 14:49 LDL Cholesterol Direct 161 mg/dL (50-130) H 05/15/21 14:49 HDL Cholesterol 61 mg/dL (40-59) H 05/15/21 14:49 Cholesterol/HDL Ratio 3.85 % 05/15/21 14:49 TSH 6.060 mlU/mL (0.270-4.200) H 05/15/21 14:49 Hernandez/IV: Voiding Method Diaper Active Medications - Current Medications Current Medications: Generic Name Dose Route Start Last Admin Trade Name Freq PRN Reason Stop Dose Admin Alprazolam 0.25 mg 05/15/21 18:00 05/16/21 21:24 Alprazolam 0.25 Mg Tab PO 0.25 mg QPM PRN Administration NERVES Amantadine HCl 100 mg 05/15/21 10:00 05/26/21 10:00 Amantadine 100 Mg Cap PO Not Given QDAY NIELS Apixaban 2.5 mg 05/15/21 14:00 05/26/21 10:00 Apixaban 2.5 Mg Tab PO Not Given Q12HR [facility] Protocol Aspirin 81 mg 05/15/21 10:00 05/26/21 10:00 Aspirin Ec 81 Mg Tab PO Not Given DAILY [facility] Famotidine 20 mg 05/21/21 10:00 05/26/21 10:00 Famotidine 20 Mg Tab PO Not Given DAILY [facility] Hydroxyzine Pamoate 25 mg 05/19/21 09:34 Hydroxyzine Pamoate 25 Mg Cap PO Q6H PRN Anxiety Melatonin 5 mg 05/23/21 22:00 Melatonin 5 Mg Tab PO QHS PRN Sleep Miscellaneous Medication 0 each 05/16/21 17:00 05/26/21 11:32 Carbidopa/Levodopa [Rytary Er 61.25 Mg-245 Mg Cap] PO 61.25 each 0700,1200,1700,2200 NIELS Administration Olanzapine 5 mg 05/23/21 22:00 05/25/21 21:17 Olanzapine 5 Mg Tab PO 5 mg QHS NIELS Administration Polyethylene Glycol 17 gm 05/25/21 16:09 05/25/21 17:08 Polyethylene Glycol 3350 17 Gm Powder PO 17 gm QDAY PRN Administration Constipation Trazodone HCl 100 mg 05/15/21 22:00 05/25/21 21:17 Trazodone 100 Mg Tab PO 100 mg QHS NIELS Administration Valproic Acid 125 mg 05/21/21 10:00 05/26/21 10:00 Valproic Acid 250 Mg/5 Ml Oral Liqd PO Not Given DAILY [facility] Venlafaxine HCl 75 mg 05/18/21 10:00 05/26/21 10:00 Venlafaxine 75 Mg Tab PO Not Given BID [facility] Nutrition/Malnutrition Assess - Dietary Evaluation Nutrition/Malnutrition Findings: Nutrition Notes Start: 05/23/21 17:07 Freq: Status: Active Protocol: Document 05/23/21 17:08 ZAHRAA (Rec: 05/23/21 17:13 [email or web address] [id number]) Nutrition Notes Need for Assessment generated from: LOS Initial or Follow up Assessment Other Pertinent Diagnosis Dementia w/Behavioral Disturbance. Current Diet Regular Diet (since B 05/15). Labs/Tests 05/23: N/A. Pertinent Medications 05/23: Nutritionally unremarkable. 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 Weight Status Appropriate Subjective/Other Information RD consult for LOS assessment. Pt's PO intake of meals has been Good (75-100%), according to ADL notes. Percent of energy/protein needs met: Prescribed Regular Diet provides for energy/protein needs (2,289 Kcal/89 g) during LOS. Burn Absent Trauma Absent GI Symptoms None Food Allergy No Skin Integrity/Comment R-Elbow Bruises. Current % PO Good (75-100%) Minimum of two criteria No #1 Nutrition Diagnosis No nutrition diagnosis at this time Is patient on ventilator? No Is Patient Ambulatory and/or Out of Bed Yes REE-([place]-. [facility]-ambulatory/OOB) [ 1801.800 NUTR.[id number]] Kcal/Kg value to use for calculation 31 Approximate Energy Requirements Using 2009 kcal/Kg Calculation Used for Recommendations Kcal/kg Additional Notes Protein: 1-1.2 g/Kg IBW; 81-97 g/day. Fluids: 1 ml/Kcal, or as per MD. Nutrition Intervention Revisit per MD consult or patient Sign Off request: Additional Comments Continue monitoring food tolerance, %PO intake of meals , and BM.
--- NOTE | 2021-05-26 12:58 | Progress Note ---
Assessment and Plan - Patient Problems (1) Atrial fibrillation Current Visit: Yes Status: Acute Plan to address problem: Continue therapeutic anticoagulation, supportive care, outpatient primary care physician follow-up. (2) Vascular dementia with behavior disturbance Current Visit: Yes Status: Acute Plan to address problem: Verbal prompting, verbal redirection, benzodiazepine therapy as clinical indicated. (3) Cerebral atherosclerosis Current Visit: Yes Status: Acute Plan to address problem: Risk factor reduction, antiplatelet therapy as clinically indicated, supportive care. Continue medical management. (4) Malnutrition Current Visit: Yes Status: Acute Qualifiers: Protein-calorie malnutrition severity: moderate Plan to address problem: Increase protein intake, dietary supplementation. (5) Advance care planning Current Visit: Yes Status: Acute Plan to address problem: Disease education done, care plan discussed, diagnoses discussed, prognosis discussed, patient is full code. Patient knowledges understanding and agreed w ith care plan, +30 minutes. History Interval history: 80 YO Male with Vascular Dementia with Behavioral Disturbance, Cerebral Atherosclerosis, HTN, Atrial Fib on therapeutic anticoagulation, Malnutrition, admitted to [facility] for psychiatric stabilization. Consult placed by Dr. Gr for medical management. The patient was seen and evaluated in the recreation room. No reported nursing events. Patient is at baseline level of cognition and function. Hospitalist Physical - Constitutional Vitals: Temp Pulse Resp BP Pulse Ox 98.6 F 70 18 168/82 99 05/25/21 20:34 05/25/21 20:34 05/25/21 20:34 05/25/21 20:34 05/25/21 20:34 General appearance: Present: no acute distress, well-nourished, other (Sleeping easily awakens) - EENT Eyes: Present: PERRL ENT: hearing decreased - Neck Neck: Present: supple - Respiratory Respiratory effort: normal Respiratory: bilateral: CTA - Cardiovascular Rhythm: irregularly irregular - Extremities Extremities: no ischemia Peripheral Pulses: within normal limits - Abdominal General gastrointestinal: soft, non-tender, non-distended - Integumentary Integumentary: Present: clear, dry - Psychiatric Psychiatric: cooperative - Neurologic Neurologic: CNII-XII intact Results - Labs CBC & Chem 7: 05/15/21 14:49 05/15/21 14:49 Labs: Laboratory Last Values WBC 8.0 K/mm3 (4.5-11.0) 05/15/21 14:49 RBC 3.49 M/mm3 (3.65-5.03) L 05/15/21 14:49 Hgb 12.4 gm/dl (11.8-15.2) 05/15/21 14:49 Hct 36.0 % (35.5-45.6) 05/15/21 14:49 MCV 103 fl (84-94) H 05/15/21 14:49 MCH 36 pg (28-32) H 05/15/21 14:49 MCHC 34 % (32-34) 05/15/21 14:49 RDW 13.4 % (13.2-15.2) 05/15/21 14:49 Plt Count 292 K/mm3 (140-440) 05/15/21 14:49 Lymph % (Auto) 6.8 % (13.4-35.0) L 05/15/21 14:49 [place] % (Auto) 6.6 % (0.0-7.3) 05/15/21 14:49 Eos % (Auto) 1.4 % (0.0-4.3) 05/15/21 14:49 Baso % (Auto) 0.6 % (0.0-1.8) 05/15/21 14:49 Lymph # (Auto) 0.5 K/mm3 (1.2-5.4) L 05/15/21 14:49 [place] # (Auto) 0.5 K/mm3 (0.0-0.8) 05/15/21 14:49 Eos # (Auto) 0.1 K/mm3 (0.0-0.4) 05/15/21 14:49 Baso # (Auto) 0.0 K/mm3 (0.0-0.1) 05/15/21 14:49 Seg Neutrophils % 84.6 % (40.0-70.0) H 05/15/21 14:49 Seg Neutrophils # 6.8 K/mm3 (1.8-7.7) 05/15/21 14:49 Sodium 140 mmol/L (137-145) 05/15/21 14:49 Potassium 4.7 mmol/L (3.6-5.0) 05/15/21 14:49 Chloride 101.5 mmol/L (98-107) 05/15/21 14:49 Carbon Dioxide 21 mmol/L (22-30) L 05/15/21 14:49 Anion Gap 22 mmol/L 05/15/21 14:49 BUN 45 mg/dL (9-20) H 05/15/21 14:49 Creatinine 1.8 mg/dL (0.8-1.3) H 05/15/21 14:49 Estimated GFR 36 ml/min 05/15/21 14:49 BUN/Creatinine Ratio 25 % 05/15/21 14:49 Glucose 117 mg/dL (75-100) H 05/15/21 14:49 Hemoglobin A1c 4.9 % (4-6) 05/15/21 14:49 Calcium 9.5 mg/dL (8.4-10.2) 05/15/21 14:49 Total Bilirubin 0.30 mg/dL (0.1-1.2) 05/15/21 14:49 AST 19 units/L (5-40) 05/15/21 14:49 ALT 14 units/L (7-56) 05/15/21 14:49 Alkaline Phosphatase 89 units/L (35-129) 05/15/21 14:49 Total Protein 7.5 g/dL (6.3-8.2) 05/15/21 14:49 Albumin 4.3 g/dL (3.9-5) 05/15/21 14:49 Albumin/Globulin Ratio 1.3 % 05/15/21 14:49 Triglycerides 119 mg/dL (2-149) 05/15/21 14:49 Cholesterol 235 mg/dL (50-199) H 05/15/21 14:49 LDL Cholesterol Direct 161 mg/dL (50-130) H 05/15/21 14:49 HDL Cholesterol 61 mg/dL (40-59) H 05/15/21 14:49 Cholesterol/HDL Ratio 3.85 % 05/15/21 14:49 TSH 6.060 mlU/mL (0.270-4.200) H 05/15/21 14:49 Hernandez/IV: Voiding Method Diaper Active Medications - Current Medications Current Medications: Generic Name Dose Route Start Last Admin Trade Name Freq PRN Reason Stop Dose Admin Alprazolam 0.25 mg 05/15/21 18:00 05/16/21 21:24 Alprazolam 0.25 Mg Tab PO 0.25 mg QPM PRN Administration NERVES Amantadine HCl 100 mg 05/15/21 10:00 05/26/21 10:00 Amantadine 100 Mg Cap PO Not Given QDAY [facility] Apixaban 2.5 mg 05/15/21 14:00 05/26/21 10:00 Apixaban 2.5 Mg Tab PO Not Given Q12HR [facility] Protocol Aspirin 81 mg 05/15/21 10:00 05/26/21 10:00 Aspirin Ec 81 Mg Tab PO Not Given DAILY [facility] Famotidine 20 mg 05/21/21 10:00 05/26/21 10:00 Famotidine 20 Mg Tab PO Not Given DAILY [facility] Hydroxyzine Pamoate 25 mg 05/19/21 09:34 Hydroxyzine Pamoate 25 Mg Cap PO Q6H PRN Anxiety Melatonin 5 mg 05/23/21 22:00 Melatonin 5 Mg Tab PO QHS PRN Sleep Miscellaneous Medication 0 each 05/16/21 17:00 05/26/21 11:32 Carbidopa/Levodopa [Rytary Er 61.25 Mg-245 Mg Cap] PO 61.25 each 0700,1200,1700,2200 NIELS Administration Olanzapine 5 mg 05/23/21 22:00 05/25/21 21:17 Olanzapine 5 Mg Tab PO 5 mg QHS NIELS Administration Polyethylene Glycol 17 gm 05/25/21 16:09 05/25/21 17:08 Polyethylene Glycol 3350 17 Gm Powder PO 17 gm QDAY PRN Administration Constipation Trazodone HCl 100 mg 05/15/21 22:00 05/25/21 21:17 Trazodone 100 Mg Tab PO 100 mg QHS [facility] Administration Valproic Acid 125 mg 05/21/21 10:00 05/26/21 10:00 Valproic Acid 250 Mg/5 Ml Oral Liqd PO Not Given DAILY [facility] Venlafaxine HCl 75 mg 05/18/21 10:00 05/26/21 10:00 Venlafaxine 75 Mg Tab PO Not Given BID [facility] Nutrition/Malnutrition Assess - Dietary Evaluation Nutrition/Malnutrition Findings: Nutrition Notes Start: 05/23/21 17:07 Freq: Status: Active Protocol: Document 05/23/21 17:08 ZAHRAA (Rec: 05/23/21 17:13 ZAHRAA [id number]) Nutrition Notes Need for Assessment generated from: LOS Initial or Follow up Assessment Other Pertinent Diagnosis Dementia w/Behavioral Disturbance. Current Diet Regular Diet (since B 05/15). Labs/Tests 05/23: N/A. Pertinent Medications 05/23: Nutritionally unremarkable. Height 6 ft Weight 64.8 kg [place] Body Weight (kg) 80.90 BMI 19.3 Intake Prior to Admission Good Weight change and time frame Pt states being unsure if loss body weight [employer]. Weight Status Appropriate Subjective/Other Information RD consult for LOS assessment. Pt's PO intake of meals has been Good (75-100%), according to ADL notes. Percent of energy/protein needs met: Prescribed Regular Diet provides for energy/protein needs (2,289 Kcal/89 g) during LOS. Burn Absent Trauma Absent GI Symptoms None Food Allergy No Skin Integrity/Comment R-Elbow Bruises. Current % PO Good (75-100%) Minimum of two criteria No #1 Nutrition Diagnosis No nutrition diagnosis at this time Is patient on ventilator? No Is Patient Ambulatory and/or Out of Bed Yes REE-(Mathias-St. Jeor-ambulatory/OOB) [ 1801.800 NUTR.MSJOOB] Kcal/Kg value to use for calculation 31 Approximate Energy Requirements Using 2009 kcal/Kg Calculation Used for Recommendations Kcal/kg Additional Notes Protein: 1-1.2 g/Kg IBW; 81-97 g/day. Fluids: 1 ml/Kcal, or as per MD. Nutrition Intervention Revisit per MD consult or patient Sign Off request: Additional Comments Continue monitoring food tolerance, %PO intake of meals , and BM.
[2021-05-26] MEDS: traZODone 100 MG TAB PO SCH (21:18)
[2021-05-27] MEDS: hydrOXYzine PAMOATE 25 MG CAP PO PRN (00:09)
[2021-05-27] MEDS: LEVODOPA PO SCH ×4 (06:50→21:18)
[2021-05-27] MEDS: CARBIDOPA PO SCH ×4 (06:50→21:18)
--- NOTE | 2021-05-27 09:06 | Progress Note ---
Subjective Date of service: 05/27/21 Principal diagnosis: Dementia with Behavioral disturbance Subjective Comment: 05/27/21: The patient was seen this morning. He reports doing well. The patient denies depression and denies suicidal/homicidal ideation. The patient reports having intermittent auditory hallucinations "everyday." 05/26/21:The patient was seen this at breakfast. He states he is doing fine. He reports sleep and appetite as good. The patient denies depression and denies suicidal/homicidal ideation. The patient reports having intermittent auditory hallucinations " it's part of my condition." 05/25/21: The patient was seen this morning. He states he is doing fine. He reports sleep and appetite as good. The patient denies depression and denies suicidal/homicidal ideation. The patient reports having intermittent auditory hallucinations " whatever is on the screen." 05/24/21:The patient was seen today. He states he feels fine. The patient presents with constricted affect. He denies depression and denies suicidal/homicidal ideation. The patient reports having intermittent auditory hallucinations but unable to state what the voice is saying. Denies visual hallucinations. No aggressive behavior reported. 05/22 The patient was seen today. He is sleeping, but easily arouses. He says he's cold. I pulled the blanket up on the patient. He thanks me. He says he slept well. He denies SI/HI. The patient says "I'm ready to go home." 05/21 Per nurse note: Patient's bed alarm went off. Tech found patient with both legs over railing of bed. He was rocking back and forth to get himself out of bed. When staff attempted to assist him he became angry and tried to kick staff. He was confused and thought his daughter was in his room. Staff tried to reorient patient and help him calm down but he continued to call out and try to get out of bed. This technical writer and editor and tech asked patient how we could help him. He yelled and tried to kick and hit staff with his fists. Staff had to hold his ankles for a short time to keep him from kicking and getting out of bed. Patient yelled that he could walk and that he wanted to kill this technical writer and editor. Each time staff moved away from patient he would begin to try to throw his legs over the railing and rock to get up. Hospitalist was called and order received for Geodon 10 mg IM for agitation. Patient continually threatening staff with harm and threatening to get staff fired. After receiving Geodon the patient slowly relaxed and was able to sleep. Will continue to monitor patient for safety. The patient was seen today. He is lying in bed. He easily arouses. He is confused and shocked to hear that he is in the hospital. He replies "the hospital?" when I inform him. He says he slept well. He denies SI/HI. When asked about any hallucinations, the patient replies "I don't think so." The patient has episodes of combativeness, and agitation as reported by the nursing staff. 05/20 The patient was seen today. He is sleeping. He easily arouses. He is confused. He believes he's "at the front entrance." The patient denies SI/HI. When asked about hallucinations, the patient replies "not this time, but I've been asleep very deeply." 05/19/21: The patient was seen eating breakfast. He states he is doing ok. He reports sleep and appetite as fair. The patient presents with constricted affect. He denies being depressed, rates anxiety as 9/10. He denies any current suicidal/homicidal ideation but admits to auditory hallucinations " voices don't make sense." 05/18/21:The patient was seen this morning. He reports doing well. The patient is tearful and depressed. He reports having auditory hallucinations " I hear it everyday, it's like hearing a show on the TV." 05/17/21: The patient was seen this morning. He asked time it was " I'm ready for breakfast." The patient states sleep and appetite as ok. He denies any current suicidal/homicidal ideation and when asked about AVHs he states " I don't know." 05/16/21: The patient was seen this morning with his head downward and poor eye contact. The patient is confused. He states " I want to take a nap, that's all I want to do." He denies any current suicidal/homicidal ideation and denies hallucinations. per nurse, "pt is alert and oriented to person, irritable, combative, refused medication." REVIEW OF SYSTEMS MENTAL STATUS EXAMINATION Assessment and Plan (1) Dementia with behavioral disturbance Treatment Plan Patient admitted for inpatient psychiatric evaluation, medication adjustment and close monitoring The patient's behavior, mood, sleep and appetite will be closely monitored. Patient enrolled in individual and group therapeutic sessions and encouraged to attend. Patient provided with a safe and structured environment. Patient's physical health needs will be addressed by the Hospitalist. Hospitalist Consulted Labs including CBC, CMP, Lipid profile and Hemoglobin A1C levels ordered for baseline reference Social Assessment will be completed and the [employer] will work with patient and family to ensure a suitable and safe disposition Medication adjustment will be made as clinically indicated Continue Valproic Acid 125mg po daily yesterday Continue Olanzapine 5mg po daily Usual Wellness Holiness/Preservation: - Start Trazodone 50 mg po QHS & 50 mg po QHS PRN between 10 PM & 2 AM for insomnia - Start Melatonin 5 mg po QHS to promote circadian rhythm The patient agreed on the treatment plan, understood the risk, benefit, alternative treatment, potential consequence of no treatment, and gave informed consent. Estimated days: 5 Post hospital care: primary care provider, psychiatric provider Case staffed with Dr. Morocho Medications and Allergies Mental Status Exam Medications and Allergies Allergies Allergy/AdvReac Type Severity Reaction Status Date / Time ibuprofen Allergy Anaphylaxis Verified 05/24/21 14:33 Home Medications Medication Instructions Recorded Confirmed Last Taken Type ALPRAZolam [Xanax TAB] 0.25 mg PO UNK PRN 05/15/21 05/15/21 Unknown History Acyclovir [Zovirax Tab] 400 mg PO BID 05/15/21 05/15/21 Unknown History Apixaban [Eliquis] 2.5 mg PO QHS 05/15/21 05/15/21 Unknown History Aspirin [[place] Aspirin EC] 81 mg PO DAILY 05/15/21 05/15/21 Unknown History Carbidopa/Levodopa [Rytary ER 1 each PO QID 05/15/21 05/16/21 Unknown History 61.25 mg-245 mg Cap] Famotidine [Pepcid] 40 mg PO DAILY 05/15/21 05/15/21 Unknown History Fluticasone/Salmeterol [Advair 1 each IH UNK 05/15/21 05/15/21 Unknown History 250-50 Diskus] Midodrine [Proamatine] 5 mg PO QDAY 05/15/21 05/15/21 Unknown History OLANzapine [ZyPREXA] 2.5 mg PO QHS 05/15/21 05/15/21 Unknown History Pimavanserin Tartrate [Nuplazid] 34 mg PO UNK 05/15/21 05/15/21 Unknown History Venlafaxine [Effexor] 75 mg PO DAILY 05/15/21 05/15/21 Unknown History amantadine HCL [Amantadine] 100 mg PO QDAY 05/15/21 05/15/21 Unknown History traZODone [Desyrel] 100 mg PO QHS 05/15/21 05/15/21 Unknown History Active Meds: Active Medications Alprazolam (Alprazolam 0.25 Mg Tab) 0.25 mg PO QPM PRN PRN Reason: NERVES Last Admin: 05/16/21 21:24 Dose: 0.25 mg Amantadine HCl (Amantadine 100 Mg Cap) 100 mg PO QDAY [facility] Last Admin: 05/26/21 10:00 Dose: Not Given Apixaban (Apixaban 2.5 Mg Tab) 2.5 mg PO Q12HR [facility]; Protocol Last Admin: 05/26/21 21:18 Dose: 2.5 mg Aspirin (Aspirin Ec 81 Mg Tab) 81 mg PO DAILY [facility] Last Admin: 05/26/21 10:00 Dose: Not Given Famotidine (Famotidine 20 Mg Tab) 20 mg PO DAILY [facility] Last Admin: 05/26/21 10:00 Dose: Not Given Hydroxyzine Pamoate (Hydroxyzine Pamoate 25 Mg Cap) 25 mg PO Q6H PRN PRN Reason: Anxiety Last Admin: 05/27/21 00:09 Dose: 25 mg Melatonin (Melatonin 5 Mg Tab) 5 mg PO QHS PRN PRN Reason: Sleep Miscellaneous Medication (Carbidopa/Levodopa [Rytary Er 61.25 Mg-245 Mg Cap]) 0 each PO 0700,1200,1700,2200 [facility] Last Admin: 05/27/21 06:50 Dose: 2 each Olanzapine (Olanzapine 5 Mg Tab) 5 mg PO QHS [facility] Last Admin: 05/26/21 21:18 Dose: 5 mg Polyethylene Glycol (Polyethylene Glycol 3350 17 Gm Powder) 17 gm PO QDAY PRN PRN Reason: Constipation Last Admin: 05/25/21 17:08 Dose: 17 gm Trazodone HCl (Trazodone 100 Mg Tab) 100 mg PO QHS [facility] Last Admin: 05/26/21 21:18 Dose: 100 mg Valproic Acid (Valproic Acid 250 Mg/5 Ml Oral Liqd) 125 mg PO DAILY [facility] Last Admin: 05/26/21 10:00 Dose: Not Given Venlafaxine HCl (Venlafaxine 75 Mg Tab) 75 mg PO BID [facility] Last Admin: 05/26/21 21:18 Dose: 75 mg Results - Results Labs/Vitals: Laboratory Last Values WBC 8.0 K/mm3 (4.5-11.0) 05/15/21 14:49 RBC 3.49 M/mm3 (3.65-5.03) L 05/15/21 14:49 Hgb 12.4 gm/dl (11.8-15.2) 05/15/21 14:49 Hct 36.0 % (35.5-45.6) 05/15/21 14:49 MCV 103 fl (84-94) H 05/15/21 14:49 MCH 36 pg (28-32) H 05/15/21 14:49 MCHC 34 % (32-34) 05/15/21 14:49 RDW 13.4 % (13.2-15.2) 05/15/21 14:49 Plt Count 292 K/mm3 (140-440) 05/15/21 14:49 Lymph % (Auto) 6.8 % (13.4-35.0) L 05/15/21 14:49 [place] % (Auto) 6.6 % (0.0-7.3) 05/15/21 14:49 Eos % (Auto) 1.4 % (0.0-4.3) 05/15/21 14:49 Baso % (Auto) 0.6 % (0.0-1.8) 05/15/21 14:49 Lymph # (Auto) 0.5 K/mm3 (1.2-5.4) L 05/15/21 14:49 [place] # (Auto) 0.5 K/mm3 (0.0-0.8) 05/15/21 14:49 Eos # (Auto) 0.1 K/mm3 (0.0-0.4) 05/15/21 14:49 Baso # (Auto) 0.0 K/mm3 (0.0-0.1) 05/15/21 14:49 Seg Neutrophils % 84.6 % (40.0-70.0) H 05/15/21 14:49 Seg Neutrophils # 6.8 K/mm3 (1.8-7.7) 05/15/21 14:49 Sodium 140 mmol/L (137-145) 05/15/21 14:49 Potassium 4.7 mmol/L (3.6-5.0) 05/15/21 14:49 Chloride 101.5 mmol/L (98-107) 05/15/21 14:49 Carbon Dioxide 21 mmol/L (22-30) L 05/15/21 14:49 Anion Gap 22 mmol/L 05/15/21 14:49 BUN 45 mg/dL (9-20) H 05/15/21 14:49 Creatinine 1.8 mg/dL (0.8-1.3) H 05/15/21 14:49 Estimated GFR 36 ml/min 05/15/21 14:49 BUN/Creatinine Ratio 25 % 05/15/21 14:49 Glucose 117 mg/dL (75-100) H 05/15/21 14:49 Hemoglobin A1c 4.9 % (4-6) 05/15/21 14:49 Calcium 9.5 mg/dL (8.4-10.2) 05/15/21 14:49 Total Bilirubin 0.30 mg/dL (0.1-1.2) 05/15/21 14:49 AST 19 units/L (5-40) 05/15/21 14:49 ALT 14 units/L (7-56) 05/15/21 14:49 Alkaline Phosphatase 89 units/L (35-129) 05/15/21 14:49 Total Protein 7.5 g/dL (6.3-8.2) 05/15/21 14:49 Albumin 4.3 g/dL (3.9-5) 05/15/21 14:49 Albumin/Globulin Ratio 1.3 % 05/15/21 14:49 Triglycerides 119 mg/dL (2-149) 05/15/21 14:49 Cholesterol 235 mg/dL (50-199) H 05/15/21 14:49 LDL Cholesterol Direct 161 mg/dL (50-130) H 05/15/21 14:49 HDL Cholesterol 61 mg/dL (40-59) H 05/15/21 14:49 Cholesterol/HDL Ratio 3.85 % 05/15/21 14:49 TSH 6.060 mlU/mL (0.270-4.200) H 05/15/21 14:49 Last Vital Signs Temp 98.6 F 05/25/21 20:34 Pulse 70 05/25/21 20:34 Resp 18 05/25/21 20:34 BP 168/82 05/25/21 20:34 Pulse Ox 99 05/25/21 20:34
[2021-05-27] MEDS: APIXABAN 2.5 MG TAB PO SCH ×2 (10:51→21:17)
[2021-05-27] MEDS: FAMOTIDINE 20 MG TAB PO SCH (10:51)
[2021-05-27] MEDS: ASPIRIN EC 81 MG TAB PO SCH (10:51)
[2021-05-27] MEDS: VALPROIC ACID 250 MG/5 ML ORAL LIQD PO SCH (10:51)
[2021-05-27] MEDS: VENLAFAXINE 75 MG TAB PO SCH ×2 (10:51→21:18)
--- NOTE | 2021-05-27 13:55 | Progress Note ---
Assessment and Plan Assessment and plan: (1) Atrial fibrillation Continue therapeutic anticoagulation, supportive care, outpatient primary care physician follow-up. (2) Vascular dementia with behavior disturbance Verbal prompting, verbal redirection, benzodiazepine therapy as clinical indicated. (3) Cerebral atherosclerosis Risk factor reduction, antiplatelet therapy as clinically indicated, supportive care. Continue medical management. (4) Malnutrition Increase protein intake, dietary supplementation. History Interval history: No new issues overnight Hospitalist Physical - Constitutional Vitals: Temp Pulse Resp BP Pulse Ox 97.5 F L 83 18 142/83 97 05/27/21 10:41 05/27/21 10:41 05/27/21 10:41 05/27/21 10:41 05/27/21 10:41 General appearance: Present: no acute distress, well-nourished, other (Sleeping easily awakens) - EENT Eyes: Present: PERRL, EOM intact ENT: hearing intact, clear oral mucosa, dentition normal - Neck Neck: Present: supple, normal ROM - Respiratory Respiratory effort: normal Respiratory: bilateral: CTA - Cardiovascular Rhythm: regular Heart Sounds: Present: S1 & S2. Absent: gallop, rub - Extremities Extremities: no ischemia, No edema, Full ROM - Abdominal General gastrointestinal: soft, non-tender, non-distended, normal bowel sounds - Integumentary Integumentary: Present: clear, warm, dry - Neurologic Neurologic: CNII-XII intact, moves all extremities Results - Labs CBC & Chem 7: 05/15/21 14:49 05/15/21 14:49 Labs: Laboratory Last Values WBC 8.0 K/mm3 (4.5-11.0) 05/15/21 14:49 RBC 3.49 M/mm3 (3.65-5.03) L 05/15/21 14:49 Hgb 12.4 gm/dl (11.8-15.2) 05/15/21 14:49 Hct 36.0 % (35.5-45.6) 05/15/21 14:49 MCV 103 fl (84-94) H 05/15/21 14:49 MCH 36 pg (28-32) H 05/15/21 14:49 MCHC 34 % (32-34) 05/15/21 14:49 RDW 13.4 % (13.2-15.2) 05/15/21 14:49 Plt Count 292 K/mm3 (140-440) 05/15/21 14:49 Lymph % (Auto) 6.8 % (13.4-35.0) L 05/15/21 14:49 Cassia % (Auto) 6.6 % (0.0-7.3) 05/15/21 14:49 Eos % (Auto) 1.4 % (0.0-4.3) 05/15/21 14:49 Baso % (Auto) 0.6 % (0.0-1.8) 05/15/21 14:49 Lymph # (Auto) 0.5 K/mm3 (1.2-5.4) L 05/15/21 14:49 Cassia # (Auto) 0.5 K/mm3 (0.0-0.8) 05/15/21 14:49 Eos # (Auto) 0.1 K/mm3 (0.0-0.4) 05/15/21 14:49 Baso # (Auto) 0.0 K/mm3 (0.0-0.1) 05/15/21 14:49 Seg Neutrophils % 84.6 % (40.0-70.0) H 05/15/21 14:49 Seg Neutrophils # 6.8 K/mm3 (1.8-7.7) 05/15/21 14:49 Sodium 140 mmol/L (137-145) 05/15/21 14:49 Potassium 4.7 mmol/L (3.6-5.0) 05/15/21 14:49 Chloride 101.5 mmol/L (98-107) 05/15/21 14:49 Carbon Dioxide 21 mmol/L (22-30) L 05/15/21 14:49 Anion Gap 22 mmol/L 05/15/21 14:49 BUN 45 mg/dL (9-20) H 05/15/21 14:49 Creatinine 1.8 mg/dL (0.8-1.3) H 05/15/21 14:49 Estimated GFR 36 ml/min 05/15/21 14:49 BUN/Creatinine Ratio 25 % 05/15/21 14:49 Glucose 117 mg/dL (75-100) H 05/15/21 14:49 Hemoglobin A1c 4.9 % (4-6) 05/15/21 14:49 Calcium 9.5 mg/dL (8.4-10.2) 05/15/21 14:49 Total Bilirubin 0.30 mg/dL (0.1-1.2) 05/15/21 14:49 AST 19 units/L (5-40) 05/15/21 14:49 ALT 14 units/L (7-56) 05/15/21 14:49 Alkaline Phosphatase 89 units/L (35-129) 05/15/21 14:49 Total Protein 7.5 g/dL (6.3-8.2) 05/15/21 14:49 Albumin 4.3 g/dL (3.9-5) 05/15/21 14:49 Albumin/Globulin Ratio 1.3 % 05/15/21 14:49 Triglycerides 119 mg/dL (2-149) 05/15/21 14:49 Cholesterol 235 mg/dL (50-199) H 05/15/21 14:49 LDL Cholesterol Direct 161 mg/dL (50-130) H 05/15/21 14:49 HDL Cholesterol 61 mg/dL (40-59) H 05/15/21 14:49 Cholesterol/HDL Ratio 3.85 % 05/15/21 14:49 TSH 6.060 mlU/mL (0.270-4.200) H 05/15/21 14:49 Hernandez/IV: Voiding Method Incontinent Active Medications - Current Medications Current Medications: Generic Name Dose Route Start Last Admin Trade Name Freq PRN Reason Stop Dose Admin Alprazolam 0.25 mg 05/15/21 18:00 05/16/21 21:24 Alprazolam 0.25 Mg Tab PO 0.25 mg QPM PRN Administration NERVES Amantadine HCl 100 mg 05/15/21 10:00 05/27/21 10:51 Amantadine 100 Mg Cap PO 100 mg QDAY NIELS Administration Apixaban 2.5 mg 05/15/21 14:00 05/27/21 10:51 Apixaban 2.5 Mg Tab PO 2.5 mg Q12HR NIELS Administration Protocol Aspirin 81 mg 05/15/21 10:00 05/27/21 10:51 Aspirin Ec 81 Mg Tab PO 81 mg DAILY NIELS Administration Famotidine 20 mg 05/21/21 10:00 05/27/21 10:51 Famotidine 20 Mg Tab PO 20 mg DAILY NIELS Administration Hydroxyzine Pamoate 25 mg 05/19/21 09:34 05/27/21 00:09 Hydroxyzine Pamoate 25 Mg Cap PO 25 mg Q6H PRN Administration Anxiety Melatonin 5 mg 05/23/21 22:00 Melatonin 5 Mg Tab PO QHS PRN Sleep Miscellaneous Medication 0 each 05/16/21 17:00 05/27/21 13:34 Carbidopa/Levodopa [Rytary Er 61.25 Mg-245 Mg Cap] PO 1 each 0700,1200,1700,2200 NIELS Administration Olanzapine 5 mg 05/23/21 22:00 05/26/21 21:18 Olanzapine 5 Mg Tab PO 5 mg QHS NIELS Administration Polyethylene Glycol 17 gm 05/25/21 16:09 05/25/21 17:08 Polyethylene Glycol 3350 17 Gm Powder PO 17 gm QDAY PRN Administration Constipation Trazodone HCl 100 mg 05/15/21 22:00 05/26/21 21:18 Trazodone 100 Mg Tab PO 100 mg QHS NIELS Administration Valproic Acid 125 mg 05/21/21 10:00 05/27/21 10:51 Valproic Acid 250 Mg/5 Ml Oral Liqd PO 125 mg DAILY NIELS Administration Venlafaxine HCl 75 mg 05/18/21 10:00 05/27/21 10:51 Venlafaxine 75 Mg Tab PO 75 mg BID NIELS Administration Nutrition/Malnutrition Assess - Dietary Evaluation Nutrition/Malnutrition Findings: Nutrition Notes Start: 05/23/21 17:07 Freq: Status: Active Protocol: Document 05/23/21 17:08 ZAHRAA (Rec: 05/23/21 17:13 ZAHRAA [id number]) Nutrition Notes Need for Assessment generated from: LOS Initial or Follow up Assessment Other Pertinent Diagnosis Dementia w/Behavioral Disturbance. Current Diet Regular Diet (since B 05/15). Labs/Tests 05/23: N/A. Pertinent Medications 05/23: Nutritionally unremarkable. 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 Weight Status Appropriate Subjective/Other Information RD consult for LOS assessment. Pt's PO intake of meals has been Good (75-100%), according to ADL notes. Percent of energy/protein needs met: Prescribed Regular Diet provides for energy/protein needs (2,289 Kcal/89 g) during LOS. Burn Absent Trauma Absent GI Symptoms None Food Allergy No Skin Integrity/Comment R-Elbow Bruises. Current % PO Good (75-100%) Minimum of two criteria No #1 Nutrition Diagnosis No nutrition diagnosis at this time Is patient on ventilator? No Is Patient Ambulatory and/or Out of Bed Yes REE-([place] Jeor-ambulatory/OOB) [ 1801.800 NUTR.[id number]] Kcal/Kg value to use for calculation 31 Approximate Energy Requirements Using 2009 kcal/Kg Calculation Used for Recommendations Kcal/kg Additional Notes Protein: 1-1.2 g/Kg IBW; 81-97 g/day. Fluids: 1 ml/Kcal, or as per MD. Nutrition Intervention Revisit per MD consult or patient Sign Off request: Additional Comments Continue monitoring food tolerance, %PO intake of meals , and BM.
[2021-05-27] MEDS: traZODone 100 MG TAB PO SCH (21:18)
[2021-05-28] MEDS: LEVODOPA PO SCH ×4 (07:55→22:06)
[2021-05-28] MEDS: CARBIDOPA PO SCH ×4 (07:55→22:06)
--- NOTE | 2021-05-28 09:01 | Progress Note ---
Subjective Date of service: 05/28/21 Principal diagnosis: Dementia with Behavioral disturbance Subjective Comment: 05/28/21:The patient was seen at breakfast. He reports doing ok. He is calm and cooperative. He reports sleep as good. The patient denies depression and denies suicidal/homicidal ideation. The patient reports having intermittent auditory hallucinations. 05/27/21: The patient was seen this morning. He reports doing well. The patient denies depression and denies suicidal/homicidal ideation. The patient reports having intermittent auditory hallucinations "everyday." 05/26/21:The patient was seen this at breakfast. He states he is doing fine. He reports sleep and appetite as good. The patient denies depression and denies suicidal/homicidal ideation. The patient reports having intermittent auditory hallucinations " it's part of my condition." 05/25/21: The patient was seen this morning. He states he is doing fine. He reports sleep and appetite as good. The patient denies depression and denies s uicidal/homicidal ideation. The patient reports having intermittent auditory hallucinations " whatever is on the screen." 05/24/21:The patient was seen today. He states he feels fine. The patient presents with constricted affect. He denies depression and denies suicidal/homicidal ideation. The patient reports having intermittent auditory hallucinations but unable to state what the voice is saying. Denies visual hallucinations. No aggressive behavior reported. 05/22 The patient was seen today. He is sleeping, but easily arouses. He says he's cold. I pulled the blanket up on the patient. He thanks me. He says he slept well. He denies SI/HI. The patient says "I'm ready to go home." 05/21 Per nurse note: Patient's bed alarm went off. Tech found patient with both legs over railing of bed. He was rocking back and forth to get himself out of bed. When staff attempted to assist him he became angry and tried to kick staff. He was confused and thought his daughter was in his room. Staff tried to reorient patient and help him calm down but he continued to call out and try to get out of bed. This ghost writer and tech asked patient how we could help him. He yelled and tried to kick and hit staff with his fists. Staff had to hold his ankles for a short time to keep him from kicking and getting out of bed. Patient yelled that he could walk and that he wanted to kill this ghost writer. Each time staff moved away from patient he would begin to try to throw his legs over the railing and rock to get up. Hospitalist was called and order received for Geodon 10 mg IM for agitation. Patient continually threatening staff with harm and threatening to get staff fired. After receiving Geodon the patient slowly relaxed and was able to sleep. Will continue to monitor patient for safety. The patient was seen today. He is lying in bed. He easily arouses. He is confused and shocked to hear that he is in the hospital. He replies "the hospital?" when I inform him. He says he slept well. He denies SI/HI. When asked about any hallucinations, the patient replies "I don't think so." The patient has episodes of combativeness, and agitation as reported by the nursing staff. 05/20 The patient was seen today. He is sleeping. He easily arouses. He is confused. He believes he's "at the front entrance." The patient denies SI/HI. When asked about hallucinations, the patient replies "not this time, but I've been asleep very deeply." 05/19/21: The patient was seen eating breakfast. He states he is doing ok. He reports sleep and appetite as fair. The patient presents with constricted affect. He denies being depressed, rates anxiety as 9/10. He denies any current suicidal/homicidal ideation but admits to auditory hallucinations " voices don't make sense." 05/18/21:The patient was seen this morning. He reports doing well. The patient is tearful and depressed. He reports having auditory hallucinations " I hear it everyday, it's like hearing a show on the TV." 05/17/21: The patient was seen this morning. He asked time it was " I'm ready for breakfast." The patient states sleep and appetite as ok. He denies any current suicidal/homicidal ideation and when asked about AVHs he states " I don't know." 05/16/21: The patient was seen this morning with his head downward and poor eye contact. The patient is confused. He states " I want to take a nap, that's all I want to do." He denies any current suicidal/homicidal ideation and denies hallucinations. per nurse, "pt is alert and oriented to person, irritable, combative, refused medication." REVIEW OF SYSTEMS MENTAL STATUS EXAMINATION Assessment and Plan (1) Dementia with behavioral disturbance Treatment Plan Patient admitted for inpatient psychiatric evaluation, medication adjustment and close monitoring The patient's behavior, mood, sleep and appetite will be closely monitored. Patient enrolled in individual and group therapeutic sessions and encouraged to attend. Patient provided with a safe and structured environment. Patient's physical health needs will be addressed by the Hospitalist. Hospitalist Consulted Labs including CBC, CMP, Lipid profile and Hemoglobin A1C levels ordered for baseline reference Social Assessment will be completed and the Drop Wirer will work with patient and family to ensure a suitable and safe disposition Medication adjustment will be made as clinically indicated Continue Valproic Acid 125mg po daily yesterday Continue Olanzapine 5mg po daily [facility]Preservation: - Start Trazodone 50 mg po QHS & 50 mg po QHS PRN between 10 PM & 2 AM for insomnia - Start Melatonin 5 mg po QHS to promote circadian rhythm The patient agreed on the treatment plan, understood the risk, benefit, alternative treatment, potential consequence of no treatment, and gave informed consent. Estimated days: 5 Post hospital care: primary care provider, psychiatric provider Case staffed with Dr. Morocho Medications and Allergies Mental Status Exam Medications and Allergies Allergies Allergy/AdvReac Type Severity Reaction Status Date / Time ibuprofen Allergy Anaphylaxis Verified 05/24/21 14:33 Home Medications Medication Instructions Recorded Confirmed Last Taken Type ALPRAZolam [Xanax TAB] 0.25 mg PO UNK PRN 05/15/21 05/15/21 Unknown History Acyclovir [Zovirax Tab] 400 mg PO BID 05/15/21 05/15/21 Unknown History Apixaban [Eliquis] 2.5 mg PO QHS 05/15/21 05/15/21 Unknown History Aspirin [[place] Aspirin EC] 81 mg PO DAILY 05/15/21 05/15/21 Unknown History Carbidopa/Levodopa [Rytary ER 1 each PO QID 05/15/21 05/16/21 Unknown History 61.25 mg-245 mg Cap] Famotidine [Pepcid] 40 mg PO DAILY 05/15/21 05/15/21 Unknown History Fluticasone/Salmeterol [Advair 1 each IH UNK 05/15/21 05/15/21 Unknown History 250-50 Diskus] Midodrine [Proamatine] 5 mg PO QDAY 05/15/21 05/15/21 Unknown History OLANzapine [ZyPREXA] 2.5 mg PO QHS 05/15/21 05/15/21 Unknown History Pimavanserin Tartrate [Nuplazid] 34 mg PO UNK 05/15/21 05/15/21 Unknown History Venlafaxine [Effexor] 75 mg PO DAILY 05/15/21 05/15/21 Unknown History amantadine HCL [Amantadine] 100 mg PO QDAY 05/15/21 05/15/21 Unknown History traZODone [Desyrel] 100 mg PO QHS 05/15/21 05/15/21 Unknown History Active Meds: Active Medications Alprazolam (Alprazolam 0.25 Mg Tab) 0.25 mg PO QPM PRN PRN Reason: NERVES Last Admin: 05/16/21 21:24 Dose: 0.25 mg Amantadine HCl (Amantadine 100 Mg Cap) 100 mg PO QDAY [facility] Last Admin: 05/27/21 10:51 Dose: 100 mg Apixaban (Apixaban 2.5 Mg Tab) 2.5 mg PO Q12HR [facility]; Protocol Last Admin: 05/27/21 21:17 Dose: 2.5 mg Aspirin (Aspirin Ec 81 Mg Tab) 81 mg PO DAILY [facility] Last Admin: 05/27/21 10:51 Dose: 81 mg Famotidine (Famotidine 20 Mg Tab) 20 mg PO DAILY [facility] Last Admin: 05/27/21 10:51 Dose: 20 mg Hydroxyzine Pamoate (Hydroxyzine Pamoate 25 Mg Cap) 25 mg PO Q6H PRN PRN Reason: Anxiety Last Admin: 05/27/21 00:09 Dose: 25 mg Melatonin (Melatonin 5 Mg Tab) 5 mg PO QHS PRN PRN Reason: Sleep Miscellaneous Medication (Carbidopa/Levodopa [Rytary Er 61.25 Mg-245 Mg Cap]) 0 each PO 0700,1200,1700,2200 [facility] Last Admin: 05/28/21 07:55 Dose: 1 each Olanzapine (Olanzapine 5 Mg Tab) 5 mg PO QHS [facility] Last Admin: 05/27/21 21:17 Dose: 5 mg Polyethylene Glycol (Polyethylene Glycol 3350 17 Gm Powder) 17 gm PO QDAY PRN PRN Reason: Constipation Last Admin: 05/25/21 17:08 Dose: 17 gm Trazodone HCl (Trazodone 100 Mg Tab) 100 mg PO QHS [facility] Last Admin: 05/27/21 21:18 Dose: 100 mg Valproic Acid (Valproic Acid 250 Mg/5 Ml Oral Liqd) 125 mg PO DAILY [facility] Last Admin: 05/27/21 10:51 Dose: 125 mg Venlafaxine HCl (Venlafaxine 75 Mg Tab) 75 mg PO BID [facility] Last Admin: 05/27/21 21:18 Dose: 75 mg Results - Results Labs/Vitals: Laboratory Last Values WBC 8.0 K/mm3 (4.5-11.0) 05/15/21 14:49 RBC 3.49 M/mm3 (3.65-5.03) L 05/15/21 14:49 Hgb 12.4 gm/dl (11.8-15.2) 05/15/21 14:49 Hct 36.0 % (35.5-45.6) 05/15/21 14:49 MCV 103 fl (84-94) H 05/15/21 14:49 MCH 36 pg (28-32) H 05/15/21 14:49 MCHC 34 % (32-34) 05/15/21 14:49 RDW 13.4 % (13.2-15.2) 05/15/21 14:49 Plt Count 292 K/mm3 (140-440) 05/15/21 14:49 Lymph % (Auto) 6.8 % (13.4-35.0) L 05/15/21 14:49 Angelina % (Auto) 6.6 % (0.0-7.3) 05/15/21 14:49 Eos % (Auto) 1.4 % (0.0-4.3) 05/15/21 14:49 Baso % (Auto) 0.6 % (0.0-1.8) 05/15/21 14:49 Lymph # (Auto) 0.5 K/mm3 (1.2-5.4) L 05/15/21 14:49 Angelina # (Auto) 0.5 K/mm3 (0.0-0.8) 05/15/21 14:49 Eos # (Auto) 0.1 K/mm3 (0.0-0.4) 05/15/21 14:49 Baso # (Auto) 0.0 K/mm3 (0.0-0.1) 05/15/21 14:49 Seg Neutrophils % 84.6 % (40.0-70.0) H 05/15/21 14:49 Seg Neutrophils # 6.8 K/mm3 (1.8-7.7) 05/15/21 14:49 Sodium 140 mmol/L (137-145) 05/15/21 14:49 Potassium 4.7 mmol/L (3.6-5.0) 05/15/21 14:49 Chloride 101.5 mmol/L (98-107) 05/15/21 14:49 Carbon Dioxide 21 mmol/L (22-30) L 05/15/21 14:49 Anion Gap 22 mmol/L 05/15/21 14:49 BUN 45 mg/dL (9-20) H 05/15/21 14:49 Creatinine 1.8 mg/dL (0.8-1.3) H 05/15/21 14:49 Estimated GFR 36 ml/min 05/15/21 14:49 BUN/Creatinine Ratio 25 % 05/15/21 14:49 Glucose 117 mg/dL (75-100) H 05/15/21 14:49 Hemoglobin A1c 4.9 % (4-6) 05/15/21 14:49 Calcium 9.5 mg/dL (8.4-10.2) 05/15/21 14:49 Total Bilirubin 0.30 mg/dL (0.1-1.2) 05/15/21 14:49 AST 19 units/L (5-40) 05/15/21 14:49 ALT 14 units/L (7-56) 05/15/21 14:49 Alkaline Phosphatase 89 units/L (35-129) 05/15/21 14:49 Total Protein 7.5 g/dL (6.3-8.2) 05/15/21 14:49 Albumin 4.3 g/dL (3.9-5) 05/15/21 14:49 Albumin/Globulin Ratio 1.3 % 05/15/21 14:49 Triglycerides 119 mg/dL (2-149) 05/15/21 14:49 Cholesterol 235 mg/dL (50-199) H 05/15/21 14:49 LDL Cholesterol Direct 161 mg/dL (50-130) H 05/15/21 14:49 HDL Cholesterol 61 mg/dL (40-59) H 05/15/21 14:49 Cholesterol/HDL Ratio 3.85 % 05/15/21 14:49 TSH 6.060 mlU/mL (0.270-4.200) H 05/15/21 14:49 Last Vital Signs Temp 98.6 F 05/27/21 22:00 Pulse 75 05/27/21 22:00 Resp 18 05/27/21 22:00 BP 116/63 05/27/21 22:00 Pulse Ox 98 05/27/21 22:00
[2021-05-28] MEDS: APIXABAN 2.5 MG TAB PO SCH ×2 (11:47→22:05)
[2021-05-28] MEDS: ASPIRIN EC 81 MG TAB PO SCH (11:47)
[2021-05-28] MEDS: VENLAFAXINE 75 MG TAB PO SCH ×2 (11:47→22:05)
[2021-05-28] MEDS: FAMOTIDINE 20 MG TAB PO SCH (11:47)
[2021-05-28] MEDS: VALPROIC ACID 250 MG/5 ML ORAL LIQD PO SCH (11:48)
--- NOTE | 2021-05-28 15:47 | Progress Note ---
Assessment and Plan Assessment and plan: (1) Atrial fibrillation Continue therapeutic anticoagulation, supportive care, outpatient primary care physician follow-up. (2) Vascular dementia with behavior disturbance Verbal prompting, verbal redirection, benzodiazepine therapy as clinical indicated. (3) Cerebral atherosclerosis Risk factor reduction, antiplatelet therapy as clinically indicated, supportive care. Continue medical management. (4) Malnutrition Increase protein intake, dietary supplementation. #Advanced care planning -Disease education conducted, care plan discussed, diagnoses discussed, prognosis discussed, and patient acknowledges understanding with care plan -Time: +30 min Disposition Plan: Continue medical management Total Time Spent with Patient (Minutes): 30 minutes History Interval history: No acute events over night. The patient denies fevers, chills, nausea, vomiting, abdominal pain, chest pain/pressure, shortness of breath, urinary symptoms, weakness, or confusion. Hospitalist Physical - Constitutional Vitals: Temp Pulse Resp BP Pulse Ox 98.6 F 75 18 116/63 98 05/27/21 22:00 05/27/21 22:00 05/27/21 22:00 05/27/21 22:00 05/27/21 22:00 General appearance: Present: no acute distress, well-nourished, other (Sleeping easily awakens) - EENT Eyes: Present: PERRL, EOM intact ENT: hearing intact, clear oral mucosa, dentition normal - Neck Neck: Present: supple, normal ROM - Respiratory Respiratory effort: normal Respiratory: bilateral: CTA - Cardiovascular Rhythm: regular Heart Sounds: Present: S1 & S2 - Extremities Extremities: no ischemia, pulses intact, pulses symmetrical, No edema, normal temperature, normal color Peripheral Pulses: within normal limits - Abdominal General gastrointestinal: soft, non-tender, non-distended, normal bowel sounds - Integumentary Integumentary: Present: clear, warm, dry - Psychiatric Psychiatric: appropriate mood/affect, cooperative - Neurologic Neurologic: CNII-XII intact - Allied Health Allied health notes reviewed: nursing Results - Labs CBC & Chem 7: 05/15/21 14:49 05/15/21 14:49 Labs: Laboratory Last Values WBC 8.0 K/mm3 (4.5-11.0) 05/15/21 14:49 RBC 3.49 M/mm3 (3.65-5.03) L 05/15/21 14:49 Hgb 12.4 gm/dl (11.8-15.2) 05/15/21 14:49 Hct 36.0 % (35.5-45.6) 05/15/21 14:49 MCV 103 fl (84-94) H 05/15/21 14:49 MCH 36 pg (28-32) H 05/15/21 14:49 MCHC 34 % (32-34) 05/15/21 14:49 RDW 13.4 % (13.2-15.2) 05/15/21 14:49 Plt Count 292 K/mm3 (140-440) 05/15/21 14:49 Lymph % (Auto) 6.8 % (13.4-35.0) L 05/15/21 14:49 [place] % (Auto) 6.6 % (0.0-7.3) 05/15/21 14:49 Eos % (Auto) 1.4 % (0.0-4.3) 05/15/21 14:49 Baso % (Auto) 0.6 % (0.0-1.8) 05/15/21 14:49 Lymph # (Auto) 0.5 K/mm3 (1.2-5.4) L 05/15/21 14:49 [place] # (Auto) 0.5 K/mm3 (0.0-0.8) 05/15/21 14:49 Eos # (Auto) 0.1 K/mm3 (0.0-0.4) 05/15/21 14:49 Baso # (Auto) 0.0 K/mm3 (0.0-0.1) 05/15/21 14:49 Seg Neutrophils % 84.6 % (40.0-70.0) H 05/15/21 14:49 Seg Neutrophils # 6.8 K/mm3 (1.8-7.7) 05/15/21 14:49 Sodium 140 mmol/L (137-145) 05/15/21 14:49 Potassium 4.7 mmol/L (3.6-5.0) 05/15/21 14:49 Chloride 101.5 mmol/L (98-107) 05/15/21 14:49 Carbon Dioxide 21 mmol/L (22-30) L 05/15/21 14:49 Anion Gap 22 mmol/L 05/15/21 14:49 BUN 45 mg/dL (9-20) H 05/15/21 14:49 Creatinine 1.8 mg/dL (0.8-1.3) H 05/15/21 14:49 Estimated GFR 36 ml/min 05/15/21 14:49 BUN/Creatinine Ratio 25 % 05/15/21 14:49 Glucose 117 mg/dL (75-100) H 05/15/21 14:49 Hemoglobin A1c 4.9 % (4-6) 05/15/21 14:49 Calcium 9.5 mg/dL (8.4-10.2) 05/15/21 14:49 Total Bilirubin 0.30 mg/dL (0.1-1.2) 05/15/21 14:49 AST 19 units/L (5-40) 05/15/21 14:49 ALT 14 units/L (7-56) 05/15/21 14:49 Alkaline Phosphatase 89 units/L (35-129) 05/15/21 14:49 Total Protein 7.5 g/dL (6.3-8.2) 05/15/21 14:49 Albumin 4.3 g/dL (3.9-5) 05/15/21 14:49 Albumin/Globulin Ratio 1.3 % 05/15/21 14:49 Triglycerides 119 mg/dL (2-149) 05/15/21 14:49 Cholesterol 235 mg/dL (50-199) H 05/15/21 14:49 LDL Cholesterol Direct 161 mg/dL (50-130) H 05/15/21 14:49 HDL Cholesterol 61 mg/dL (40-59) H 05/15/21 14:49 Cholesterol/HDL Ratio 3.85 % 05/15/21 14:49 TSH 6.060 mlU/mL (0.270-4.200) H 05/15/21 14:49 Hernandez/IV: Voiding Method Toilet Active Medications - Current Medications Current Medications: Generic Name Dose Route Start Last Admin Trade Name Freq PRN Reason Stop Dose Admin Alprazolam 0.25 mg 05/15/21 18:00 05/16/21 21:24 Alprazolam 0.25 Mg Tab PO 0.25 mg QPM PRN Administration NERVES Amantadine HCl 100 mg 05/15/21 10:00 05/28/21 11:47 Amantadine 100 Mg Cap PO 100 mg QDAY NIELS Administration Apixaban 2.5 mg 05/15/21 14:00 05/28/21 11:47 Apixaban 2.5 Mg Tab PO 2.5 mg Q12HR NIELS Administration Protocol Aspirin 81 mg 05/15/21 10:00 05/28/21 11:47 Aspirin Ec 81 Mg Tab PO 81 mg DAILY NIELS Administration Famotidine 20 mg 05/21/21 10:00 05/28/21 11:47 Famotidine 20 Mg Tab PO 20 mg DAILY NIELS Administration Hydroxyzine Pamoate 25 mg 05/19/21 09:34 05/27/21 00:09 Hydroxyzine Pamoate 25 Mg Cap PO 25 mg Q6H PRN Administration Anxiety Melatonin 5 mg 05/23/21 22:00 Melatonin 5 Mg Tab PO QHS PRN Sleep Miscellaneous Medication 0 each 05/16/21 17:00 05/28/21 11:48 Carbidopa/Levodopa [Rytary Er 61.25 Mg-245 Mg Cap] PO 1 each 0700,1200,1700,2200 NIELS Administration Olanzapine 5 mg 05/23/21 22:00 05/27/21 21:17 Olanzapine 5 Mg Tab PO 5 mg QHS NIELS Administration Polyethylene Glycol 17 gm 05/25/21 16:09 05/25/21 17:08 Polyethylene Glycol 3350 17 Gm Powder PO 17 gm QDAY PRN Administration Constipation Trazodone HCl 100 mg 05/15/21 22:00 05/27/21 21:18 Trazodone 100 Mg Tab PO 100 mg QHS NIELS Administration Valproic Acid 125 mg 05/21/21 10:00 05/28/21 11:48 Valproic Acid 250 Mg/5 Ml Oral Liqd PO 125 mg DAILY NIELS Administration Venlafaxine HCl 75 mg 05/18/21 10:00 05/28/21 11:47 Venlafaxine 75 Mg Tab PO 75 mg BID NIELS Administration Nutrition/Malnutrition Assess - Dietary Evaluation Nutrition/Malnutrition Findings: Nutrition Notes Start: 05/23/21 17:07 Freq: Status: Active Protocol: Document 05/23/21 17:08 ZAHRAA (Rec: 05/23/21 17:13 ZAHRAA [id number]) Nutrition Notes Need for Assessment generated from: LOS Initial or Follow up Assessment Other Pertinent Diagnosis Dementia w/Behavioral Disturbance. Current Diet Regular Diet (since B 05/15). Labs/Tests 05/23: N/A. Pertinent Medications 05/23: Nutritionally unremarkable. Height 6 ft Weight 64.8 kg [place] Body Weight (kg) 80.90 BMI 19.3 Intake Prior to Admission Good Weight change and time frame Pt states being unsure if loss body weight [employer]. Weight Status Appropriate Subjective/Other Information RD consult for LOS assessment. Pt's PO intake of meals has been Good (75-100%), according to ADL notes. Percent of energy/protein needs met: Prescribed Regular Diet provides for energy/protein needs (2,289 Kcal/89 g) during LOS. Burn Absent Trauma Absent GI Symptoms None Food Allergy No Skin Integrity/Comment R-Elbow Bruises. Current % PO Good (75-100%) Minimum of two criteria No #1 Nutrition Diagnosis No nutrition diagnosis at this time Is patient on ventilator? No Is Patient Ambulatory and/or Out of Bed Yes REE-([place]-St. Jeor-ambulatory/OOB) [ 1801.800 NUTR.[id number]] Kcal/Kg value to use for calculation 31 Approximate Energy Requirements Using 2009 kcal/Kg Calculation Used for Recommendations Kcal/kg Additional Notes Protein: 1-1.2 g/Kg IBW; 81-97 g/day. Fluids: 1 ml/Kcal, or as per MD. Nutrition Intervention Revisit per MD consult or patient Sign Off request: Additional Comments Continue monitoring food tolerance, %PO intake of meals , and BM.
[2021-05-28] MEDS: POLYETHYLENE GLYCOL 3350 17 GM POWDER PO PRN (18:17)
[2021-05-28 21:54] VITALS: BP 150/75
[2021-05-28] MEDS: traZODone 100 MG TAB PO SCH (22:05)
[2021-05-29] MEDS: LEVODOPA PO SCH ×2 (06:57→12:16)
[2021-05-29] MEDS: CARBIDOPA PO SCH ×2 (06:57→12:16)
--- NOTE | 2021-05-29 08:51 | Discharge Summary ---
Providers - Providers Date of Admission: 05/15/21 00:15 Date of discharge: 05/29/21 Attending physician: DIPAK HUDSON MD 05/14/21 22:55 Consult to Physician [CONS] Routine Comment: Consulting Provider: KATERINE MANN Physician Instructions: Please existing problems. Reason For Exam: New admssion consult 05/15/21 03:05 Physical Therapy Evaluation and Treat [CONS] Routine Comment: Reason For Exam: Unable to walk evaluation 05/15/21 14:14 Speech Therapy Evaluation and Treat [CONS] Stat Reason For Exam: Difficult to swallow Primary care physician: [facility]ITION SPECIALIST Hospitalization Reason for admission: agitation Admitting Diagnosis: F02.81 - DEMENTIA IN OTH DISEASES CLASSD ELSWHR W BEHAVIORAL DISTURB Condition: Stable Hospital course: The patient was provided inpatient psychiatric treatment with safe and supportive environment, group/individual therapy, psychiatric medication, medication adjustment, adverse effect monitor, medical evaluation, medical treatment, social service assessment, social support meeting, placement assessment and psycho-education. The patients mood, cognition, behavior, motivation, compliance to treatment and appreciation on family/social support are improved and stabilized. At the time of discharge, the patient had no suicidal ideas, no homicidal ideas, no aggressive thoughts, no endangering behavior and no debilitating adverse effects. The patient agreed on the treatment plan, understood the risk, benefit, alternative treatment, potential consequence of no treatment, and gave informed consent. Progress Note: 05/28/21:The patient was seen at breakfast. He reports doing ok. He is calm and cooperative. He reports sleep as good. The patient denies depression and denies suicidal/homicidal ideation. The patient reports having intermittent auditory hallucinations. 05/27/21: The patient was seen this morning. He reports doing well. The patient denies depression and denies suicidal/homicidal ideation. The patient reports having intermittent auditory hallucinations "everyday." 05/26/21:The patient was seen this at breakfast. He states he is doing fine. He reports sleep and appetite as good. The patient denies depression and denies suicidal/homicidal ideation. The patient reports having intermittent auditory hallucinations " it's part of my condition." 05/25/21: The patient was seen this morning. He states he is doing fine. He reports sleep and appetite as good. The patient denies depression and denies suicidal/homicidal ideation. The patient reports having intermittent auditory hallucinations " whatever is on the screen." 05/24/21:The patient was seen today. He states he feels fine. The patient presents with constricted affect. He denies depression and denies suicidal/homicidal ideation. The patient reports having intermittent auditory hallucinations but unable to state what the voice is saying. Denies visual hallucinations. No aggressive behavior reported. 05/22 The patient was seen today. He is sleeping, but easily arouses. He says he's cold. I pulled the blanket up on the patient. He thanks me. He says he slept well. He denies SI/HI. The patient says "I'm ready to go home." 05/21 Per nurse note: Patient's bed alarm went off. Tech found patient with both legs over railing of bed. He was rocking back and forth to get himself out of bed. When staff attempted to assist him he became angry and tried to kick staff. He was confused and thought his daughter was in his room. Staff tried to reorient patient and help him calm down but he continued to call out and try to get out of bed. This senior underwriter and tech asked patient how we could help him. He yelled and tried to kick and hit staff with his fists. Staff had to hold his ankles for a short time to keep him from kicking and getting out of bed. Patient yelled that he could walk and that he wanted to kill this senior underwriter. Each time staff moved away from patient he would begin to try to throw his legs over the railing and rock to get up. Hospitalist was called and order received for Geodon 10 mg IM for agitation. Patient continually threatening staff with harm and threatening to get staff fired. After receiving Geodon the patient slowly relaxed and was able to sleep. Will continue to monitor patient for safety. The patient was seen today. He is lying in bed. He easily arouses. He is confused and shocked to hear that he is in the hospital. He replies "the hospital?" when I inform him. He says he slept well. He denies SI/HI. When asked about any hallucinations, the patient replies "I don't think so." The patient has episodes of combativeness, and agitation as reported by the nursing staff. 05/20 The patient was seen today. He is sleeping. He easily arouses. He is confused. He believes he's "at the front entrance." The patient denies SI/HI. When asked about hallucinations, the patient replies "not this time, but I've been asleep very deeply." 05/19/21: The patient was seen eating breakfast. He states he is doing ok. He reports sleep and appetite as fair. The patient presents with constricted af fect. He denies being depressed, rates anxiety as 9/10. He denies any current suicidal/homicidal ideation but admits to auditory hallucinations " voices don't make sense." 05/18/21:The patient was seen this morning. He reports doing well. The patient is tearful and depressed. He reports having auditory hallucinations " I hear it everyday, it's like hearing a show on the TV." 05/17/21: The patient was seen this morning. He asked time it was " I'm ready for breakfast." The patient states sleep and appetite as ok. He denies any current suicidal/homicidal ideation and when asked about AVHs he states " I don't know." 05/16/21: The patient was seen this morning with his head downward and poor eye contact. The patient is confused. He states " I want to take a nap, that's all I want to do." He denies any current suicidal/homicidal ideation and denies hallucinations. per nurse, "pt is alert and oriented to person, irritable, combative, refused medication Disposition: 30 STILL A PATIENT Allergies/Adverse Reactions: Allergies ibuprofen Allergy (Verified 05/24/21 14:33) Anaphylaxis Vital Signs: Last Vital Signs Temp 98.6 F 05/28/21 21:53 Pulse 80 05/28/21 21:53 Resp 20 05/28/21 21:53 BP 150/75 05/28/21 21:53 Pulse Ox 99 05/28/21 21:53 Last Lab: Laboratory Last Values WBC 8.0 K/mm3 (4.5-11.0) 05/15/21 14:49 RBC 3.49 M/mm3 (3.65-5.03) L 05/15/21 14:49 Hgb 12.4 gm/dl (11.8-15.2) 05/15/21 14:49 Hct 36.0 % (35.5-45.6) 05/15/21 14:49 MCV 103 fl (84-94) H 05/15/21 14:49 MCH 36 pg (28-32) H 05/15/21 14:49 MCHC 34 % (32-34) 05/15/21 14:49 RDW 13.4 % (13.2-15.2) 05/15/21 14:49 Plt Count 292 K/mm3 (140-440) 05/15/21 14:49 Lymph % (Auto) 6.8 % (13.4-35.0) L 05/15/21 14:49 [place] % (Auto) 6.6 % (0.0-7.3) 05/15/21 14:49 Eos % (Auto) 1.4 % (0.0-4.3) 05/15/21 14:49 Baso % (Auto) 0.6 % (0.0-1.8) 05/15/21 14:49 Lymph # (Auto) 0.5 K/mm3 (1.2-5.4) L 05/15/21 14:49 [place] # (Auto) 0.5 K/mm3 (0.0-0.8) 05/15/21 14:49 Eos # (Auto) 0.1 K/mm3 (0.0-0.4) 05/15/21 14:49 Baso # (Auto) 0.0 K/mm3 (0.0-0.1) 05/15/21 14:49 Seg Neutrophils % 84.6 % (40.0-70.0) H 05/15/21 14:49 Seg Neutrophils # 6.8 K/mm3 (1.8-7.7) 05/15/21 14:49 Sodium 140 mmol/L (137-145) 05/15/21 14:49 Potassium 4.7 mmol/L (3.6-5.0) 05/15/21 14:49 Chloride 101.5 mmol/L (98-107) 05/15/21 14:49 Carbon Dioxide 21 mmol/L (22-30) L 05/15/21 14:49 Anion Gap 22 mmol/L 05/15/21 14:49 BUN 45 mg/dL (9-20) H 05/15/21 14:49 Creatinine 1.8 mg/dL (0.8-1.3) H 05/15/21 14:49 Estimated GFR 36 ml/min 05/15/21 14:49 BUN/Creatinine Ratio 25 % 05/15/21 14:49 Glucose 117 mg/dL (75-100) H 05/15/21 14:49 Hemoglobin A1c 4.9 % (4-6) 05/15/21 14:49 Calcium 9.5 mg/dL (8.4-10.2) 05/15/21 14:49 Total Bilirubin 0.30 mg/dL (0.1-1.2) 05/15/21 14:49 AST 19 units/L (5-40) 05/15/21 14:49 ALT 14 units/L (7-56) 05/15/21 14:49 Alkaline Phosphatase 89 units/L (35-129) 05/15/21 14:49 Total Protein 7.5 g/dL (6.3-8.2) 05/15/21 14:49 Albumin 4.3 g/dL (3.9-5) 05/15/21 14:49 Albumin/Globulin Ratio 1.3 % 05/15/21 14:49 Triglycerides 119 mg/dL (2-149) 05/15/21 14:49 Cholesterol 235 mg/dL (50-199) H 05/15/21 14:49 LDL Cholesterol Direct 161 mg/dL (50-130) H 05/15/21 14:49 HDL Cholesterol 61 mg/dL (40-59) H 05/15/21 14:49 Cholesterol/HDL Ratio 3.85 % 05/15/21 14:49 TSH 6.060 mlU/mL (0.270-4.200) H 05/15/21 14:49 Core Measure Documentation - Palliative Care Palliative Care/ Comfort Measures: Not Applicable - Core Measures Any of the following diagnoses?: none - VTE Discharge Requirements Deep Vein Thrombosis/Pulmonary Embolism Present on Admission: No Exam - Constitutional Vitals: Temp Pulse Resp BP Pulse Ox 98.6 F 80 20 150/75 99 05/28/21 21:53 05/28/21 21:53 05/28/21 21:53 05/28/21 21:53 05/28/21 21:53 Plan Activity: advance as tolerated Weight Bearing Status: Weight Bear as Tolerated Diet: regular Durable Medical Equipment Needed Upon Discharge: Wheelchair Care Plan Goals: Maintain good and stable mental health. Plan of Treatment: The patient should be compliant with medications, not to use drugs and not to drink alcohol.The patient understands that if suicidal ideas, homicidal ideas, or any endangering thoughts/behavior arise, they should immediately seek for emergent assistance including but not limited to crisis hot line and emergency room. Follow up with outpatient Psychiatrist and PCP within 7 - 14 days of discharge. Follow up with: PRIMARY CARE,MD [Primary Care Provider] - 7 Days Prescriptions: traZODone [Desyrel] 100 mg PO QHS 30 Days #30 tablet OLANzapine [ZyPREXA] 5 mg PO QHS 30 Days #30 tablet Venlafaxine [Effexor] 75 mg PO BID 30 Days #60 tablet hydrOXYzine PAMOATE [Vistaril] 25 mg PO Q6H PRN 30 Days #60 capsule PRN Reason: Anxiety ALPRAZolam [Xanax TAB] 0.25 mg PO QPM PRN 30 Days #15 tablet PRN Reason: NERVES
[2021-05-29] MEDS: APIXABAN 2.5 MG TAB PO SCH (09:05)
[2021-05-29] MEDS: FAMOTIDINE 20 MG TAB PO SCH (09:05)
[2021-05-29] MEDS: ASPIRIN EC 81 MG TAB PO SCH (09:05)
[2021-05-29] MEDS: VALPROIC ACID 250 MG/5 ML ORAL LIQD PO SCH (09:06)
[2021-05-29] MEDS: VENLAFAXINE 75 MG TAB PO SCH (09:06)
--- NOTE | 2021-05-29 11:41 | Progress Note ---
Assessment and Plan Assessment and plan: (1) Atrial fibrillation Continue therapeutic anticoagulation, supportive care, outpatient primary care physician follow-up. (2) Vascular dementia with behavior disturbance Verbal prompting, verbal redirection, benzodiazepine therapy as clinical indicat ed. (3) Cerebral atherosclerosis Risk factor reduction, antiplatelet therapy as clinically indicated, supportive care. Continue medical management. (4) Malnutrition Increase protein intake, dietary supplementation. #Advanced care planning -Disease education conducted, care plan discussed, diagnoses discussed, prognosis discussed, and patient acknowledges understanding with care plan -Time: +30 min Thank you for this interesting consult. Patient will continue with the above listed plan. Please not hesitate to reach out to medicine should any questions arise. Medicine will be signing off. Disposition Plan: Discharging home Total Time Spent with Patient (Minutes): 30 minutes History Interval history: No acute events over night. The patient denies fevers, chills, nausea, vomiting, abdominal pain, chest pain/pressure, shortness of breath, urinary symptoms, weakness, or confusion. Hospitalist Physical - Constitutional Vitals: Temp Pulse Resp BP Pulse Ox 98.6 F 80 20 150/75 99 05/28/21 21:53 05/28/21 21:53 05/28/21 21:53 05/28/21 21:53 05/28/21 21:53 General appearance: Present: no acute distress, well-nourished, other (Sleeping easily awakens) - EENT Eyes: Present: PERRL, EOM intact ENT: hearing intact, clear oral mucosa - Neck Neck: Present: supple, normal ROM - Respiratory Respiratory effort: normal Respiratory: bilateral: CTA - Cardiovascular Rhythm: regular Heart Sounds: Present: S1 & S2 - Extremities Extremities: no ischemia, pulses intact, pulses symmetrical, No edema, normal temperature, normal color Peripheral Pulses: within normal limits - Abdominal General gastrointestinal: soft, non-tender, non-distended, normal bowel sounds - Integumentary Integumentary: Present: clear, warm, dry - Psychiatric Psychiatric: appropriate mood/affect, cooperative - Neurologic Neurologic: CNII-XII intact - Allied Health Allied health notes reviewed: nursing Results - Labs CBC & Chem 7: 05/15/21 14:49 05/15/21 14:49 Labs: Laboratory Last Values WBC 8.0 K/mm3 (4.5-11.0) 05/15/21 14:49 RBC 3.49 M/mm3 (3.65-5.03) L 05/15/21 14:49 Hgb 12.4 gm/dl (11.8-15.2) 05/15/21 14:49 Hct 36.0 % (35.5-45.6) 05/15/21 14:49 MCV 103 fl (84-94) H 05/15/21 14:49 MCH 36 pg (28-32) H 05/15/21 14:49 MCHC 34 % (32-34) 05/15/21 14:49 RDW 13.4 % (13.2-15.2) 05/15/21 14:49 Plt Count 292 K/mm3 (140-440) 05/15/21 14:49 Lymph % (Auto) 6.8 % (13.4-35.0) L 05/15/21 14:49 [place] % (Auto) 6.6 % (0.0-7.3) 05/15/21 14:49 Eos % (Auto) 1.4 % (0.0-4.3) 05/15/21 14:49 Baso % (Auto) 0.6 % (0.0-1.8) 05/15/21 14:49 Lymph # (Auto) 0.5 K/mm3 (1.2-5.4) L 05/15/21 14:49 [place] # (Auto) 0.5 K/mm3 (0.0-0.8) 05/15/21 14:49 Eos # (Auto) 0.1 K/mm3 (0.0-0.4) 05/15/21 14:49 Baso # (Auto) 0.0 K/mm3 (0.0-0.1) 05/15/21 14:49 Seg Neutrophils % 84.6 % (40.0-70.0) H 05/15/21 14:49 Seg Neutrophils # 6.8 K/mm3 (1.8-7.7) 05/15/21 14:49 Sodium 140 mmol/L (137-145) 05/15/21 14:49 Potassium 4.7 mmol/L (3.6-5.0) 05/15/21 14:49 Chloride 101.5 mmol/L (98-107) 05/15/21 14:49 Carbon Dioxide 21 mmol/L (22-30) L 05/15/21 14:49 Anion Gap 22 mmol/L 05/15/21 14:49 BUN 45 mg/dL (9-20) H 05/15/21 14:49 Creatinine 1.8 mg/dL (0.8-1.3) H 05/15/21 14:49 Estimated GFR 36 ml/min 05/15/21 14:49 BUN/Creatinine Ratio 25 % 05/15/21 14:49 Glucose 117 mg/dL (75-100) H 05/15/21 14:49 Hemoglobin A1c 4.9 % (4-6) 05/15/21 14:49 Calcium 9.5 mg/dL (8.4-10.2) 05/15/21 14:49 Total Bilirubin 0.30 mg/dL (0.1-1.2) 05/15/21 14:49 AST 19 units/L (5-40) 05/15/21 14:49 ALT 14 units/L (7-56) 05/15/21 14:49 Alkaline Phosphatase 89 units/L (35-129) 05/15/21 14:49 Total Protein 7.5 g/dL (6.3-8.2) 05/15/21 14:49 Albumin 4.3 g/dL (3.9-5) 05/15/21 14:49 Albumin/Globulin Ratio 1.3 % 05/15/21 14:49 Triglycerides 119 mg/dL (2-149) 05/15/21 14:49 Cholesterol 235 mg/dL (50-199) H 05/15/21 14:49 LDL Cholesterol Direct 161 mg/dL (50-130) H 05/15/21 14:49 HDL Cholesterol 61 mg/dL (40-59) H 05/15/21 14:49 Cholesterol/HDL Ratio 3.85 % 05/15/21 14:49 TSH 6.060 mlU/mL (0.270-4.200) H 05/15/21 14:49 Hernandez/IV: Voiding Method Incontinent Active Medications - Current Medications Current Medications: Generic Name Dose Route Start Last Admin Trade Name Freq PRN Reason Stop Dose Admin Alprazolam 0.25 mg 05/15/21 18:00 05/16/21 21:24 Alprazolam 0.25 Mg Tab PO 0.25 mg QPM PRN Administration NERVES Amantadine HCl 100 mg 05/15/21 10:00 05/29/21 09:05 Amantadine 100 Mg Cap PO 100 mg QDAY NIELS Administration Apixaban 2.5 mg 05/15/21 14:00 05/29/21 09:05 Apixaban 2.5 Mg Tab PO 2.5 mg Q12HR NIELS Administration Protocol Aspirin 81 mg 05/15/21 10:00 05/29/21 09:05 Aspirin Ec 81 Mg Tab PO 81 mg DAILY NIELS Administration Famotidine 20 mg 05/21/21 10:00 05/29/21 09:05 Famotidine 20 Mg Tab PO 20 mg DAILY NIELS Administration Hydroxyzine Pamoate 25 mg 05/19/21 09:34 05/27/21 00:09 Hydroxyzine Pamoate 25 Mg Cap PO 25 mg Q6H PRN Administration Anxiety Melatonin 5 mg 05/23/21 22:00 Melatonin 5 Mg Tab PO QHS PRN Sleep Miscellaneous Medication 0 each 05/16/21 17:00 05/29/21 06:57 Carbidopa/Levodopa [Rytary Er 61.25 Mg-245 Mg Cap] PO 1 each 0700,1200,1700,2200 NIELS Administration Olanzapine 5 mg 05/23/21 22:00 05/28/21 22:05 Olanzapine 5 Mg Tab PO 5 mg QHS NIELS Administration Polyethylene Glycol 17 gm 05/25/21 16:09 05/28/21 18:17 Polyethylene Glycol 3350 17 Gm Powder PO 17 gm QDAY PRN Administration Constipation Trazodone HCl 100 mg 05/15/21 22:00 05/28/21 22:05 Trazodone 100 Mg Tab PO 100 mg QHS NIELS Administration Valproic Acid 125 mg 05/21/21 10:00 05/29/21 09:06 Valproic Acid 250 Mg/5 Ml Oral Liqd PO 125 mg DAILY NIELS Administration Venlafaxine HCl 75 mg 05/18/21 10:00 05/29/21 09:06 Venlafaxine 75 Mg Tab PO 75 mg BID NIELS Administration Nutrition/Malnutrition Assess - Dietary Evaluation Nutrition/Malnutrition Findings: Nutrition Notes Start: 05/23/21 17:07 Freq: Status: Active Protocol: Document 05/23/21 17:08 ZAHRAA (Rec: 05/23/21 17:13 [email or web address] [id number]) Nutrition Notes Need for Assessment generated from: LOS Initial or Follow up Assessment Other Pertinent Diagnosis Dementia w/Behavioral Disturbance. Current Diet Regular Diet (since B 05/15). Labs/Tests 05/23: N/A. Pertinent Medications 05/23: Nutritionally unremarkable. Height 6 ft Weight 64.8 kg [place] Body Weight (kg) 80.90 BMI 19.3 Intake Prior to Admission Good Weight change and time frame Pt states being unsure if loss body weight [employer]IST[employer]. Weight Status Appropriate Subjective/Other Information RD consult for LOS assessment. Pt's PO intake of meals has been Good (75-100%), according to ADL notes. Percent of energy/protein needs met: Prescribed Regular Diet provides for energy/protein needs (2,289 Kcal/89 g) during LOS. Burn Absent Trauma Absent GI Symptoms None Food Allergy No Skin Integrity/Comment R-Elbow Bruises. Current % PO Good (75-100%) Minimum of two criteria No #1 Nutrition Diagnosis No nutrition diagnosis at this time Is patient on ventilator? No Is Patient Ambulatory and/or Out of Bed Yes REE-([place]-St. Jeor-ambulatory/OOB) [ 1801.800 [id number]] Kcal/Kg value to use for calculation 31 Approximate Energy Requirements Using 2009 kcal/Kg Calculation Used for Recommendations Kcal/kg Additional Notes Protein: 1-1.2 g/Kg IBW; 81-97 g/day. Fluids: 1 ml/Kcal, or as per MD. Nutrition Intervention Revisit per MD consult or patient Sign Off request: Additional Comments Continue monitoring food tolerance, %PO intake of meals , and BM.
== END 2021-05-29 12:41 | disposition home or self-care (01) | DRG 884 ==
LOC: UNDOADMIN 15:57 → 3A 15:57 → 5A 05-15 00:15
PROVIDERS: ADMIT Psychiatry & Neurology Psychiatry; ATTEND Psychiatry & Neurology Psychiatry
DX: F01.51 Vascular dementia, unspecified severity, with behavioral disturbance (principal); E44.0 Moderate protein-calorie malnutrition; Z68.1 Body mass index [BMI] 19.9 or less, adult; G20 Parkinson's disease; F32.9 Major depressive disorder, single episode, unspecified; I48.91 Unspecified atrial fibrillation; Z79.82 Long term (current) use of aspirin; Z87.891 Personal history of nicotine dependence; Z88.8 Allergy status to other drugs, medicaments and biological substances
CPT/HCPCS: 36415; 80053; 80061; 83036; 84443; 85025; 94640; G0378; J3486